=== PATIENT | female | born 1950 | race Caucasian/White ===

== ENCOUNTER 2017-04-09 08:29 | Day surgery (SDC) | payer MEDICARE, MEDICAID, SELFPAY | END 2017-04-09 09:10 | disposition home or self-care (01) | PROVIDERS: Family Provider Family Medicine; Visit Provider Nurse Anesthetist, Certified Registered | DX: M50.30 Other cervical disc degeneration, unspecified cervical region (principal); M54.02 Panniculitis affecting regions of neck and back, cervical region; M47.892 Other spondylosis, cervical region; Z79.899 Other long term (current) drug therapy | CPT/HCPCS: 64490; 64491; 64492; 82962; J1030 ==

== ENCOUNTER → 2017-05-31 08:34 | Outpatient (POV) | payer MEDICARE, MEDICAID, SELFPAY ==
[2017-05-31 08:46] VITALS: BP 138/74; PULSE 74; RESP 16; O2SAT 97; BMI 22.6
--- NOTE | 2017-05-31 08:59 | HMH.PAINSOAP ---
[facility] Pain Management SOAP Note Subjective:: She is a pleasant 66-year-old white female who presents today to discuss her last round of medial branch blocks of the cervical spine. Patient did very well for a week she states that she had 80-90% relief during that time. Patient also using a Flector patch. Patient states with the patch today that she has 0 pain. Patient is doing well on her Lyrica 75 mg once daily. She states that this significantly increases her functionality and helps with her fibromyalgia and neuropathy. Patient is currently doing well on all medications and denies side effects including sleepiness and constipation. Like to discuss RFA of the cervical facets. Patient has tried and failed physical therapy, conservative therapies including injections. Patient's cervical is axial in nature. Patient states range of motion increases her pain and rest relieves it. ROS General: no recent weight change, no fever, no sleep disturbances Respiratory: no cough, no shortness of air, no recurring pulmonary infections Cardiovascular/Peripheral Vascular: No chest pain, No palpitations, no edema, no shortness of breath. Gastrointestinal: no incontinence, normal bowel movements reported Genitourinary: no incontinence Musculoskeletal: Neck pain, back pain Psychiatric: normal mood/ affect, anxiety Neurological: [denies weakness in extremities], [denies balance issues] Objective:: Physical Exam General: Alert and oriented x3, no acute distress, pleasant and cooperative, [on room air] Lungs: Resps E/U, Symmetrical chest expansion Musculoskeletal: Flexion and extension of cervical spine somewhat guarded secondary to pain, deep tendon reflexes normal, strength in upper and lower extremities [5/5], normal gait noted Neurological: speech clear, manager embalmer funeral director equal, no gross sensory deficits Assessment:: Degenerative disc disease cervical spine, cervical facet arthropathy, cervical spondylosis, degenerative disc disease of the lumbar spine, fibromyalgia Plan:: Plan to refill her medications today Lyrica 75 mg 1 p.o. daily and [place] 5 mg 1 p.o. daily patient's [place] #[id number] reviewed and appropriate. Since last urine drug screen was appropriate she is going for another one today. We will follow-up with this. Patient also receiving a benzodiazepine from her primary care provider. I discussed the risks of taking both medications together and she understands. She is aware that she needs to call the office if she is having any side effects. He is to proceed with an RFA of the cervical spine. We will plan to ask insurance approval for cervical RFA of the C5-C6 C6-C7 C7-T1. We will start with the left side. I discussed in length with the patient both risks and benefits and she wishes to proceed. This note was dictated using voice recognition software may contain errors or omissions
--- NOTE | 2017-05-31 09:02 | P.CONS_ITS ---
[facility] Pain Management SOAP Note Subjective:: She is a pleasant 66-year-old white female who presents today to discuss her last round of medial branch blocks of the cervical spine. Patient did very well for a week she states that she had 80-90% relief during that time. Patient also using a Flector patch. Patient states with the patch today that she has 0 pain. Patient is doing well on her Lyrica 75 mg once daily. She states that this significantly increases her functionality and helps with her fibromyalgia and neuropathy. Patient is currently doing well on all medications and denies side effects including sleepiness and constipation. Like to discuss RFA of the cervical facets. Patient has tried and failed physical therapy, conservative therapies including injections. Patient's cervical is axial in nature. Patient states range of motion increases her pain and rest relieves it. ROS General: no recent weight change, no fever, no sleep disturbances Respiratory: no cough, no shortness of air, no recurring pulmonary infections Cardiovascular/Peripheral Vascular: No chest pain, No palpitations, no edema, no shortness of breath. Gastrointestinal: no incontinence, normal bowel movements reported Genitourinary: no incontinence Musculoskeletal: Neck pain, back pain Psychiatric: normal mood/ affect, anxiety Neurological: [denies weakness in extremities], [denies balance issues] Objective:: Physical Exam General: Alert and oriented x3, no acute distress, pleasant and cooperative, [ on room air] Lungs: Resps E/U, Symmetrical chest expansion Musculoskeletal: Flexion and extension of cervical spine somewhat guarded secondary to pain, deep tendon reflexes normal, strength in upper and lower extremities [5/5], normal gait noted Neurological: speech clear, telephone plant power operator equal, no gross sensory deficits Assessment:: Degenerative disc disease cervical spine, cervical facet arthropathy, cervical spondylosis, degenerative disc disease of the lumbar spine, fibromyalgia Plan:: Plan to refill her medications today Lyrica 75 mg 1 p.o. daily and [place] 5 mg 1 p.o. daily patient's [place] #[id number] reviewed and appropriate. Since last urine drug screen was appropriate she is going for another one today. We will follow-up with this. Patient also receiving a benzodiazepine from her primary care provider. I discussed the risks of taking both medications together and she understands. She is aware that she needs to call the office if she is having any side effects. He is to proceed with an RFA of the cervical spine. We will plan to ask insurance approval for cervical RFA of the C5-C6 C6-C7 C7- T1. We will start with the left side. I discussed in length with the patient both risks and benefits and she wishes to proceed. This note was dictated using voice recognition software may contain errors or omissions
[2017-05-31 10:54] LABS: Amphetamine/Metha Screen,Urine Negative ng/mL (<1000); Barbiturates Screen,Urine Negative ng/mL (<200); Benzodiazepines Screen,Urine Positive ng/mL (200); Cannabinoid Screen,Urine Negative ng/mL (<50); Cocaine Screen,Urine Negative ng/g (<300); Methadone Screen,Urine Negative ng/mL (<300); Opiate Screen,Urine Positive ng/mL (<300); Phencyclidine Screen,Urine Negative ng/mL (<25)
--- NOTE | 2017-05-31 15:19 | PC.PHONENOTE ---
called in rx for Lyrica 75mg BID with 2 refills to pt pharmacy per provider order
[2017-06-06 16:13] LABS: Codeine Negative (Cutoff=100); Hydrocodone Positive (.); Hydromorphone Negative (Cutoff=100); Morphine Negative (Cutoff=100)
[2017-06-06 17:15] LABS: Opiates Positive (.)
== END ==
PROVIDERS: Family Provider Family Medicine; PCP Family Medicine; Visit Provider Clinical Nurse Specialist Family Health
DX: M51.36 Other intervertebral disc degeneration, lumbar region (principal); M47.812 Spondylosis without myelopathy or radiculopathy, cervical region; Z79.899 Other long term (current) drug therapy
CPT/HCPCS: 99212; 80305; 80361; 80365; G0480

== ENCOUNTER 2017-07-02 12:12 | Day surgery (SDC) | payer MEDICARE, MEDICAID, SELFPAY ==
[2017-07-02 12:48] VITALS: BP 141/72; PULSE 66; RESP 16; O2SAT 97; BMI 23.6
--- NOTE | 2017-07-02 12:57 | PC.NURSE ---
patient alert/oriented during assessment. non-labored breathing noted, patient does not appear distressed during assessment.
[2017-07-02 13:27] VITALS: BP 148/93; PULSE 68; RESP 18
[2017-07-02 13:28] VITALS: BP 161/105; PULSE 69; RESP 20
--- NOTE | 2017-07-02 13:45 | P.PCN_ITS ---
- Procedure Date: 07/02/17 Time: 13:21 Anesthesiologist:: Beni Navarro MD Complications:: None Pre-procedure Diagnosis:: Degenerative disc disease of cervical spine with cervical facet arthropathy and cervical spondylosis Post-procedure Diagnosis:: Same Indications for Procedure:: This patient is a pleasant 66-year-old white female who we are treating for neck pain with cervical spondylosis. She had previous RFA of C5-6, C6-7 and C7- T1 facet joints of the left side. She is doing very well from this. She presents for right sided radiofrequency ablation at the same levels. Procedure Details:: Cervical RFA Informed consent was obtained and the risk and benefits of the procedure was explained to the patient. Patient was placed prone on the procedure table. The patient was prepped and draped in sterile fashion. C-arm fluoroscopy was used to view the lumbar spine. The skin and subcutaneous tissues were anesthetized using lidocaine. I placed 20-gauge RF needles into the facet joints of [C5-6, C6-7 and C7-T1] levels on the right side. We underwent sensory stimulation. There is good sensory stimulation at 0.8 V. We underwent motor stimulation. There is no motor stimulation at 2.5 V. We then anesthetized these levels with lidocaine and Depo-Medrol. I used a total of 40 mg Depo-Medrol for all 3 levels. I then burned all 3 levels of C5-6, C6-7 and C7-T1 facet joint/medial branches on the left side for 60 seconds at 80?C. We underwent 4 peng again each 1 for 60 seconds at 80?C. Patient tolerated the procedure well with no complication. Plan and Disposition:: We will follow-up with her in 1 month. We will reevaluate her symptoms at that time.
[2017-07-02 13:50] VITALS: BP 145/75; PULSE 63; O2SAT 97
[2017-07-06 10:03] LABS: POC Glucose,Bedside 123 mg/dL (70-110)
== END 2017-07-02 14:00 | disposition home or self-care (01) ==
LOC: SC.PAINP 12:14
PROVIDERS: Family Provider Family Medicine; PCP Family Medicine; Visit Provider Anesthesiology
DX: M50.30 Other cervical disc degeneration, unspecified cervical region (principal); M46.82 Other specified inflammatory spondylopathies, cervical region; M47.892 Other spondylosis, cervical region
CPT/HCPCS: 64633; 64634; 82962; J1030

== ENCOUNTER → 2017-07-19 08:44 | Outpatient (POV) | payer MEDICARE, MEDICAID, SELFPAY ==
[2017-07-19 09:11] VITALS: BP 114/68; PULSE 76; RESP 18; TEMP 36.6; O2SAT 96; BMI 23.6
--- NOTE | 2017-07-19 09:14 | HMH.PAINSOAP ---
[facility] Pain Management SOAP Note Subjective:: Patient is a 66-year-old white female who presents today for follow-up after cervical RFA. Patient states it has helped some but it has not been as beneficial as she thought. Patient rates her pain an 8 out of 10 today. Patient does take [place] 5 mg 1 p.o. daily. Patient is also on clonazepam from her primary care physician. She understands that we cannot increase her pain medication due to her benzodiazepine. Patient is here also for refills of medication. Patient states most of her pain is in her neck radiating to her shoulders at times. And her right knee. Resting makes it better while movement makes worse. Patient denies any side effects to her medication.ROS General: no recent weight change, no fever, no sleep disturbances Respiratory: no cough, no shortness of air, no recurring pulmonary infections Cardiovascular/Peripheral Vascular: No chest pain, No palpitations, no edema, no shortness of breath. Gastrointestinal: no incontinence, normal bowel movements reported Genitourinary: no incontinence Musculoskeletal: Neck pain, knee pain, low back pain Psychiatric: normal mood/ affect Neurological: [denies weakness in extremities], [denies balance issues] Objective:: Physical Exam General: Alert and oriented x3, no acute distress, pleasant and cooperative, [on room air] Lungs: Resps E/U, Symmetrical chest expansion, Eyes: PERRL Musculoskeletal: Flexion and extension of lumbar spine somewhat guarded secondary to pain, deep tendon reflexes normal, strength in upper and lower extremities [5/5], normal gait noted Neurological: speech clear, oil developer equal, no gross sensory deficits Assessment:: Facet arthropathy of the cervical spine, arthritis of right knee Plan:: Refill the patient's [place] 5 mg 1 p.o. daily. Patient's WILLIAM #[id number] reviewed and appropriate. Patient's UDS appropriate in the past. We will give HER-2 months worth of prescriptions and see her back in [address] Navarro has reviewed this chart and agrees with this plan of care Patient has been prescribed a controlled substance after being counseled on the medication, medication safety, and possible side effects. WILLIAM report has been obtained and reviewed prior to prescription and found to be appropriate. Opioid contract was reviewed and signed by the patient, and that they have agreed to all of the terms set forth by our compliance program. This note was dictated using voice recognition software and may contain errors or omissions
--- NOTE | 2017-07-19 09:19 | P.CONS_ITS ---
[facility] Pain Management SOAP Note Subjective:: Patient is a 66-year-old white female who presents today for follow-up after cervical RFA. Patient states it has helped some but it has not been as beneficial as she thought. Patient rates her pain an 8 out of 10 today. Patient does take [place] 5 mg 1 p.o. daily. Patient is also on clonazepam from her primary care physician. She understands that we cannot increase her pain medication due to her benzodiazepine. Patient is here also for refills of medication. Patient states most of her pain is in her neck radiating to her shoulders at times. And her right knee. Resting makes it better while movement makes worse. Patient denies any side effects to her medication.ROS General: no recent weight change, no fever, no sleep disturbances Respiratory: no cough, no shortness of air, no recurring pulmonary infections Cardiovascular/Peripheral Vascular: No chest pain, No palpitations, no edema, no shortness of breath. Gastrointestinal: no incontinence, normal bowel movements reported Genitourinary: no incontinence Musculoskeletal: Neck pain, knee pain, low back pain Psychiatric: normal mood/ affect Neurological: [denies weakness in extremities], [denies balance issues] Objective:: Physical Exam General: Alert and oriented x3, no acute distress, pleasant and cooperative, [ on room air] Lungs: Resps E/U, Symmetrical chest expansion, Eyes: PERRL Musculoskeletal: Flexion and extension of lumbar spine somewhat guarded secondary to pain, deep tendon reflexes normal, strength in upper and lower extremities [5/5], normal gait noted Neurological: speech clear, commercial construction estimator equal, no gross sensory deficits Assessment:: Facet arthropathy of the cervical spine, arthritis of right knee Plan:: Refill the patient's [place] 5 mg 1 p.o. daily. Patient's [place]IAM #[id number] reviewed and appropriate. Patient's UDS appropriate in the past. We will give HER-2 months worth of prescriptions and see her back in [address] Navarro has reviewed this chart and agrees with this plan of care Patient has been prescribed a controlled substance after being counseled on the medication, medication safety, and possible side effects. WILLIAM report has been obtained and reviewed prior to prescription and found to be appropriate. Opioid contract was reviewed and signed by the patient, and that they have agreed to all of the terms set forth by our compliance program. This note was dictated using voice recognition software and may contain errors or omissions
== END ==
PROVIDERS: Family Provider Family Medicine; PCP Family Medicine; Visit Provider Clinical Nurse Specialist Family Health
DX: M12.88 Other specific arthropathies, not elsewhere classified, other specified site (principal); M17.11 Unilateral primary osteoarthritis, right knee
CPT/HCPCS: 99212

== ENCOUNTER → 2017-08-09 08:20 | Outpatient (POV) | payer MEDICARE, MEDICAID, SELFPAY ==
--- NOTE | 2017-08-09 09:22 | HMH.PAINSOAP ---
[facility] Pain Management SOAP Note Subjective:: This patient is a pleasant 66-year-old white female who we are seeing for neck pain and low back pain. She had cervical RFA several weeks ago. She presents today with increasing neck and low back pain. Injections only give her temporary relief. She does say that her [place] 5 mg once daily does help. I reassured her that she can take 1 pill per day however we cannot increase this because she continues on clonazepam. She has no side effects with her medications. Her [place] and urine drug screen are all appropriate. [place] #[id number]. I have also given information on intrathecal therapy. She is not interested in pursuing a pump at this time however she will review the information. Objective:: Alert and oriented ?3 in no acute distress. Patient does have a normal gait. Tenderness over the midline of the cervical spine and lumbar spine. Motor strength of the upper and lower extremities is 5/5. There is no gross sensory deficit. Assessment:: Degenerative disc disease of the cervical and lumbar spine with cervical and lumbar spondylosis with radiculopathy symptoms Plan:: She can continue taking her [place] 5 mg 1 tablet per day. Will not increase her because she remains on clonazepam daily. I have given her information on intrathecal therapy. We will follow-up with her at her next regularly scheduled appointment. Has any problems or questions she is to call us in the pain clinic.
[2017-08-09 09:23] VITALS: BP 101/58; PULSE 86; RESP 18; TEMP 36.6; O2SAT 98; BMI 21.9
--- NOTE | 2017-08-09 09:26 | P.CONS_ITS ---
[facility] Pain Management SOAP Note Subjective:: This patient is a pleasant 66-year-old white female who we are seeing for neck pain and low back pain. She had cervical RFA several weeks ago. She presents today with increasing neck and low back pain. Injections only give her temporary relief. She does say that her [place] 5 mg once daily does help. I reassured her that she can take 1 pill per day however we cannot increase this because she continues on clonazepam. She has no side effects with her medications. Her [place] and urine drug screen are all appropriate. [place] # [id number]. I have also given information on intrathecal therapy. She is not interested in pursuing a pump at this time however she will review the information. Objective:: Alert and oriented ?3 in no acute distress. Patient does have a normal gait. Tenderness over the midline of the cervical spine and lumbar spine. Motor strength of the upper and lower extremities is 5/5. There is no gross sensory deficit. Assessment:: Degenerative disc disease of the cervical and lumbar spine with cervical and lumbar spondylosis with radiculopathy symptoms Plan:: She can continue taking her [place] 5 mg 1 tablet per day. Will not increase her because she remains on clonazepam daily. I have given her information on intrathecal therapy. We will follow-up with her at her next regularly scheduled appointment. Has any problems or questions she is to call us in the pain clinic.
== END ==
PROVIDERS: Family Provider Family Medicine; PCP Family Medicine; Visit Provider Anesthesiology
DX: M47.22 Other spondylosis with radiculopathy, cervical region (principal); M47.26 Other spondylosis with radiculopathy, lumbar region
CPT/HCPCS: 99212

== ENCOUNTER → 2017-10-04 08:47 | Outpatient (POV) | payer MEDICARE, MEDICAID, SELFPAY ==
[2017-10-04 09:14] VITALS: BP 110/81; PULSE 94; RESP 18; TEMP 36.6; O2SAT 97; BMI 22.6
--- NOTE | 2017-10-04 09:27 | P.CONS_ITS ---
[facility] Pain Management SOAP Note Subjective:: This patient is a pleasant 66-year-old white female who presents today for medication refills. Patient is currently being managed with [place] 5 mg 1 p.o. daily. Patient states that this helps her pain 60-70%. She denies any side effects. Patient's [place] #[id number] reviewed and appropriate. Patient's UDS has been appropriate in the past. Patient can take 1 pill per day however we cannot increase this because she continues with her clonazepam. Patient understands this. We have given her information on neuro stimulation and intrathecal therapy however due to the efficacy of her medication she would like to continue in this direction at this time. Patient has had injection of past with good relief. Patient rates her pain a 5 out of 10 today. Mostly in her legs. ROS General: no recent weight change, no fever, no sleep disturbances Respiratory: no cough, no shortness of air, no recurring pulmonary infections Cardiovascular/Peripheral Vascular: No chest pain, No palpitations, no edema, no shortness of breath. Gastrointestinal: no incontinence, normal bowel movements reported Genitourinary: no incontinence Musculoskeletal: Back pain, leg pain Psychiatric: normal mood/ affect Neurological: [denies weakness in extremities], [denies balance issues] Objective:: Physical Exam General: Alert and oriented x3, no acute distress, pleasant and cooperative, [ on room air] Lungs: Resps E/U, Symmetrical chest expansion, Eyes: PERRL Musculoskeletal: Flexion and extension of cervical and lumbar spine somewhat guarded secondary to pain, deep tendon reflexes normal, strength in upper and lower extremities [5/5], antalgic gait noted Neurological: speech clear, labor economist equal, no gross sensory deficits Assessment:: Degenerative disc disease of the cervical and lumbar spine with cervical and lumbar spondylosis with radiculopathy symptoms Plan:: We will refill her [place] 5 mg 1 tablet daily. We will give HER-2 months worth of prescriptions. 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 We will follow-up with her in [address] Navarro has reviewed this chart and agrees with this plan of care. The patient has any problems prior to her next appointment she is to call our office. Patient scattered drug screen both reviewed. Patient has been prescribed a controlled substance after being counseled on the medication, medication safety, and possible side effects. WILLIAM report has been obtained and reviewed prior to prescription and found to be appropriate. Opioid contract was reviewed and signed by the patient, and that they have agreed to all of the terms set forth by our compliance program. This note was dictated using voice recognition software and may contain errors or omissions
[2017-10-04 18:28] LABS: Amphetamine/Metha Screen,Urine Negative ng/mL (<1000); Barbiturates Screen,Urine Negative ng/mL (<200); Benzodiazepines Screen,Urine Positive ng/mL (200); Cannabinoid Screen,Urine Negative ng/mL (<50); Cocaine Screen,Urine Negative ng/g (<300); Methadone Screen,Urine Negative ng/mL (<300); Opiate Screen,Urine Positive ng/mL (<300); Phencyclidine Screen,Urine Negative ng/mL (<25)
[2017-10-10 22:07] LABS: Codeine Negative (Cutoff=100); Hydrocodone Positive (.); Hydromorphone Positive (.); Morphine Negative (Cutoff=100)
[2017-10-12 09:01] LABS: Opiates Positive (.)
== END ==
PROVIDERS: Family Provider Family Medicine; PCP Family Medicine; Visit Provider Clinical Nurse Specialist Family Health
DX: M54.16 Radiculopathy, lumbar region (principal); M54.12 Radiculopathy, cervical region; Z79.899 Other long term (current) drug therapy
CPT/HCPCS: 99212; 80305; 80361; 80365; G0480

== ENCOUNTER → 2017-12-14 08:56 | Outpatient (POV) | payer MEDICARE, MEDICAID, SELFPAY ==
[2017-12-14 09:22] VITALS: BP 121/64; PULSE 76; RESP 18; O2SAT 98; BMI 22.3
--- NOTE | 2017-12-14 10:16 | HMH.PAINSOAP ---
[facility] Pain Management SOAP Note Subjective:: Patient is a pleasant 66-year-old white female who presents today for medication refills. Patient is currently being medically managed with [place] 5 mg 1 p.o. daily. Patient states that this helps her pain up to 80%. Patient denies any side effects. Patient's WILLIAM #[id number] reviewed and appropriate. Patient's urine drug screen has been appropriate in the past. Patient can take 1 pill per day and we do not increase it due to her use of clonazepam. Patient understands this. Patient is doing well at this time with this regimen. Patient has had good relief with injective therapy in the past. Patient states that this is helped significantly throughout the summer. She rates her pain a 4 out of 10 today. ROS General: no recent weight change, no fever, no sleep disturbances Respiratory: no cough, no shortness of air, no recurring pulmonary infections Cardiovascular/Peripheral Vascular: No chest pain, No palpitations, no edema, no shortness of breath. Gastrointestinal: no incontinence, normal bowel movements reported Genitourinary: no incontinence Musculoskeletal: Back pain, leg pain, neck pain Psychiatric: normal mood/ affect Neurological: [denies weakness in extremities], [denies balance issues] Objective:: Physical Exam General: Alert and oriented x3, no acute distress, pleasant and cooperative, [on room air] Lungs: Resps E/U, Symmetrical chest expansion, Eyes: PERRL Musculoskeletal: Flexion and extension of cervical and lumbar spine somewhat guarded secondary to pain, deep tendon reflexes normal, strength in upper and lower extremities [5/5], slightly antalgic gait noted Neurological: speech clear, forest worker equal, no gross sensory deficits Assessment:: Degenerative disc disease of cervical and lumbar spine with cervical and lumbar spondylosis with radiculopathy Plan:: We will refill the patient's [place] 5 mg 1 tab p.o. daily. We will give HER-2 months worth of prescriptions and she can pick the third month up in the interim. We will follow her up with her in [address] Navarro has reviewed this chart and agrees with this plan of care. Patient's been instructed to call the office if she has any issues prior to next appointment. Patient wants to discuss injective therapy at her next appointment because she states that the cold weather makes her pain worse. Patient has been prescribed a controlled substance after being counseled on the medication, medication safety, and possible side effects. WILLIAM report has been obtained and reviewed prior to prescription and found to be appropriate. Opioid contract was reviewed and signed by the patient, and that they have agreed to all of the terms set forth by our compliance program. This note was dictated using voice recognition software and may contain errors or omissions
== END ==
PROVIDERS: Family Provider Family Medicine; PCP Family Medicine; Visit Provider Clinical Nurse Specialist Family Health
DX: M50.30 Other cervical disc degeneration, unspecified cervical region (principal); M51.16 Intervertebral disc disorders with radiculopathy, lumbar region; M47.896 Other spondylosis, lumbar region
CPT/HCPCS: 99213

== ENCOUNTER → 2018-01-04 08:22 | Outpatient (POV) | payer MEDICARE, MEDICAID, SELFPAY ==
--- NOTE | 2018-01-04 09:16 | P.CONS_ITS ---
[facility] Pain Management SOAP Note Subjective:: Patient is a pleasant 67-year-old white female who presents today for follow-up. Patient is currently she is on [place] 5 mg 1 p.o. daily. Patient stated that she did have a headache however she went to Dr. Lara and it has subsided. She rates her pain today a 6 out of 10 however she states this is her baseline. Patient and I discussed potentially doing injections in the future. Patient may want another cervical epidural steroid injection in the future. Patient states she did well with this. ROS General: no recent weight change, no fever, no sleep disturbances Respiratory: no cough, no shortness of air, no recurring pulmonary infections Cardiovascular/Peripheral Vascular: No chest pain, No palpitations, no edema, no shortness of breath. Gastrointestinal: no incontinence, normal bowel movements reported Genitourinary: no incontinence Musculoskeletal: Neck pain, back pain Psychiatric: normal mood/ affect Neurological: [denies weakness in extremities], [denies balance issues] Objective:: Physical Exam General: Alert and oriented x3, no acute distress, pleasant and cooperative, [on room air] Lungs: Resps E/U, Symmetrical chest expansion, Eyes: PERRL Musculoskeletal: Flexion and extension of cervical and lumbar spine somewhat guarded secondary to pain, deep tendon reflexes normal, strength in upper and lower extremities [5/5], antalgic gait noted Neurological: speech clear, journalism teacher equal, no gross sensory deficits Assessment:: Degenerative disc disease of the cervical spine with cervical radiculopathy and degenerative disc disease lumbar spine with lumbar spondylosis Plan:: We will see the patient back in February. Patient had a call if she needs a cervical epidural steroid injection prior to this. Patient states she is doing well. This note was dictated using voice recognition software and may contain errors or omissions
[2018-01-04 09:39] VITALS: BP 127/83; PULSE 75; RESP 18; O2SAT 98; BMI 21.5
[2018-01-04 11:06] LABS: Amphetamine/Metha Screen,Urine Negative ng/mL (<1000); Barbiturates Screen,Urine Negative ng/mL (<200); Benzodiazepines Screen,Urine Negative ng/mL (<200); Cannabinoid Screen,Urine Negative ng/mL (<50); Cocaine Screen,Urine Negative ng/mL (<300); Methadone Screen,Urine Negative ng/mL (<300); Opiate Screen,Urine Positive ng/mL (<300); Phencyclidine Screen,Urine Negative ng/mL (<25)
[2018-01-10 15:15] LABS: Codeine Negative (Cutoff=100); Hydrocodone Positive (.); Hydromorphone Negative (Cutoff=100); Morphine Negative (Cutoff=100)
[2018-01-11 06:10] LABS: Opiates Positive (.)
== END ==
PROVIDERS: Family Provider Family Medicine; PCP Family Medicine; Visit Provider Clinical Nurse Specialist Family Health
DX: M50.10 Cervical disc disorder with radiculopathy, unspecified cervical region (principal); M51.36 Other intervertebral disc degeneration, lumbar region; M47.896 Other spondylosis, lumbar region; Z79.899 Other long term (current) drug therapy
CPT/HCPCS: 80305; 80361; 80365; 99213; G0480

== ENCOUNTER → 2018-03-07 08:12 | Outpatient (POV) | payer MEDICARE, MEDICAID, SELFPAY ==
[2018-03-07 08:57] VITALS: BP 145/80; PULSE 67; RESP 18; O2SAT 98; BMI 22.6
--- NOTE | 2018-03-07 08:59 | HMH.PAINSOAP ---
[facility] Pain Management SOAP Note Subjective:: Is a pleasant 67-year-old white female who presents today for medication refills and to discuss getting another injection. Patient has had cervical epidural steroid injections in the past and has done well with it. She rates her pain today a out of 10. Patient states the weather makes it much worse. Patient is currently on [place] 5 mg 1 p.o. daily. Patient states that when she gets her injection she gets 80% relief up to 3-month. Patient is not on any anticoagulation therapy. Patient is continuing a home stretching exercise program. ROS General: no recent weight change, no fever, no sleep disturbances Respiratory: no cough, no shortness of air, no recurring pulmonary infections Cardiovascular/Peripheral Vascular: No chest pain, No palpitations, no edema, no shortness of breath. Gastrointestinal: no incontinence, normal bowel movements reported Genitourinary: no incontinence Musculoskeletal: Neck pain, arm pain Psychiatric: normal mood/ affect Neurological: [denies weakness in extremities], [denies balance issues] Objective:: Physical Exam General: Alert and oriented x3, no acute distress, pleasant and cooperative, [on room air] Lungs: Resps E/U, Symmetrical chest expansion Eyes: PERRL Musculoskeletal: Flexion and extension of cervical spine somewhat guarded secondary to pain, deep tendon reflexes normal, strength in upper and lower extremities [5/5], slightly antalgic gait noted Neurological: speech clear, painter spray equal, no gross sensory deficits Assessment:: Degenerative disc disease cervical spine with cervical radiculopathy and degenerative disc disease lumbar spine with lumbar spondylosis Plan:: We will refill the patient [place] 5 mg 1 p.o. daily give her 2 months worth of prescriptions. We will also set her up for a cervical epidural steroid injection at C5-C6. Patient will return for this. Dr. Navarro has reviewed this chart and agrees with this plan of care. Patient's WILLIAM #[id number] reviewed and appropriate. Patient has been prescribed a controlled substance after being counseled on the medication, medication safety, and possible side effects. WILLIAM report has been obtained and reviewed prior to prescription and found to be appropriate. Opioid contract was reviewed and signed by the patient, and that they have agreed to all of the terms set forth by our compliance program. This note was dictated using voice recognition software and may contain errors or omissions
--- NOTE | 2018-03-07 09:02 | P.CONS_ITS ---
[facility] Pain Management SOAP Note Subjective:: Is a pleasant 67-year-old white female who presents today for medication refills and to discuss getting another injection. Patient has had cervical epidural steroid injections in the past and has done well with it. She rates her pain today a out of 10. Patient states the weather makes it much worse. Patient is currently on [place] 5 mg 1 p.o. daily. Patient states that when she gets her injection she gets 80% relief up to 3-month. Patient is not on any anticoagulation therapy. Patient is continuing a home stretching exercise program. ROS General: no recent weight change, no fever, no sleep disturbances Respiratory: no cough, no shortness of air, no recurring pulmonary infections Cardiovascular/Peripheral Vascular: No chest pain, No palpitations, no edema, no shortness of breath. Gastrointestinal: no incontinence, normal bowel movements reported Genitourinary: no incontinence Musculoskeletal: Neck pain, arm pain Psychiatric: normal mood/ affect Neurological: [denies weakness in extremities], [denies balance issues] Objective:: Physical Exam General: Alert and oriented x3, no acute distress, pleasant and cooperative, [on room air] Lungs: Resps E/U, Symmetrical chest expansion Eyes: PERRL Musculoskeletal: Flexion and extension of cervical spine somewhat guarded secondary to pain, deep tendon reflexes normal, strength in upper and lower extremities [5/5], slightly antalgic gait noted Neurological: speech clear, manager fast food equal, no gross sensory deficits Assessment:: Degenerative disc disease cervical spine with cervical radiculopathy and degenerative disc disease lumbar spine with lumbar spondylosis Plan:: We will refill the patient [place] 5 mg 1 p.o. daily give her 2 months worth of prescriptions. We will also set her up for a cervical epidural steroid injection at C5-C6. Patient will return for this. Dr. Navarro has reviewed this chart and agrees with this plan of care. Patient's WILLIAM #[id number] reviewed and appropriate. Patient has been prescribed a controlled substance after being counseled on the medication, medication safety, and possible side effects. WILLIAM report has been obtained and reviewed prior to prescription and found to be appropriate. Opioid contract was reviewed and signed by the patient, and that they have agreed to all of the terms set forth by our compliance program. This note was dictated using voice recognition software and may contain errors or omissions
== END ==
PROVIDERS: PCP Family Medicine; Visit Provider Clinical Nurse Specialist Family Health
DX: M50.10 Cervical disc disorder with radiculopathy, unspecified cervical region (principal); M51.36 Other intervertebral disc degeneration, lumbar region; M47.896 Other spondylosis, lumbar region
CPT/HCPCS: 99213

== ENCOUNTER → 2018-04-18 08:28 | Outpatient (POV) | payer MEDICARE, MEDICAID, SELFPAY ==
[2018-04-18 08:54] VITALS: BP 121/63; PULSE 77; RESP 18; O2SAT 98; BMI 23.4
--- NOTE | 2018-04-18 09:47 | HMH.PAINSOAP ---
[facility] Pain Management SOAP Note Subjective:: Patient is a pleasant 67-year-old white female who presents today for follow-up after cervical epidural steroid injection. Patient is doing well. Patient currently is medically managed as well with [place] 5 mg 1 p.o. daily. She rates her pain a 5 out of 10 today stating she is doing well she states she does have neuropathy however she is going to be doing some circulatory test in order to help determine the cause of the worsening pain in her legs. ROS General: no recent weight change, no fever, no sleep disturbances Respiratory: no cough, no shortness of air, no recurring pulmonary infections Cardiovascular/Peripheral Vascular: No chest pain, No palpitations, no edema, no shortness of breath. Gastrointestinal: no incontinence, normal bowel movements reported Genitourinary: no incontinence Musculoskeletal: Neck pain Psychiatric: normal mood/ affect Neurological: [denies weakness in extremities], [denies balance issues] Objective:: Physical Exam General: Alert and oriented x3, no acute distress, pleasant and cooperative, [on room air] Lungs: Resps E/U, Symmetrical chest expansion, Eyes: PERRL Musculoskeletal: Flexion and extension of cervical spine somewhat guarded secondary to pain, deep tendon reflexes normal, strength in upper and lower extremities [5/5], slightly antalgic gait noted Neurological: speech clear, cert pharmacy tech equal, no gross sensory deficits Assessment:: Degenerative disc disease cervical spinal cervical radiculopathy and lumbar spondylosis Plan:: We will refill her [place] 5 mg 1 p.o. daily and give her 2 months worth of medication. We will see her back in's and reassess her symptoms at that time. Patient's been instructed to call the office if she has any issues prior to her next appointment. Dr. Navarro has reviewed this chart and agrees with this plan of care. Patient has been prescribed a controlled substance after being counseled on the medication, medication safety, and possible side effects. WILLIAM report has been obtained and reviewed prior to prescription and found to be appropriate. Opioid contract was reviewed and signed by the patient, and that they have agreed to all of the terms set forth by our compliance program. This note was dictated using voice recognition software and may contain errors or omissions
--- NOTE | 2018-04-18 09:50 | P.CONS_ITS ---
[facility] Pain Management SOAP Note Subjective:: Patient is a pleasant 67-year-old white female who presents today for follow-up after cervical epidural steroid injection. Patient is doing well. Patient currently is medically managed as well with [place] 5 mg 1 p.o. daily. She rates her pain a 5 out of 10 today stating she is doing well she states she does have neuropathy however she is going to be doing some circulatory test in order to help determine the cause of the worsening pain in her legs. ROS General: no recent weight change, no fever, no sleep disturbances Respiratory: no cough, no shortness of air, no recurring pulmonary infections Cardiovascular/Peripheral Vascular: No chest pain, No palpitations, no edema, no shortness of breath. Gastrointestinal: no incontinence, normal bowel movements reported Genitourinary: no incontinence Musculoskeletal: Neck pain Psychiatric: normal mood/ affect Neurological: [denies weakness in extremities], [denies balance issues] Objective:: Physical Exam General: Alert and oriented x3, no acute distress, pleasant and cooperative, [on room air] Lungs: Resps E/U, Symmetrical chest expansion, Eyes: PERRL Musculoskeletal: Flexion and extension of cervical spine somewhat guarded secondary to pain, deep tendon reflexes normal, strength in upper and lower extremities [5/5], slightly antalgic gait noted Neurological: speech clear, plastic eye technician equal, no gross sensory deficits Assessment:: Degenerative disc disease cervical spinal cervical radiculopathy and lumbar spondylosis Plan:: We will refill her [place] 5 mg 1 p.o. daily and give her 2 months worth of medication. We will see her back in's and reassess her symptoms at that time. Patient's been instructed to call the office if she has any issues prior to her next appointment. Dr. Navarro has reviewed this chart and agrees with this plan of care. Patient has been prescribed a controlled substance after being counseled on the medication, medication safety, and possible side effects. WILLIAM report has been obtained and reviewed prior to prescription and found to be appropriate. Opioid contract was reviewed and signed by the patient, and that they have agreed to all of the terms set forth by our compliance program. This note was dictated using voice recognition software and may contain errors or omissions
== END ==
PROVIDERS: PCP Family Medicine; Visit Provider Clinical Nurse Specialist Family Health
DX: M50.10 Cervical disc disorder with radiculopathy, unspecified cervical region (principal); M47.896 Other spondylosis, lumbar region
CPT/HCPCS: 99213

== ENCOUNTER → 2018-04-27 08:01 | Outpatient (CLI) | payer MEDICARE, MEDICAID, SELFPAY ==
--- NOTE | 2018-04-27 | US_ITS ---
US Arterial Ankle Brachial Ind History: Left-sided claudication, left-sided foot pain, diabetes, hyperlipidemia ORDERING PHYSICIAN: Robert Lara MD PATIENT AGE: 67 years TECHNIQUE: Segmental pressures obtained of both right and left leg. These are compared to brachial blood pressure to yield index at each level sampled including summary EMERSON. The data sheets from the procedure are available in PACS FINDINGS Rest study only performed today No prior studies available for comparison. Blood pressures reported are in millimeters mercury. RIGHT LEG EMERSON = 1.0. RIGHT LEG TBI=0.4 Brachial BP: 114 Thigh BP: 122 Calf BP: 121 Ankle PT: 114 Ankle DP : 113 Digit =41 LEFT LEG EMERSON = 1.1 LEFT LEG TBI= 0.5 Brachial BPD: 111 Thigh BP: 115 Calf BP: 123 Ankle PT:120 Ankle DP: 125 Digit = 58 Pulses and waveforms: Diminished pulses on the left with normal waveforms IMPRESSION: The ABIs as reported above are within normal limits. The TBI's are low bilaterally suggesting small vessel disease
--- NOTE | 2018-04-27 08:30 | MM_ITS ---
MM Dig screening mamm BI w/CAD CAD Screening COMPARISON: Digital mammograms 03/02/2016 INDICATION: There is no personal or family history of breast cancer TECHNIQUE: Standard CC and MLO images were obtained. R2 CAD reviewed. FINDINGS: The breasts are composed primarily of fat with minimal scattered fibroglandular densities in the central portions of both breasts. There is a possible asymmetric density upper outer quadrant right breast highlighted by CAD on the cc view only. Recommend the patient return for spot compression views of the areas marked on the film. Ultrasound may be necessary as well. There are no suspicious microcalcifications. IMPRESSION: Fatty type breast parenchyma with possible asymmetric density right breast BI-RADS Category: 0 Need Additional Imaging Evaluation RECOMMENDED FOLLOW-UP: IMM - IMMEDIATE FOLLOW-UP RECOMMENDED (A letter has been sent to the patient regarding results of the study.)
== END ==
PROVIDERS: PCP Family Medicine; Visit Provider Family Medicine
DX: Z12.31 Encounter for screening mammogram for malignant neoplasm of breast (principal); I73.9 Peripheral vascular disease, unspecified
CPT/HCPCS: 77067; 93922

== ENCOUNTER → 2018-05-10 12:57 | Outpatient (CLI) | payer MEDICARE, MEDICAID, SELFPAY ==
--- NOTE | 2018-05-10 12:59 | MM_ITS ---
MM Dig mamm DX unilat RT CAD COMPARISON: Digital mammograms with CAD 04/27/2018 INDICATION: Additional views for evaluation possible asymmetric density right breast TECHNIQUE: Spot compression MLO and CC views and rolled CC views and 90 lateral view. FINDINGS: The possible asymmetric density just deep to the nipple right breast is still present on the spot CC view but is not definitely seen on the rolled CC views or 90 degrees lateral view. Ultrasound performed the same date show no correlation for this possible asymmetric density. IMPRESSION: Probable summation shadow of glandular elements, recommend the patient continue with yearly screening mammography BI-RADS Category: 1 Negative RECOMMENDED FOLLOW-UP: 1YR - 1 YEAR FOLLOW-UP (A letter has been sent to the patient regarding results of the study.)
--- NOTE | 2018-05-10 13:30 | US_ITS ---
US breast RT complete COMPARISON: Diagnostic mammogram right breast same date HISTORY: Possible asymmetric density right breast on screening mammogram TECHNIQUE: Targeted ultrasound circumareolar region FINDINGS: Rather homogeneous echogenicity seen in the area scanned. There is no suspicious cystic or solid nodule identified. There are no findings to suggest architectural distortion. There is a normal-appearing node in the right axilla. IMPRESSION: Unremarkable ultrasound right breast with no correlation for possible asymmetric density on mammogram
== END ==
PROVIDERS: PCP Family Medicine; Visit Provider Family Medicine
DX: R92.8 Other abnormal and inconclusive findings on diagnostic imaging of breast (principal); R92.1 Mammographic calcification found on diagnostic imaging of breast
CPT/HCPCS: 76641; 77065

== ENCOUNTER → 2018-06-28 08:21 | Outpatient (POV) | payer MEDICARE, MEDICAID, SELFPAY ==
[2018-06-28 08:59] VITALS: BP 116/67; PULSE 72; RESP 18; O2SAT 98; BMI 22.3
--- NOTE | 2018-06-28 09:07 | P.CONS_ITS ---
[facility] Pain Management SOAP Note Subjective:: Patient is a pleasant 67-year-old white female who presents today for follow-up. Patient is doing well rating her pain a 6 out of 10. She states it is affected by the weather. Most of her pain is in her neck and arms. Patient is currently being medically managed on [place] 5 mg 1 p.o. daily she denies any side effects. Patient currently had a circulatory test which was in normal range. Patient otherwise doing well patient's WILLIAM reviewed and appropriate. Patient's urine drug screens have been appropriate in the past ROS General: no recent weight change, no fever, no sleep disturbances Respiratory: no cough, no shortness of air, no recurring pulmonary infections Cardiovascular/Peripheral Vascular: No chest pain, No palpitations, no edema, no shortness of breath. Gastrointestinal: no incontinence, normal bowel movements reported Genitourinary: no incontinence Musculoskeletal: Neck, arm pain Psychiatric: normal mood/ affect Neurological: [denies weakness in extremities], [denies balance issues] Objective:: Physical Exam General: Alert and oriented x3, no acute distress, pleasant and cooperative, [on room air] Lungs: Resps E/U, Symmetrical chest expansion, Eyes: PERRL Musculoskeletal: Flexion and extension of cervical spine somewhat guarded secondary to pain, deep tendon reflexes normal, strength in upper and lower extremities [5/5], normal gait noted Neurological: speech clear, pharmaceutical laboratory technician equal, no gross sensory deficits Assessment:: Degenerative disc disease cervical spine with cervical radiculopathy and degenerative disc disease lumbar spine with lumbar spondylosis Plan:: We will refill the patient's [place] 5 mg 1 p.o. daily and give her 2 months worth of medication we will see her back in 2 months and reassess her symptoms at that time. She is been instructed to call the office if she has any issues prior to her next appointment. Patient has been prescribed a controlled substance after being counseled on the medication, medication safety, and possible side effects. WILLIAM report has been obtained and reviewed prior to prescription and found to be appropriate. Opioid contract was reviewed and signed by the patient, and that they have agreed to all of the terms set forth by our compliance program. Dr. Navarro has reviewed this note and agrees with this plan of care. This note was dictated using voice recognition software and may contain errors or omissions
[2018-06-28 10:24] LABS: Amphetamine/Metha Screen,Urine Negative ng/mL (<1000); Barbiturates Screen,Urine Negative ng/mL (<200); Benzodiazepines Screen,Urine Positive ng/mL (<200); Cannabinoid Screen,Urine Negative ng/mL (<50); Cocaine Screen,Urine Negative ng/mL (<300); Methadone Screen,Urine Negative ng/mL (<300); Opiate Screen,Urine Positive ng/mL (<300); Phencyclidine Screen,Urine Negative ng/mL (<25)
[2018-07-02 12:13] LABS: Codeine Negative (Cutoff=100); Hydrocodone Positive (.); Hydromorphone Positive (.); Morphine Negative (Cutoff=100)
[2018-07-04 08:17] LABS: Opiates Positive (.)
== END ==
PROVIDERS: PCP Family Medicine; Visit Provider Clinical Nurse Specialist Family Health
DX: M51.36 Other intervertebral disc degeneration, lumbar region (principal); M47.896 Other spondylosis, lumbar region; Z79.899 Other long term (current) drug therapy
CPT/HCPCS: 80305; 80361; 80365; 99213; G0480

== ENCOUNTER → 2018-08-29 08:07 | Outpatient (POV) | payer MEDICARE, MEDICAID, SELFPAY ==
[2018-08-29 08:31] VITALS: BP 122/81; PULSE 68; RESP 18; O2SAT 99; BMI 23.0
--- NOTE | 2018-08-29 08:37 | HMH.PAINSOAP ---
[facility] Pain Management SOAP Note Subjective:: Patient is a pleasant 67-year-old white female who presents today for medication refills. She is currently on [place] 5 mg 1 p.o. daily. She is also on clonazepam from her primary care physician. Patient rates her pain a 9 out of 10. She states that it is time for another epidural steroid injection. Patient has had these in the past with good relief. She has radiation into her left arm specifically. Patient has been talked to about a neurostimulator and intrathecal therapy in the past. At this time she would like to stick with injections in her medication. Given the efficacy. [facility] #[id number] reviewed and appropriate. Patient's urine drug screens have been appropriate in the past. Patient denies side effects from medication. ROS General: no recent weight change, no fever, no sleep disturbances Respiratory: no cough, no shortness of air, no recurring pulmonary infections Cardiovascular/Peripheral Vascular: No chest pain, No palpitations, no edema, no shortness of breath. Gastrointestinal: no incontinence, normal bowel movements reported Genitourinary: no incontinence Musculoskeletal: Neck pain, arm pain Psychiatric: normal mood/ affect, Neurological: [denies weakness in extremities], [denies balance issues] Objective:: Physical Exam General: Alert and oriented x3, no acute distress, pleasant and cooperative, [on room air] Lungs: Resps E/U, Symmetrical chest expansion, Eyes: PERRL Musculoskeletal: Flexion and extension of cervical spine somewhat guarded secondary to pain, deep tendon reflexes normal, strength in upper and lower extremities [5/5], slightly antalgic gait noted Neurological: speech clear, ornamental rail installer equal, no gross sensory deficits Assessment:: Degenerative disc disease cervical spinal cervical radiculopathy and degenerative disc disease lumbar spine with lumbar spondylosis Plan:: We will refill the patient's [place] 5 mg 1 p.o. daily and give her 2 months worth of medication. We will see her back in 2 months reassess her symptoms at that time in the meantime we will schedule her for an epidural steroid injection at C5-C6. She is instructed to call the office if she has any issues prior to her next appointment. She is continuing a home stretching program. She is on anti-inflammatories. Patient has had these in the past with good relief. She is not on any anticoagulation therapy. Patient has been prescribed a controlled substance after being counseled on the medication, medication safety, and possible side effects. WILLIAM report has been obtained and reviewed prior to prescription and found to be appropriate. Opioid contract was reviewed and signed by the patient, and that they have agreed to all of the terms set forth by our compliance program. Dr. Navarro has reviewed this note and agrees with this plan of care. This note was dictated using voice recognition software and may contain errors or omissions
--- NOTE | 2018-08-29 08:41 | P.CONS_ITS ---
[facility] Pain Management SOAP Note Subjective:: Patient is a pleasant 67-year-old white female who presents today for medication refills. She is currently on [place] 5 mg 1 p.o. daily. She is also on clonazepam from her primary care physician. Patient rates her pain a 9 out of 10. She states that it is time for another epidural steroid injection. Patient has had these in the past with good relief. She has radiation into her left arm specifically. Patient has been talked to about a neurostimulator and intrathecal therapy in the past. At this time she would like to stick with injections in her medication. Given the efficacy. [facility] #[id number] reviewed and appropriate. Patient's urine drug screens have been appropriate in the past. Patient denies side effects from medication. ROS General: no recent weight change, no fever, no sleep disturbances Respiratory: no cough, no shortness of air, no recurring pulmonary infections Cardiovascular/Peripheral Vascular: No chest pain, No palpitations, no edema, no shortness of breath. Gastrointestinal: no incontinence, normal bowel movements reported Genitourinary: no incontinence Musculoskeletal: Neck pain, arm pain Psychiatric: normal mood/ affect, Neurological: [denies weakness in extremities], [denies balance issues] Objective:: Physical Exam General: Alert and oriented x3, no acute distress, pleasant and cooperative, [on room air] Lungs: Resps E/U, Symmetrical chest expansion, Eyes: PERRL Musculoskeletal: Flexion and extension of cervical spine somewhat guarded secondary to pain, deep tendon reflexes normal, strength in upper and lower extremities [5/5], slightly antalgic gait noted Neurological: speech clear, pressurizer equal, no gross sensory deficits Assessment:: Degenerative disc disease cervical spinal cervical radiculopathy and degenerative disc disease lumbar spine with lumbar spondylosis Plan:: We will refill the patient's [place] 5 mg 1 p.o. daily and give her 2 months worth of medication. We will see her back in 2 months reassess her symptoms at that time in the meantime we will schedule her for an epidural steroid injection at C5-C6. She is instructed to call the office if she has any issues prior to her next appointment. She is continuing a home stretching program. She is on anti- inflammatories. Patient has had these in the past with good relief. She is not on any anticoagulation therapy. Patient has been prescribed a controlled substance after being counseled on the medication, medication safety, and possible side effects. WILLIAM report has been obtained and reviewed prior to prescription and found to be appropriate. Opioid contract was reviewed and signed by the patient, and that they have agreed to all of the terms set forth by our compliance program. Dr. Navarro has reviewed this note and agrees with this plan of care. This note was dictated using voice recognition software and may contain errors or omissions
== END ==
PROVIDERS: PCP Family Medicine; Visit Provider Clinical Nurse Specialist Family Health
DX: M50.10 Cervical disc disorder with radiculopathy, unspecified cervical region (principal); M51.36 Other intervertebral disc degeneration, lumbar region; M47.896 Other spondylosis, lumbar region
CPT/HCPCS: 99212

== ENCOUNTER → 2018-09-09 10:58 | Outpatient (CLI) | payer MEDICARE, MEDICAID, SELFPAY ==
--- NOTE | 2018-09-09 11:04 | XR_ITS ---
XR chest 2V HISTORY: ITS.REASON: SOB ORDERING PHYSICIAN: Robert Lara MD PATIENT AGE: 67 years COMPARISON: 03/23/2017 FINDINGS: The cardiomediastinal silhouette and pulmonary vascularity are within normal limits. The lungs are clear without infiltrates, suspicious nodules, or pleural effusions. No acute bony abnormalities. IMPRESSION: No change with no acute finding
== END ==
PROVIDERS: PCP Family Medicine; Visit Provider Family Medicine
DX: R06.02 Shortness of breath (principal)
CPT/HCPCS: 71046

== ENCOUNTER → 2018-09-21 07:59 | Outpatient (CLI) | payer MEDICARE, MEDICAID, SELFPAY ==
--- NOTE | 2018-09-21 08:02 | NM_ITS ---
CARDIOLITE SPECT MYOCARDIAL PERFUSION LEXISCAN, REST AND STRESS: [facility] REVIEW QGS EF AND WALL MOTION EVALUATION: QPS - PERFUSION EVALUATION HISTORY: CH, SOB DOSE: 10.21 mCi technetium 99m mibi intravenously at rest followed by 31.3 mCi technetium 99m mibi following the intravenous ministration of 0.4 mg of Lexiscan. Resting blood pressure is 138/84. Stress blood pressure 113/56. FINDINGS: Ejection fraction is calculated to be 66%. Uniform myocardial activity at both stress and rest. IMPRESSION: No scintigraphic evidence of Lexiscan-induced myocardial ischemia with normal ejection fraction normal wall motion
--- NOTE | 2018-09-21 10:04 | HMH.ITSHM ---
Current Home Medications as stated by this patient Iram Canales or medical service representative. []loratadine hydro/apap clonazepam losartin metformin atorvastatin
== END ==
PROVIDERS: PCP Family Medicine; Visit Provider Family Medicine
DX: R07.9 Chest pain, unspecified (principal); R06.09 Other forms of dyspnea
CPT/HCPCS: 78452; 93017; A9502; J2785

== ENCOUNTER 2018-09-30 08:19 | Day surgery (SDC) | payer MEDICARE, MEDICAID, SELFPAY ==
[2018-09-30 08:51] VITALS: BP 113/70; PULSE 66; RESP 18; O2SAT 98; BMI 22.3
[2018-09-30 09:32] VITALS: BP 174/66; PULSE 65; RESP 18
[2018-09-30 09:33] VITALS: BP 170/65; PULSE 66; RESP 18; O2SAT 98
--- NOTE | 2018-09-30 09:39 | HMH.PMPROC ---
- Procedure Date: 09/30/18 Time: 09:40 Anesthesiologist:: Beni Navarro MD Complications:: None Pre-procedure Diagnosis:: Degenerative disc disease of the cervical spine with cervical radiculopathy symptoms Post-procedure Diagnosis:: Same Indications for Procedure:: This patient is a pleasant 67-year-old white female who we are treating for neck pain with cervical radiculopathy symptoms. She has done well with cervical epidural steroid injections in the past. Most of her pain is in her neck radiating to the left arm. We will plan on a cervical epidural steroid injection today to see if this will help with her pain symptoms. Procedure Details:: Cervical epidural steroid injection under fluoroscopy Informed consent was obtained and the risks and benefits of the procedure was explained to the patient. The patient was taken to the procedure room placed prone on the procedure table. The neck was prepped using ChloraPrep. The skin and subcutaneous tissues were anesthetized using lidocaine. I placed a 18-gauge epidural needle into the C5-C6 interspace and advanced using [id number] to air and fluoroscopic guidance. After confirmation of needle placement in the epidural space with dye, I injected 3 mL's lidocaine 1.5% and Depo-Medrol 80 mg. The patient tolerated the procedure well with no complications. Plan and Disposition:: We will follow-up with her in 2 weeks. Will reevaluate symptoms at that time. We have also talked her about intrathecal therapy and spinal cord stimulation she is still considering both options and may pursue one of these in the future.
[2018-09-30 09:49] VITALS: BP 129/63; PULSE 57; RESP 18; O2SAT 98
== END 2018-09-30 09:51 | disposition home or self-care (01) ==
LOC: SC.PAINP 08:19
PROVIDERS: PCP Family Medicine; Visit Provider Anesthesiology
DX: M50.10 Cervical disc disorder with radiculopathy, unspecified cervical region (principal)
CPT/HCPCS: 62321; J1040; Q9966

== ENCOUNTER → 2018-11-01 08:38 | Outpatient (POV) | payer MEDICARE, MEDICAID, SELFPAY ==
[2018-11-01 08:57] VITALS: BP 148/67; PULSE 75; RESP 18; O2SAT 98; BMI 23.0
--- NOTE | 2018-11-01 09:07 | HMH.PAINSOAP ---
[facility] Pain Management SOAP Note Subjective:: Patient is a 67-year-old white female who presents today for follow-up. We are treating her for neck pain with cervical radiculopathy symptoms. Patient had a cervical epidural at C5 and C6. Patient says that she got 2 days of relief, with about 80% effectiveness. Patient rates her pain an 8 out of 10 today. We currently prescribe her [place] 5 mg 1 p.o. daily. She says that the medication does help her. The patient would like to have a another epidural to see if it can help with her neck pain. She says that the pain starts in her neck radiates to her head and shoulders. She says that she has difficulty watching TV due to pain. Patient is continuing a home stretching program and anti-inflammatories. Review of Systems General: No recent weight changes, no fever, no sleep disturbances Respiratory: No cough, no shortness of air, no recurring pulmonary infections Cardiovascular/peripheral vascular: No chest pain, no palpitations, no edema, no shortness of breath Gastrointestinal: No new onset incontinence, normal bowel movements reported Genitourinary: No new onset incontinence Musculoskeletal: Neck pain Psychiatric: Normal mood/affect Neurological: [Denies weakness in extremities], [denies balance issues] Objective:: Physical exam General: Alert and oriented x3, no acute distress, pleasant and cooperative, [on room air] Lungs: Respirations even and unlabored, symmetrical chest expansion Eyes: PERRL Musculoskeletal: Flexion and extension of cervical spine somewhat guarded secondary to pain, deep tendon reflexes normal, strength in upper and lower extremities [5/5], normal gait Neurological: Speech clear, extractor loader and unloader equal, no gross sensory deficit Assessment:: Degenerative disc disease cervical spine with cervical radiculopathy and degenerative disc disease lumbar spine with lumbar spondylosis Plan:: We will refill the patient's [place] 5 mg 1 p.o. daily. We will also schedule the patient for a cervical epidural at C5 and C6. Patient is not on any anticoagulation therapy. We will see the patient back after her procedure and reassess her symptoms at that time. She has been instructed to call the office if she has any concerns prior to her next appointment. Dr. Navarro has reviewed this note and agrees with this plan of care. This note was dictated using voice recognition software and make contain errors or omissions.
== END ==
PROVIDERS: PCP Family Medicine; Visit Provider Clinical Nurse Specialist Family Health
DX: M50.10 Cervical disc disorder with radiculopathy, unspecified cervical region (principal); M51.36 Other intervertebral disc degeneration, lumbar region; M47.896 Other spondylosis, lumbar region
CPT/HCPCS: 99212

== ENCOUNTER → 2018-12-19 08:26 | Outpatient (POV) | payer MEDICARE, MEDICAID, SELFPAY ==
[2018-12-19 09:07] VITALS: BP 107/62; PULSE 80; RESP 18; O2SAT 98; BMI 23.0
--- NOTE | 2018-12-19 09:36 | P.CONS_ITS ---
[facility] Pain Management SOAP Note Subjective:: Patient is a pleasant 68-year-old white female who presents today for follow-up after cervical epidural steroid injection. She rates her pain a 6 out of 10 however she states it typically a 3 out of 10. She is also here for medication refill she is on [place] 5 mg 1 p.o. daily. Patient wanted to discuss an intrathecal pain pump today. Upon discussion it was determined that she potentially is not a candidate due to her clonazepam use. Patient states that she cannot wean off of her clonazepam. Patient and I briefly discussed stimulator she may be interested in this I will give her information in regards to it. Patient's insurance is changing so at this time we are unable to do anything. ROS General: no recent weight change, no fever, no sleep disturbances Respiratory: no cough, no shortness of air, no recurring pulmonary infections Cardiovascular/Peripheral Vascular: No chest pain, No palpitations, no edema, no shortness of breath. Gastrointestinal: no incontinence, normal bowel movements reported Genitourinary: no incontinence Musculoskeletal: Neck pain, arm pain, back pain, leg pain Psychiatric: normal mood/ affect, [denies depression], [denies anxiety] Neurological: [denies weakness in extremities], [denies balance issues] Objective:: Physical Exam General: Alert and oriented x3, no acute distress, pleasant and cooperative, [on room air] Lungs: Resps E/U, Symmetrical chest expansion, Eyes: PERRL Musculoskeletal: Flexion and extension of cervical and lumbar spine somewhat guarded secondary to pain, deep tendon reflexes normal, strength in upper and lower extremities [5/5], antalgic gait noted Neurological: speech clear, soundscriber mechanic equal, no gross sensory deficits Assessment:: Degenerative disc disease cervical and lumbar spine with radiculopathy Plan:: We will refill her [place] 5 mg 1 p.o. daily give her 2 months with medication. We will see her back in 2 months reassess her symptoms at that time I will give her information in regards to a neurostimulator at this time she is not an intrathecal pain pump candidate and we discussed this. Patient has been prescribed a controlled substance after being counseled on the medication, medication safety, and possible side effects. WILLIAM report has been obtained and reviewed prior to prescription and found to be appropriate. Opioid contract was reviewed and signed by the patient, and that they have agreed to all of the terms set forth by our compliance program. Dr. Navarro has reviewed this note and agrees with this plan of care. This note was dictated using voice recognition software and may contain errors or omissions Pain Management Hx Components *Have you ever received a pneumonia vaccine?: Yes *Have you received a flu vaccine this season?: Yes - *Social History *Occupational Status:: other *Travel in the last 8 weeks: None
== END ==
PROVIDERS: PCP Family Medicine; Visit Provider Clinical Nurse Specialist Family Health
DX: M50.10 Cervical disc disorder with radiculopathy, unspecified cervical region (principal)
CPT/HCPCS: 99212

== ENCOUNTER → 2019-02-13 08:12 | Outpatient (POV) | payer MEDICARE, MEDICAID, SELFPAY ==
[2019-02-13 09:00] VITALS: BP 126/61; PULSE 71; RESP 18; O2SAT 98; BMI 22.8
--- NOTE | 2019-02-13 09:12 | HMH.PAINSOAP ---
[facility] Pain Management SOAP Note Subjective:: Patient is a pleasant 68-year-old white female who presents today for follow-up. Patient overall doing well rating her pain a 7 out of 10. Its up due to weather. She is currently on [place] 5 mg 1 p.o. daily. Patient and I discussed in neurostimulator at the last visit and she is interested in may be pursuing this in the new year. Patient states she is having some swelling in her hands and legs however she feels that it is related to other things. She denies side effects or medication. William #[id number] reviewed and appropriate ROS General: no recent weight change, no fever, no sleep disturbances Respiratory: no cough, no shortness of air, no recurring pulmonary infections Cardiovascular/Peripheral Vascular: No chest pain, No palpitations, no edema, no shortness of breath. Gastrointestinal: no new onset incontinence, normal bowel movements reported Genitourinary: no new onset incontinence Musculoskeletal: Neck pain, arm pain, back pain, leg pain Psychiatric: normal mood/ affect Neurological: [denies new onset weakness in extremities], [denies new onset balance issues] Objective:: Physical Exam General: Alert and oriented x3, no acute distress, pleasant and cooperative, [on room air] Lungs: Resps E/U, Symmetrical chest expansion, Eyes: PERRL Musculoskeletal: Flexion and extension of cervical and lumbar spine somewhat guarded secondary to pain, deep tendon reflexes normal, strength in upper and lower extremities [5/5], [abnormal gait noted] Neurological: speech clear, squad boss equal, no gross sensory deficits Assessment:: Degenerative disc disease cervical spine with cervical radiculopathy and degenerative disc disease of lumbar spine with lumbar radiculopathy Plan:: We will refill the patient's [place] 5 mg 1 p.o. daily give her 2 months with medication and we will see her back in April. We will rediscuss a neurostimulator. I do not believe she would could be a good intrathecal pain pump candidate due to her dependence on clonazepam. Patient states she be unable to wean this off prior to a intrathecal pain pump. Patient has been prescribed a controlled substance after being counseled on the medication, medication safety, and possible side effects. WILLIAM report has been obtained and reviewed prior to prescription and found to be appropriate. Opioid contract was reviewed and signed by the patient, and that they have agreed to all of the terms set forth by our compliance program. Dr. Navarro has reviewed this note and agrees with this plan of care. This note was dictated using voice recognition software and may contain errors or omissions [facility] History I have reviewed the patient's past medical history: Yes Medical History: Reports:: Diabetes Mellitus Type 2, Hyperlipidemia, Hypertension Denies:: Cancer, Diabetes Mellitus Type 1, Internal Pacemaker, MRSA, Seizures *Have you ever received a pneumonia vaccine?: Yes *Have you received a flu vaccine this season?: Yes Other Medical History: Reports: Cataracts. Denies: Blood Transfusion Reaction Other Surgeries: Yes: Cholecystectomy. No: Pacemaker Amputation: No Fractures: No - *Social History Smoking Status: Never smoker Alcohol Intake: never *Occupational Status:: other Housing: house Household Members: none *Travel in the last 8 weeks: None Family Hx:: Hyperlipidemia, Hypertension
--- NOTE | 2019-02-13 09:15 | P.CONS_ITS ---
[facility] Pain Management SOAP Note Subjective:: Patient is a pleasant 68-year-old white female who presents today for follow-up. Patient overall doing well rating her pain a 7 out of 10. Its up due to weather. She is currently on [place] 5 mg 1 p.o. daily. Patient and I discussed in neurostimulator at the last visit and she is interested in may be pursuing this in the new year. Patient states she is having some swelling in her hands and legs however she feels that it is related to other things. She denies side effects or medication. William #[id number] reviewed and appropriate ROS General: no recent weight change, no fever, no sleep disturbances Respiratory: no cough, no shortness of air, no recurring pulmonary infections Cardiovascular/Peripheral Vascular: No chest pain, No palpitations, no edema, no shortness of breath. Gastrointestinal: no new onset incontinence, normal bowel movements reported Genitourinary: no new onset incontinence Musculoskeletal: Neck pain, arm pain, back pain, leg pain Psychiatric: normal mood/ affect Neurological: [denies new onset weakness in extremities], [denies new onset balance issues] Objective:: Physical Exam General: Alert and oriented x3, no acute distress, pleasant and cooperative, [on room air] Lungs: Resps E/U, Symmetrical chest expansion, Eyes: PERRL Musculoskeletal: Flexion and extension of cervical and lumbar spine somewhat guarded secondary to pain, deep tendon reflexes normal, strength in upper and lower extremities [5/5], [abnormal gait noted] Neurological: speech clear, male infertility specialist equal, no gross sensory deficits Assessment:: Degenerative disc disease cervical spine with cervical radiculopathy and degenerative disc disease of lumbar spine with lumbar radiculopathy Plan:: We will refill the patient's [place] 5 mg 1 p.o. daily give her 2 months with medication and we will see her back in April. We will rediscuss a neurostimulator. I do not believe she would could be a good intrathecal pain pump candidate due to her dependence on clonazepam. Patient states she be unable to wean this off prior to a intrathecal pain pump. Patient has been prescribed a controlled substance after being counseled on the medication, medication safety, and possible side effects. WILLIAM report has been obtained and reviewed prior to prescription and found to be appropriate. Opioid contract was reviewed and signed by the patient, and that they have agreed to all of the terms set forth by our compliance program. Dr. Navarro has reviewed this note and agrees with this plan of care. This note was dictated using voice recognition software and may contain errors or omissions [facility] History I have reviewed the patient's past medical history: Yes Medical History: Reports:: Diabetes Mellitus Type 2, Hyperlipidemia, Hypertension Denies:: Cancer, Diabetes Mellitus Type 1, Internal Pacemaker, MRSA, Seizures *Have you ever received a pneumonia vaccine?: Yes *Have you received a flu vaccine this season?: Yes Other Medical History: Reports: Cataracts. Denies: Blood Transfusion Reaction Other Surgeries: Yes: Cholecystectomy. No: Pacemaker Amputation: No Fractures: No - *Social History Smoking Status: Never smoker Alcohol Intake: never *Occupational Status:: other Housing: house Household Members: none *Travel in the last 8 weeks: None Family Hx:: Hyperlipidemia, Hypertension
[2019-02-13 16:58] LABS: Amphetamine/Metha Screen,Urine Negative ng/mL (<1000); Barbiturates Screen,Urine Negative ng/mL (<200); Benzodiazepines Screen,Urine Negative ng/mL (<200); Cannabinoid Screen,Urine Negative ng/mL (<50); Cocaine Screen,Urine Negative ng/mL (<300); Methadone Screen,Urine Negative ng/mL (<300); Opiate Screen,Urine Positive ng/mL (<300); Phencyclidine Screen,Urine Negative ng/mL (<25)
[2019-02-19 20:11] LABS: Codeine Negative (Cutoff=100); Hydrocodone Positive (.); Hydromorphone Negative (Cutoff=100); Morphine Negative (Cutoff=100)
[2019-02-20 06:16] LABS: Opiates Positive (.)
== END ==
PROVIDERS: PCP Family Medicine; Visit Provider Clinical Nurse Specialist Family Health
DX: M50.10 Cervical disc disorder with radiculopathy, unspecified cervical region (principal); M51.16 Intervertebral disc disorders with radiculopathy, lumbar region; Z79.899 Other long term (current) drug therapy
CPT/HCPCS: 80305; 80361; 80365; 99212; G0480

== ENCOUNTER → 2019-04-17 08:12 | Outpatient (POV) | payer MEDICARE, OTHER, SELFPAY ==
[2019-04-17 09:03] VITALS: BP 118/53; PULSE 85; RESP 18; O2SAT 98; BMI 22.4
--- NOTE | 2019-04-17 09:04 | HMH.PAINSOAP ---
[facility] Pain Management SOAP Note Subjective:: Patient is a pleasant 68-year-old white female who presents today for follow-up. Overall she is doing all right. Patient rates her pain an 8 out of 10. Patient is currently on [place] 5 mg 1 p.o. daily. We discussed neurostimulator at her last visit she like to move forward with this I discussed in great detail the trialing process along with the permanent implant and the need for an evaluation psychologically. I also briefly discussed an intrathecal pain pump however she states I do not trust the pain pump . I do not think that she would be a great pain pump candidate due to her use of clonazepam. Patient is currently on [place] 5 mg 1 p.o. daily she states it does help and it is beneficial. William #[id number] reviewed and appropriate. She states she got cyclobenzaprine from her family doctor and had an adverse reaction to it causing a fall which is increased her pain. Most of her pain is in her neck. ROS General: no recent weight change, no fever, no sleep disturbances Respiratory: no cough, no shortness of air, no recurring pulmonary infections Cardiovascular/Peripheral Vascular: No chest pain, No palpitations, no edema, no shortness of breath. Gastrointestinal: no new onset incontinence, normal bowel movements reported Genitourinary: no new onset incontinence Musculoskeletal: Neck pain, back pain Psychiatric: normal mood/ affect Neurological: [denies new onset weakness in extremities], [denies new onset balance issues] Objective:: Physical Exam General: Alert and oriented x3, no acute distress, pleasant and cooperative, [on room air] Lungs: Resps E/U, Symmetrical chest expansion, Eyes: PERRL Musculoskeletal: Flexion and extension of cervical and lumbar spine somewhat guarded secondary to pain, deep tendon reflexes normal, strength in upper and lower extremities [5/5], slightly antalgic gait noted Neurological: speech clear, hospitality associate equal, no gross sensory deficits Assessment:: Degenerative disc disease cervical spine with cervical radiculopathy, degenerative disc disease lumbar spine with lumbar radiculopathy CRPS type II, diabetic neuropathy Plan:: We will send the patient for us a psychological evaluation to see if she is a appropriate stim candidate. If we do neurostimulator with her we will plan on a nonrechargeable battery. Patient does have autonomic changes in her left arm including color changes, swelling at times. We will refill her [place] 5 mg 1 p.o. daily give her 2 months worth of medication see her back in 2 months reassess her symptoms at that time she is been instructed to call the office if she has any issues prior to next appointment. Patient has been prescribed a controlled substance after being counseled on the medication, medication safety, and possible side effects. WILLIAM report has been obtained and reviewed prior to prescription and found to be appropriate. Opioid contract was reviewed and signed by the patient, and that they have agreed to all of the terms set forth by our compliance program. Dr. Navarro has reviewed this note and agrees with this plan of care. This note was dictated using voice recognition software and may contain errors or omissions [facility] History I have reviewed the patient's past medical history: Yes Medical History: Reports:: Diabetes Mellitus Type 2, Hyperlipidemia, Hypertension Denies:: Cancer, Diabetes Mellitus Type 1, Internal Pacemaker, MRSA, Seizures *Have you ever received a pneumonia vaccine?: Yes *Have you received a flu vaccine this season?: Yes Other Medical History: Reports: Cataracts. Denies: Blood Transfusion Reaction Other Surgeries: Yes: Cholecystectomy. No: Pacemaker Amputation: No Fractures: No - *Social History Smoking Status: Never smoker Alcohol Intake: never *Occupational Status:: other Housing: house Household Members: none *Travel in the last 8 weeks: None Family Hx:: Hyperlipidemia, Hypertension
== END ==
PROVIDERS: PCP Family Medicine; Visit Provider Clinical Nurse Specialist Family Health
DX: M50.10 Cervical disc disorder with radiculopathy, unspecified cervical region (principal); M51.16 Intervertebral disc disorders with radiculopathy, lumbar region; E11.40 Type 2 diabetes mellitus with diabetic neuropathy, unspecified
CPT/HCPCS: 99212

== ENCOUNTER → 2019-05-23 11:56 | Outpatient (POV) | payer MEDICARE, OTHER, SELFPAY ==
[2019-05-23 12:07] VITALS: BP 127/70; PULSE 63; RESP 18; O2SAT 99; BMI 22.3
--- NOTE | 2019-05-23 12:39 | HMH.PMPROC ---
- Procedure Date: 05/23/19 Time: 12:39 Anesthesiologist:: Fabiana Garzon APRN Complications:: None Pre-procedure Diagnosis:: Degenerative disc disease cervical spine with cervical radiculopathy symptoms and CRPS type II Post-procedure Diagnosis:: Same Indications for Procedure:: Patient is a pleasant 68-year-old white female who is been treated for neck pain for several years. Her worst pain is in her neck radiating to her left arm she is not a surgical candidate and has failed all conservative therapy including injections oral medications physical therapy. She is finishing out a neurostimulator trial. And has done extremely well she rates her pain a 0 out of 10 and she is had over 90% relief of her symptoms. Physical Exam General: Alert and oriented x3, no acute distress, pleasant and cooperative, [on room air] Lungs: Resps E/U, Symmetrical chest expansion, Eyes: PERRL Musculoskeletal: Flexion and extension of cervical spine somewhat guarded secondary to pain, deep tendon reflexes normal, strength in upper and lower extremities [5/5], normal gait noted Neurological: speech clear, hospitality services manager equal, no gross sensory deficits Procedure Details:: After informed consent was obtained the risk and benefits of the procedure were explained to the patient. Patient's vital signs were monitored with noninvasive blood pressure cuff and pulse oximeter. Patient's tape was removed on her back. The area in which her epidural leads entered was examined to ensure no redness or draining. Patient leads were then removed in sterile fashion. Patient then had Band-Aids placed over the puncture sites. Patient tolerated the procedure well. Plan and Disposition:: We will plan on a permanent implant for the patient given the efficacy of the trial. Patient's been instructed to call the office if she has any issues prior to her next appointment. She not on any anticoagulation therapy. I will follow-up with her after her implant reassess her symptoms at that time. Dr. Navarro has reviewed this note and agrees with this plan of care. This note was dictated using voice recognition software and may contain errors or omissions
--- NOTE | 2019-09-28 11:07 | PC.NURSE ---
TIZANIDINE 4MG TID WITH NO REFILLS CALLED INTO [facility] PER PROVIDER ORDER
== END ==
PROVIDERS: PCP Family Medicine; Visit Provider Clinical Nurse Specialist Family Health
DX: M50.10 Cervical disc disorder with radiculopathy, unspecified cervical region (principal); G56.42 Causalgia of left upper limb
CPT/HCPCS: 99212

== ENCOUNTER → 2019-08-08 14:26 | Outpatient (CLI) | payer MEDICARE, OTHER, SELFPAY | PROVIDERS: PCP Family Medicine; Visit Provider Nurse Practitioner Family | DX: R00.2 Palpitations (principal) | CPT/HCPCS: 93225; 93226 ==

== ENCOUNTER → 2019-08-28 12:15 | Outpatient (POV) | payer MEDICARE, OTHER, SELFPAY ==
--- NOTE | 2019-08-28 12:47 | P.CONS_ITS ---
[facility] Pain Management SOAP Note Subjective:: Patient is a 68-year-old white female who we are treating for pain secondary to degenerative disc disease cervical spine cervical radiculopathy CRPS type II and low back pain. Patient is awaiting a neuro stim implant. At this time she is currently on [place] 5 once a day. William #[id number] reviewed and appropriate. ROS General: no recent weight change, no fever, no sleep disturbances Respiratory: no cough, no shortness of air, no recurring pulmonary infections Cardiovascular/Peripheral Vascular: No chest pain, No palpitations, no edema, no shortness of breath. Gastrointestinal: no new onset incontinence, normal bowel movements reported Genitourinary: no new onset incontinence Musculoskeletal: Back pain, leg pain, neck pain, arm pain Psychiatric: normal mood/ affect, [denies depression], [denies anxiety] Neurological: [denies new onset weakness in extremities], [denies new onset bal ance issues] Objective:: Physical Exam General: Alert and oriented x3, no acute distress, pleasant and cooperative, [on room air] Lungs: Resps E/U, Symmetrical chest expansion, Eyes: PERRL Musculoskeletal: Flexion and extension of cervical and lumbar spine somewhat guarded secondary to pain, deep tendon reflexes normal, strength in upper and lower extremities [5/5], slightly antalgic gait noted Neurological: speech clear, isolation washer equal, no gross sensory deficits Assessment:: Degenerative disc disease cervical spine cervical radiculopathy, CRPS type II degenerative disc disease lumbar spine lumbar radiculopathy Plan:: We will continue her [place] 5 mg once daily while we are awaiting her neurostimulator implant. Dr. Navarro has reviewed this note and agrees with this plan of care. This note was dictated using voice recognition software and may contain errors or omissions Patient has been prescribed a controlled substance after being counseled on the medication, medication safety, and possible side effects. WILLIAM report has been obtained and reviewed prior to prescription and found to be appropriate. Opioid contract was reviewed and signed by the patient, and that they have agreed to all of the terms set forth by our compliance program. [facility] History I have reviewed the patient's past medical history: Yes Medical History: Reports:: Diabetes Mellitus Type 2, Hyperlipidemia, Hypertension Denies:: Cancer, Diabetes Mellitus Type 1, Internal Pacemaker, MRSA, Seizures *Have you ever received a pneumonia vaccine?: No *Have you received a flu vaccine this season?: Yes Other Medical History: Reports: Cataracts. Denies: Blood Transfusion Reaction Other Surgeries: Yes: Cholecystectomy. No: Pacemaker Amputation: No Fractures: No - *Social History Smoking Status: Former smoker #Yrs smoked (if former smoker): 10 Alcohol Intake: never Substance Use Type: denies use *Occupational Status:: other Housing: house Household Members: none *Travel in the last 8 weeks: None Family Hx:: Hyperlipidemia, Hypertension, Stroke
[2019-08-28 12:56] VITALS: BP 132/85; PULSE 82; RESP 18; TEMP 36.6; O2SAT 99; BMI 20.5
--- NOTE | 2019-08-28 13:55 | CA_ITS ---
APPROVED REPORT EXAM: Comprehensive 2D, Doppler, and color-flow Echocardiogram Class C Driver: Cari Keyes RVT Ht: 5 ft 1 in Wt: 118lbs BSA: 1.51 BP: 137/52 mmHg Indications: PALPS,BIGEMINY,ABN HOLTER,HX RHEUMATIC FEVER,HX MVP,DM,HLD,HTN,HX OF SMOKING 2D Dimensions LVOT 1.70 cm (M/F) 1.5-2.5 M-Mode Dimensions RVDd 2.58 cm (0.9-2.6) LVDd 4.25 cm (3.5-5.7) LVDs 2.94 cm (3.5-5.7) IVSd 0.80 cm (0.6-1.1) PWd 0.57 cm (0.6-1.1) EF (Teich) 58.80% FS 30.80% EDV (Teich) 80.80 mL ESV (Teich) 33.30 mL LV Diastology E/A Ratio 0.75 Mitral Valve MV A Velocity 89.00 (40-130 cm/s) Left Ventricle Left atrium is mildly enlarged, left ventricle is normal size, there is no concentric left ventricular hypertrophy, visually estimated ejection fraction 55% with no regional wall motion abnormality. Grade 1 diastolic dysfunction seen without tissue Doppler evidence of raise left atrial pressure. Right Ventricle Right atrium and right ventricular normal size and contractility. Aortic Valve Aortic valve is minimally thickened and fibrosed, there is no aortic stenosis or aortic insufficiency. Mitral Valve Mitral valve leaflets are minimally thickened, there is mild mitral regurgitation. Tricuspid Valve Tricuspid valve is grossly normal, there is mild tricuspid regurgitation. Tricuspid regurgitation jet velocity is inadequate for calculation of the right ventricular systolic pressure. Pulmonic Valve Pulmonic valve is poorly visualized. Great Vessels Aortic root is normal size. Pericardium No significant pericardial effusion noted. Conclusion 1. Mildly low left atrium, normal left ventricular size, visually estimated ejection fraction 55% with no regional wall motion abnormality, grade 1 diastolic dysfunction seen without tissue Doppler evidence of raise left atrial pressure. 2. Mild mitral and tricuspid regurgitation. 3. No significant pericardial effusion noted. Electronically signed by : Pramod Turner, 08/28/2019 21:39:29
== END ==
LOC: SC.PAIN 12:15 → RT 13:51
PROVIDERS: PCP Family Medicine; Visit Provider Clinical Nurse Specialist Family Health
DX: E78.5 Hyperlipidemia, unspecified (principal); I10 Essential (primary) hypertension; R00.2 Palpitations; Z01.810 Encounter for preprocedural cardiovascular examination; Z86.79 Personal history of other diseases of the circulatory system; Z87.891 Personal history of nicotine dependence
CPT/HCPCS: 93306; 99212

== ENCOUNTER → 2019-09-26 11:20 | Outpatient (CLI) | payer MEDICARE, OTHER, SELFPAY ==
[2019-09-26 12:09] LABS: Basophils % 0.7 % (0.1-2.0); Eosinophils # 0.3 K/mm3 (0.0-0.4); Eosinophils % 4.1 % (0.1-12.0); Hematocrit 38.8 % (37.0-47.0); Hemoglobin 12.6 g/dL (12.2-16.2); Lymphocytes # 2.1 K/mm3 (0.7-4.5); Mean Corpuscular HGB Conc 32.4 g/dL (31.8-35.4); Mean Corpuscular Hemoglobin 27.3 pg (27.0-31.2); Mean Corpuscular Volume 84.4 fl (81-99); Mean Platelet Volume 9.3 fl (7.4-10.4); Monocytes # 0.2 K/mm3 (0.1-1.0); Monocytes % 3.7 % (1.7-9.3); Neutrophils # 3.7 K/mm3 (1.8-7.8); Neutrophils % 58.4 % (37.0-80.0); Platelet Count 235 K/mm3 (142-424); Red Cell Distribution Width 13.7 % (11.5-17.5); White Blood Count 6.3 K/mm3 (4.8-10.8)
[2019-09-26 12:44] LABS: Chloride 99 mmol/L (98-107); Sodium 139 mmol/L (136-145)
[2019-09-26 12:45] LABS: Potassium 3.6 mmoL/L (3.5-5.1)
[2019-09-26 12:47] LABS: Blood Urea Nitrogen 14 mg/dl (7-17); Estimated Glomerular Filt Rate 62 ml/min (>60); GFR (African American) 75 ML/MIN (>60)
[2019-09-26 12:48] LABS: Anion Gap 11.6 mEq/L (5-15); Calcium 9.1 mg/dl (8.4-10.2); Carbon Dioxide 32 mmol/L (22.0-30.0); Glucose 195 mg/dl (74-100)
[2019-09-26 13:45] LABS: Coronavirus 19 IgG Antibody Negative (Negative); Coronavirus 19 IgM Antibody Negative (Negative)
== END ==
PROVIDERS: Visit Provider Anesthesiology
DX: Z01.818 Encounter for other preprocedural examination (principal); M50.10 Cervical disc disorder with radiculopathy, unspecified cervical region
CPT/HCPCS: 36415; 80048; 85025; 86328

== ENCOUNTER 2019-09-27 12:14 | Day surgery (SDC) | payer MEDICARE, OTHER, SELFPAY ==
[2019-09-25 15:06] VITALS: BMI 24.4
[2019-09-27 12:40] VITALS: BP 130/64; PULSE 51; RESP 18; TEMP 36.5; O2SAT 96
[2019-09-27 12:56] LABS: POC Glucose,Bedside 129 (70-110)
--- NOTE | 2019-09-27 13:00 | HMH.ANESCL ---
[facility] Anesthesia Checklist - Patient Identification Patient Identification: Arm Band - Structural Data Admitted From: Home Planned Operative Procedure/s: neurostimulator leads and generator placement Consent for Planned Operative Procedure(s) Verified: Yes Verified Documents: Surgical Consent, History and Physical - NPO Status Verified Time NPO: 00:00 - Additional verifications Anesthesia Reactions: No Hx Blood Transfusions: Yes Blood Transfusion Reaction: No - Airway Assessment C-Spine Mobility Assessed: Yes (mp2) TMJ Mobility Assessed: Yes Dentition: Edentulous - Neurological Assessment Level of Consciousness: Awake, Alert - Anesthesia Plan Anesthesia Risk discussed: Yes Anesthesia Plan: Verified ASA Class: III Anesthesia Type: MAC [facility] History I have reviewed the patient's past medical history: Yes Medical History: Reports:: Anxiety, Diabetes Mellitus Type 2, Gastroesophageal Reflux Disease(GERD), Hyperlipidemia, Hypertension Denies:: Cancer, Diabetes Mellitus Type 1, Internal Pacemaker, MRSA, Seizures *Have you ever received a pneumonia vaccine?: No *Have you received a flu vaccine this season?: Yes Other Medical History: Reports: Cataracts. Denies: Blood Transfusion Reaction Anesthesia experience/problems:: nac Laterality Cases: Bilateral: Cataract Other Surgeries: Yes: Cholecystectomy. No: Pacemaker Amputation: No Fractures: Yes (L knee) - *Social History Educational Level: Attended High School Smoking Status: Former smoker #Yrs smoked (if former smoker): 10 Alcohol Intake: never Substance Use Type: denies use *Occupational Status:: disabled Housing: house Household Members: none *Travel in the last 8 weeks: None Family Hx:: No significant family history
--- NOTE | 2019-09-27 13:16 | HMH.PMCON ---
Assessment and Plan - Assessment and plan all Dx Assessment and Plan for all problems:: Impression-degenerative disc disease of the lumbar spine with radiculopathy Plan-placement of pain stimulator generator and leads today HPI - Data of Consult Patient: new to practice Consult date: 09/27/19 Requesting Physician: Beni Navarro MD Primary Care Provider: Robert Lara MD - Consult Narrative Reason for consult: Back pain History of present illness: Ms. Canales is a 68 year old female with degenerative disc disease of the lumbar spine with radiculopathy. She has had unsuccessful treatment with pain medications therapy etc. She had a pain stimulator trial with great success and she comes in for placement of a stimulator system CC: Beni Navarro MD [facility] History Medical History: Reports:: Anxiety, Diabetes Mellitus Type 2, Gastroesophageal Reflux Disease(GERD), Hyperlipidemia, Hypertension Denies:: Cancer, Diabetes Mellitus Type 1, Internal Pacemaker, MRSA, Seizures *Have you ever received a pneumonia vaccine?: No *Have you received a flu vaccine this season?: Yes Other Medical History: Reports: Cataracts. Denies: Blood Transfusion Reaction Comment:: Illnesses-hypertension, hyperlipidemia, back pain, mitral valve prolapse, GERD, anxiety and depression, diabetes mellitus Anesthesia experience/problems:: nac Laterality Cases: Bilateral: Cataract Other Surgeries: Yes: Cholecystectomy. No: Pacemaker Amputation: No Fractures: Yes (L knee) Comment: Operations-cataract surgery, cholecystectomy, bladder surgery - *Social History Educational Level: Attended High School Smoking Status: Former smoker #Yrs smoked (if former smoker): 10 Alcohol Intake: never Substance Use Type: denies use *Occupational Status:: disabled Housing: house Household Members: none *Travel in the last 8 weeks: None - Psychiatric History Pschychiatric History:: Reports:: Anxiety Family Hx:: No significant family history Review of Systems - Review of Systems Review of systems:: pertinent systems reviewed and negative unless documented below Meds Home Medications Medication Instructions Recorded Confirmed Type Loratadine [Claritin 10mg 10 mg PO DAILY 07/02/17 09/27/19 History Tablet] Esomeprazole Magnesium [Nexium] 5 mg PO DAILY 11/18/18 09/27/19 History Metformin HCl [Metformin HCl ER] 500 mg PO BID 11/18/18 09/27/19 History clonazePAM [Clonazepam] 1 mg PO TID 11/18/18 09/27/19 History Ibuprofen/Famotidine [Duexis 1 tab PO TID 05/19/19 09/27/19 History 800-26.6 mg Tablet] atorvastatin 20 mg tablet 40 mg PO HS tab 08/28/19 09/27/19 History cholecalciferol (vitamin D3) 25 25 mcg PO DAILY 08/28/19 09/27/19 History mcg (1,000 unit) capsule hydrochlorothiazide 25 mg tablet 25 mg PO DAILY tab 08/28/19 09/27/19 History paroxetine HCl 37.5 mg 37.5 mg PO DAILY tab 08/28/19 09/27/19 History tablet,extended release 24 hr Hydrocod/Acet 5/325 mg [Robbins 1 tab PO DAILY 09/25/19 09/27/19 History 5/325mg tablet] Losartan Potassium [Cozaar 50mg 50 mg PO DAILY 09/25/19 09/27/19 History Tablets] bisoproloL fumarate [Bisoprolol 5 mg PO DAILY 09/25/19 09/27/19 History Fumarate] Allergies Allergy/AdvReac Type Severity Reaction Status Date / Time pregabalin [From Lyrica] Allergy Severe swelling Verified 09/27/19 12:36 in face gabapentin Allergy Intermediate NA-HALLUCIN Verified 09/27/19 12:36 ATIONS Objective Vital signs: Temp Pulse Resp BP Pulse Ox 97.7 F 51 L 18 130/64 96 09/27/19 12:40 09/27/19 12:40 09/27/19 12:40 09/27/19 12:40 09/27/19 12:40 no acute distress - *Routine Respiratory Exam Present: CTA bilaterally - *Routine Cardiovascular Exam Present: RRR - *Routine Abdominal Exam Present: soft, normoactive bowel sounds. Absent: tenderness - *Routine Extremities Exam Absent: cyanosis, clubbing, edema
--- NOTE | 2019-09-27 13:35 | HMH.OPNOTE ---
Date of procedure: 09/27/19 Pre-op Diagnosis:: Degenerative disc disease of cervical spine with cervical radiculopathy symptoms Post-op Diagnosis:: Same Procedure performed:: Permanent placement spinal cord stimulator with epidural lead placement x2 in the cervical region Surgeon:: Beni Navarro MD LASER ENGRAVER:: Robert Cortés Anesthesia: MAC Estimated blood loss (mL): 5 Clinical Note:: This patient is a pleasant 68-year-old white female who we have been treating for neck pain with cervical radiculopathy symptoms as well as low back pain with lumbar radiculopathy symptoms. She did very well with her spinal cord stimulator trial with 80 to 90% relief in her pain symptoms. Her leads were at C3 C4-C5-C6 bilaterally. She has had a successful psychological evaluation. She presents for permanent placement spinal cord stimulator today. Operative findings:: None Operative note:: Informed consent was obtained the risk and benefits of the procedure were explained to the patient. The patient was taken to the operating room placed prone on the procedure table. She was prepped and draped in sterile fashion. C-arm fluoroscopy was used to view the lumbar spine. The skin and subcutaneous tissues were anesthetized using lidocaine. A 17-gauge epidural needle was inserted and advanced into the L2-L3 interspace. After confirmation of needle placement in the epidural space stimulating lead was inserted and advanced very easily to the C3 C4-C5-C6 vertebral bodies. Lead placement was checked in AP and lateral views. After this a second needle was then inserted and advanced again into the L2-L3 interspace. Again after confirmation of needle placement in the epidural space a second stimulating lead was inserted and advanced adjacent to the first stimulator lead to the C4-C5-C6 vertebral bodies. The top of one lead was at the inferior aspect of the C3 vertebral body. Top of the second lead was at the superior aspect of the C4 vertebral body. Again lead placement was checked in AP and lateral views. The stylette and needles were removed. The leads were secured to the fascia with anchoring devices and 2-0 Prolene. The leads were then tunneled to the generator pocket created by Dr. Keith. I attached the leads to the generator. Placed the generator in the pocket. Impedances were checked and found to be okay. Both incisions were then closed with 2-0 Vicryl followed by 4-0 nylon. The incisions were previously irrigated with bacitracin solution. A wound VAC was placed over both incisions. The patient was placed in an abdominal binder and taken recovery in stable condition. Patient tolerated the procedure well with no complications. Patient was given a back brace to help with stability of the lumbar spine and decreasing pain symptoms. Patient was discharged home neurologically intact with good relief of pain symptoms. Plan and disposition: We will follow-up with this patient in 1 week for reprogramming and wound check. We will follow-up in 2 weeks for suture removal. If she has any problems or questions with the stimulator she is to call us in the pain clinic. Condition: stable Disposition: PACU Complications:: None
--- NOTE | 2019-09-27 14:44 | P.OP_ITS ---
Date of procedure: 09/27/19 Pre-op Diagnosis:: Degenerative disc disease of the cervical spine with radiculopathy Post-op Diagnosis:: Same Procedure performed:: Placement of pain stimulator leads and generator Surgeon:: Osbaldo Keith MD FINISHING MACHINE OPERATOR:: Micah Engel, Robert Cortés, Too Miller, Antolin Gonsalez, Other Anesthesia: MAC Estimated blood loss (mL): 5 Operative findings:: Not applicable Operative note:: Patient was placed prone on the operating table and her back and flank regions were prepped and draped in sterile fashion. Once adequate IV sedation was obtained by anesthesia and local anesthesia utilizing 1% Xylocaine with epinephrine a paraspinal incision was made by Dr. Nassar which 2 epidural leads were placed in the epidural space in the cervical region where he desired to place them. Then fixed the paraspinal fascia with fixation devices and 2-0 Prolene sutures. A incision was made just lateral to the paraspinal incision under which is made a pocket for placement of the generator. Both pockets irrigated with antibiotic solution. The leads were passed from the paraspinal incision to the pocket incision as a tunneling device. Leads connected generator which was placed in the pocket. System noted to be functioning properly. Subcutaneous tissues closed with running stitches of 2-0 Vicryl. Skin was then closed with interrupted stitches of 4-0 nylon. Wound VAC dressing and a binder applied to the wound. The patient tolerated the procedure well was taken to the recovery room in stable condition. Upon recovery the patient be discharged home with follow-up 1 week for removal of the wound VAC dressings in 2 weeks remove the sutures. Antibiotic x1 week per protocol. The patient ananda ated the procedure well Condition: stable Disposition: PACU Complications:: None
[2019-09-27 14:56] VITALS: BP 124/55; PULSE 57; RESP 18; TEMP 36.6; O2SAT 98
[2019-09-27 15:06] VITALS: BP 151/81; PULSE 66; RESP 18; TEMP 36.8; O2SAT 98
[2019-09-27 15:16] VITALS: BP 137/83; PULSE 59; RESP 16; TEMP 36.8; O2SAT 98
[2019-09-27 15:26] VITALS: BP 137/72; PULSE 79; RESP 16; TEMP 36.8; O2SAT 98
[2019-09-27 15:45] VITALS: BP 127/77; PULSE 78; RESP 16; TEMP 36.8; O2SAT 100
== END 2019-09-27 15:46 | disposition home or self-care (01) ==
LOC: OR 12:16
PROVIDERS: PCP Family Medicine; Visit Provider Anesthesiology
PROC: (CPT 63650; principal; 2019-09-27 14:00)
DX: M50.10 Cervical disc disorder with radiculopathy, unspecified cervical region (principal); I10 Essential (primary) hypertension; F32.9 Major depressive disorder, single episode, unspecified; K21.9 Gastro-esophageal reflux disease without esophagitis; Z88.6 Allergy status to analgesic agent; E11.9 Type 2 diabetes mellitus without complications; E78.5 Hyperlipidemia, unspecified; Z79.899 Other long term (current) drug therapy
CPT/HCPCS: 63650 ×2; 63685; 82962; 96374; C1778; C1820; J3370

== ENCOUNTER → 2019-10-05 12:19 | Outpatient (POV) | payer MEDICARE, OTHER, SELFPAY ==
[2019-10-05 12:30] VITALS: BP 135/85; PULSE 88; RESP 18; O2SAT 99; BMI 23.4
--- NOTE | 2019-10-05 13:11 | HMH.PAINSOAP ---
[facility] Pain Management SOAP Note Subjective:: Patient is a 68-year-old white female who presents today for follow-up after placement of spinal cord stimulator. Patient is somewhat confused concerning her stimulator today. Patient says that she was not aware she had anything implanted. She is complaining today of severe itching. She does have petechiae noted to her right and left lower quadrant areas of her abdomen as well as under her bilateral breasts. She says that she has been itching since having to wear the brace. Patient says she is not going to wear the brace any longer. She does rate her pain a 0 out of 10 today. She is meeting with a spinal cord stimulator footwear sales representative with [employer] today. Overall, she is doing well. She is being treated for degenerative disc disease cervical spine with cervical radiculopathy symptoms Objective:: Physical exam General: Alert and oriented x3, no acute distress, pleasant and cooperative, [on room air] Lungs: Respirations even and unlabored, symmetrical chest expansion Eyes: PERRL Musculoskeletal: Flexion and extension of cervical spine somewhat guarded secondary to pain, deep tendon reflexes normal, strength in upper and lower extremities [5/5], normal gait noted Neurological: Speech clear, clinical support nurse equal, no gross sensory deficit Assessment:: Degenerative disc disease cervical spine with cervical radiculopathy symptoms Plan:: Overall the patient is doing well with her pain with the stimulator. She is somewhat confused as stated earlier concerning the stimulator. The [employer] footwear sales representative did discuss reprogramming with the patient today. He has advised the patient to bring a family member to her next visit so that he can discuss reprogramming and charging of the stimulator at the next visit. The patient did not seem to be able to retain the education given to her by the footwear sales representative today. We will plan to see her back in 2 weeks for suture removal. Her incision is well approximated, no redness, no drainage, no edema noted to the site. Her sutures are intact. I did advise the patient she could use some Benadryl cream to the areas that she is having pruritus patient has been advised to contact clinic if she has any concerns for next appointment. The patient and I specifically discussed risk factors for COVID19. These risks include, but are not limited to age greater than 60, heart or lung disease, diabetes, immunosuppression, and travel. We also discussed NSAIDs may worsen COVID19 infection or symptoms. Patient should not use NSAIDs to treat COVID19 signs or symptoms. Patient was also informed that any type of corticosteroid of any form (oral or injection) will decrease the patient's immune system response and may increase the likelihood of COVID19 [address] symptoms[address] Navarro has reviewed this note and agrees with this plan of care. This note was dictated using voice recognition software and make contain errors or omissions. [facility] History I have reviewed the patient's past medical history: Yes Medical History: Reports:: Anxiety, Diabetes Mellitus Type 2, Gastroesophageal Reflux Disease(GERD), Hyperlipidemia, Hypertension Denies:: Cancer, Diabetes Mellitus Type 1, Internal Pacemaker, MRSA, Seizures *Have you ever received a pneumonia vaccine?: Yes *Have you received a flu vaccine this season?: Yes Other Medical History: Reports: Cataracts. Denies: Blood Transfusion Reaction Other Surgeries: Yes: Cholecystectomy. No: Pacemaker Amputation: No Fractures: Yes (L knee) - *Social History Smoking Status: Former smoker #Yrs smoked (if former smoker): 10 Alcohol Intake: never Substance Use Type: denies use *Occupational Status:: other Housing: house Household Members: none *Travel in the last 8 weeks: None - Psychiatric History Pschychiatric History:: Reports:: Anxiety Family Hx:: No significant family history
== END ==
PROVIDERS: PCP Family Medicine; Visit Provider Clinical Nurse Specialist Family Health
DX: M05.10 Rheumatoid lung disease with rheumatoid arthritis of unspecified site (principal)
CPT/HCPCS: 99212

== ENCOUNTER → 2019-10-19 12:15 | Outpatient (POV) | payer MEDICARE, OTHER, SELFPAY ==
[2019-10-19 13:05] VITALS: BP 135/88; PULSE 88; RESP 18; O2SAT 98; BMI 22.3
--- NOTE | 2019-10-19 13:09 | HMH.PAINSOAP ---
[facility] Pain Management SOAP Note Subjective:: Patient is a pleasant 69-year-old white female who presents today for follow-up after placement of spinal cord stimulator. She is being treated for low back pain with lumbar radiculopathy symptoms. Patient says she is doing well overall with her spinal cord stimulator. She will have her sutures removed today. She would like to speak with the [employer] stimulator goodwill representative for possible reprogramming today. She does rate her pain is 8 out of 10. Patient says she also takes Currie 5 mg 1 tablet p.o. daily. She denies any side effects to the medication. She does need a refill on her medicine today. Her Jordan #[id number] has been reviewed and is appropriate. Her morphine equivalent is 5. Her urine drug screens have been appropriate. Overall the patient is doing well. Review of Systems General: No recent weight changes, no fever, no sleep disturbances Respiratory: No cough, no shortness of air, no recurring pulmonary infections Cardiovascular/peripheral vascular: No chest pain, no palpitations, no edema, no shortness of breath Gastrointestinal: No new onset incontinence, normal bowel movements reported Genitourinary: No new onset incontinence Musculoskeletal: Back pain Psychiatric: Normal mood/affect Neurological: [Denies weakness in extremities], [denies balance issues] Objective:: Physical exam General: Alert and oriented x3, no acute distress, pleasant and cooperative, [on room air] Lungs: Respirations even and unlabored, symmetrical chest expansion Eyes: PERRL Musculoskeletal: Flexion and extension of lumbar spine somewhat guarded secondary to pain, deep tendon reflexes normal, strength in upper and lower extremities [5/5], [abnormal gait noted] Neurological: Speech clear, ship painter helper equal, no gross sensory deficit Assessment:: Degenerative disc disease lumbar spine with lumbar radiculopathy symptoms Plan:: The patient's incision is well approximated, no redness, no drainage, no edema is noted to the site. Her sutures were removed today. She did undergo reprogramming today. We will refill her Currie 5 mg 1 tablet p.o. daily. We will give HER-2 months worth of medication and she can waste picker the third month in the interim. Patient has been instructed to contact clinic if she has any concerns before next appointment. The patient and I specifically discussed risk factors for COVID19. These risks include, but are not limited to age greater than 60, heart or lung disease, diabetes, immunosuppression, and travel. We also discussed NSAIDs may worsen COVID19 infection or symptoms. Patient should not use NSAIDs to treat COVID19 signs or symptoms. Patient was also informed that any type of corticosteroid of any form (oral or injection) will decrease the patient's immune system response and may increase the likelihood of COVID19 [address] Navarro has reviewed this note and agrees with this plan of care. This note was dictated using voice recognition software and make contain errors or omissions. [facility] History I have reviewed the patient's past medical history: Yes Medical History: Reports:: Anxiety, Diabetes Mellitus Type 2, Gastroesophageal Reflux Disease(GERD), Hyperlipidemia, Hypertension Denies:: Cancer, Diabetes Mellitus Type 1, Internal Pacemaker, MRSA, Seizures *Have you ever received a pneumonia vaccine?: Yes *Have you received a flu vaccine this season?: Yes Other Medical History: Reports: Cataracts. Denies: Blood Transfusion Reaction Other Surgeries: Yes: Cholecystectomy. No: Pacemaker Amputation: No Fractures: Yes (L knee) - *Social History Smoking Status: Former smoker #Yrs smoked (if former smoker): 10 Alcohol Intake: never Substance Use Type: denies use *Occupational Status:: other Housing: house Household Members: none *Travel in the last 8 weeks: None - Psychiatric History Pschychiatric History:: Reports:: Anxiety Family Hx:: No significant
== END ==
PROVIDERS: PCP Family Medicine; Visit Provider Clinical Nurse Specialist Family Health
DX: M51.16 Intervertebral disc disorders with radiculopathy, lumbar region (principal)
CPT/HCPCS: 99212

== ENCOUNTER → 2019-10-26 12:54 | Outpatient (POV) | payer MEDICARE, OTHER, SELFPAY ==
[2019-10-26 13:26] VITALS: BP 132/88; PULSE 62; RESP 18; O2SAT 98; BMI 23.0
--- NOTE | 2019-10-26 13:32 | HMH.PAINSOAP ---
[facility] Pain Management SOAP Note Subjective:: Patient is a 69-year-old white female who presents today for follow-up after placement of spinal cord stimulator. She has been treated for low back pain with lumbar radiculopathy symptoms. Patient is doing well with her pain overall. She rates her pain a 0 out of 10. She is complaining, however, of pruritis. She complains of continued itching that is worse around her incision site as well as in her vaginal area. Says she has had continued itching. She does not complain of itching at any other areas. She does have some redness noted around her incision site, however, she says it is secondary to frequent scratching of the area. Review of Systems General: No recent weight changes, no fever, no sleep disturbances Respiratory: No cough, no shortness of air, no recurring pulmonary infections Cardiovascular/peripheral vascular: No chest pain, no palpitations, no edema, no shortness of breath Gastrointestinal: No new onset incontinence, normal bowel movements reported Genitourinary: No new onset incontinence Musculoskeletal: Intermittent low back pain Psychiatric: Normal mood/affect Neurological: [Denies weakness in extremities], [denies balance issues] Objective:: Physical exam General: Alert and oriented x3, no acute distress, pleasant and cooperative, [on room air] Lungs: Respirations even and unlabored, symmetrical chest expansion Eyes: PERRL Musculoskeletal: Flexion and extension of lumbar spine somewhat guarded secondary to pain, deep tendon reflexes normal, strength in upper and lower extremities [5/5], [abnormal gait noted] Neurological: Speech clear, salesforce developer equal, no gross sensory deficit Assessment:: Degenerative disc disease lumbar spine with lumbar radiculopathy symptoms Plan:: We will order the patient Diflucan 150 mg 1 tablet x 2. Patient's been encouraged to Benadryl by mouth or topical until itching subsides. She has been educated regarding infection at the incision site if she continues to scratch the area. She verbalizes understanding. We will follow-up with her in 1 week when she meets with the [employer] stimulator sales representative uniforms for reprogramming. She has been instructed to contact clinic if she has any concerns for next appointment. The patient and I specifically discussed risk factors for COVID19. These risks include, but are not limited to age greater than 60, heart or lung disease, diabetes, immunosuppression, and travel. We also discussed NSAIDs may worsen COVID19 infection or symptoms. Patient should not use NSAIDs to treat COVID19 signs or symptoms. Patient was also informed that any type of corticosteroid of any form (oral or injection) will decrease the patient's immune system response and may increase the likelihood of COVID19 infection [address] symptoms[address]. Navarro has reviewed this note and agrees with this plan of care. This note was dictated using voice recognition software and make contain errors or omissions. [facility] History I have reviewed the patient's past medical history: Yes Medical History: Reports:: Anxiety, Diabetes Mellitus Type 2, Gastroesophageal Reflux Disease(GERD), Hyperlipidemia, Hypertension Denies:: Cancer, Diabetes Mellitus Type 1, Internal Pacemaker, MRSA, Seizures *Have you ever received a pneumonia vaccine?: Yes *Have you received a flu vaccine this season?: Yes Other Medical History: Reports: Cataracts. Denies: Blood Transfusion Reaction Other Surgeries: Yes: Cholecystectomy. No: Pacemaker Amputation: No Fractures: Yes (L knee) - *Social History Smoking Status: Former smoker #Yrs smoked (if former smoker): 10 Alcohol Intake: never Substance Use Type: denies use *Occupational Status:: other Housing: house Household Members: none *Travel in the last 8 weeks: None - Psychiatric History Pschychiatric History:: Reports:: Anxiety Family Hx:: No significant family history
== END ==
PROVIDERS: PCP Family Medicine; Visit Provider Clinical Nurse Specialist Family Health
DX: M51.16 Intervertebral disc disorders with radiculopathy, lumbar region (principal)
CPT/HCPCS: 99212

== ENCOUNTER 2019-10-28 19:34 | Emergency (ER) | payer MEDICARE, OTHER, SELFPAY ==
[2019-10-28 19:49] VITALS: BP 151/76; PULSE 72; RESP 17; TEMP 36.7; O2SAT 98; BMI 21.9
[2019-10-28 20:34] VITALS: BP 100/52; PULSE 68; RESP 20; O2SAT 98
[2019-10-28 21:00] VITALS: BP 142/79; PULSE 64; RESP 20; O2SAT 97
[2019-10-28 21:36] VITALS: BP 144/48; PULSE 60; RESP 18; TEMP 36.7; O2SAT 98
--- NOTE | 2019-10-28 22:04 | HMH.EDALLER ---
ED Disposition Clinical Impression: Contact dermatitis Qualifiers: Contact dermatitis type: unspecified Contact dermatitis trigger: unspecified trigger Qualified Code(s): L25.9 - Unspecified contact dermatitis, unspecified cause Disposition: Home, Self-Care Condition on Discharge: Good Instructions: DI for Rash Additional Instructions: call dr navarro on wednesday for jada alatorrelillie Referrals: Robert Lara MD [Primary Care Provider] - - Critical Care Critical Care Time: No Attestation: On 10/28/19, the high probability of a clinically significant, sudden or life threatening deterioration of the following system(s) required my full and direct attention, intervention and personal management. The time I documented below is in addition to time spent performing reported procedures but includes the following listed in this critical care notation. Medical Decision Making - Medical Records Medical records reviewed: Yes: I reviewed the patient's medical records. - Jordan Inquiry Pt receiving controlled substance: No Vital Signs: 10/28/19 19:49 10/28/19 20:34 10/28/19 21:00 Temperature 98.1 F Temperature Source Oral Pulse Rate [Right Brachial] 72 68 64 Respiratory Rate 17 20 20 Blood Pressure [Right Arm] 151/76 H 100/52 L 142/79 H Blood Pressure Mean [Right Arm] 101 68 100 Blood Pressure Source [Right Arm] Automatic Cuff Automatic Cuff Blood Pressure Position [Right Arm] Sitting Supine 02 Sat by Pulse Oximetry 98 98 97 Oxygen Delivery Method Room Air Room Air Room Air 10/28/19 21:36 Temperature 98.1 F Temperature Source Oral Pulse Rate [Right Brachial] 60 Respiratory Rate 18 Blood Pressure [Right Arm] 144/48 H Blood Pressure Mean [Right Arm] 80 Blood Pressure Source [Right Arm] Automatic Cuff Blood Pressure Position [Right Arm] Sitting 02 Sat by Pulse Oximetry 98 Oxygen Delivery Method Room Air Orders (Tests/Meds): ED MEDICATIONS Generic Name Dose Route Start Last Admin Trade Name Freq PRN Reason Stop Dose Admin Sodium Chloride 8 ml 10/28/19 20:12 Sodium Chloride 0.9% 10ml Vial IV 11/27/19 20:11 NEEDED PRN dilute pepcid Discontinued Medications Generic Name Dose Route Start Last Admin Trade Name Freq PRN Reason Stop Dose Admin Diphenhydramine HCl 25 mg 10/28/19 20:12 10/28/19 20:40 Benadryl 50mg/1ml Vial IV 10/28/19 20:13 25 mg ONCE ONE Administration Famotidine 20 mg 10/28/19 20:12 10/28/19 20:40 Pepcid 20mg/2ml Vial IV 10/28/19 20:13 20 mg ONCE ONE Administration Methylprednisolone Sodium Succinate 125 mg 10/28/19 20:12 10/28/19 20:40 Solu-Medrol 125mg/2ml Vial IV 10/28/19 20:13 125 mg ONCE ONE Administration Allergic React/Insect Bite HPI - General Chief complaint: Allergic Reaction Stated complaint: Itching, surgery by Dr. Navarro 10/26/19 Time Seen by Provider: 10/28/19 21:30 Mode of Arrival - ED Triage: Ambulatory Source of Information: Patient, Medical Record Limitations: No Limitations - History of Present Illness HPI narrative: itchy rash to site of incision which pt states was worse with dressing - saw dr navarro for same on wednesday - no diffuse itching no other allergic reaction - pt with no fever or surg site drainage MD complaint: other (rash at surg site ) Onset (ago): day(s) Symptoms: rash, itching Treatment prior to arrival: benadryl Allergies/Adverse Reactions: Allergies Allergy/AdvReac Type Severity Reaction Status Date / Time pregabalin [From Lyrica] Allergy Severe swelling Verified 10/28/19 19:59 in face gabapentin Allergy Intermediate NA-HALLUCIN Verified 10/28/19 19:59 ATIONS Severity: moderate - Related Data Home Medications Medication Instructions Recorded Confirmed Loratadine [Claritin 10mg 10 mg PO DAILY 07/02/17 09/27/19 Tablet] Esomeprazole Magnesium [Nexium] 5 mg PO DAILY 11/18/18 09/27/19 Metformin HCl [Metformin HCl ER] 500 mg PO BID 11/18/18 09/27/19 clonazePAM [C
[2019-10-28 22:34] VITALS: BP 146/80; PULSE 62; RESP 16; TEMP 36.7; O2SAT 98
== END 2019-10-28 22:41 | disposition home or self-care (01) ==
PROVIDERS: Emergency Provider Emergency Medicine; PCP Family Medicine
DX: L25.9 Unspecified contact dermatitis, unspecified cause (principal); E78.5 Hyperlipidemia, unspecified; I10 Essential (primary) hypertension; K21.9 Gastro-esophageal reflux disease without esophagitis; F41.9 Anxiety disorder, unspecified; Z79.899 Other long term (current) drug therapy
CPT/HCPCS: 96374; 96375; 99283

== ENCOUNTER → 2019-11-02 12:48 | Outpatient (POV) | payer MEDICARE, OTHER, SELFPAY ==
[2019-11-02 13:44] VITALS: BP 120/78; PULSE 79; RESP 18; TEMP 37.1; O2SAT 98; BMI 23.4
--- NOTE | 2019-11-02 16:08 | HMH.PAINSOAP ---
[facility] Pain Management SOAP Note Subjective:: Patient is a 69-year-old white female who presents today for follow-up. She has been treated for low back pain with lumbar radiculopathy symptoms. She will meet with the spinal cord stimulator international sales representative today for reprogramming. She rates her pain a 5 out of 10 today. At her last visit, she was complaining of some itching that was worse around her incision site. She also complained of itching at her vaginal area. She was encouraged to take Benadryl. Patient says that she did go to the emergency room following that visit for continued pruritus. Patient says she was given a steroid injection along with Benadryl. She says she is feeling much better. Incision is well approximated, no redness, no drainage, no edema is noted to her site. Review of Systems General: No recent weight changes, no fever, no sleep disturbances Respiratory: No cough, no shortness of air, no recurring pulmonary infections Cardiovascular/peripheral vascular: No chest pain, no palpitations, no edema, no shortness of breath Gastrointestinal: No new onset incontinence, normal bowel movements reported Genitourinary: No new onset incontinence Musculoskeletal: Low back pain Psychiatric: Normal mood/affect Neurological: [Denies weakness in extremities], [denies balance issues] Objective:: Physical exam General: Alert and oriented x3, no acute distress, pleasant and cooperative, [on room air] Lungs: Respirations even and unlabored, symmetrical chest expansion Eyes: PERRL Musculoskeletal: Flexion and extension of lumbar spine somewhat guarded secondary to pain, deep tendon reflexes normal, strength in upper and lower extremities [5/5], [abnormal gait noted] Neurological: Speech clear, general activities therapist equal, no gross sensory deficit Assessment:: Degenerative disc disease lumbar spine with lumbar radiculopathy symptoms Plan:: Patient says she is doing well since reprogramming. She is also managed with [place] 5 mg 1 tablet p.o. daily. She says she does not need a refill on her medications at this time. We will plan to see the patient back in the clinic at her next medication refill visit. She has been instructed to contact the clinic if she has any concerns before her next appointment. The patient and I specifically discussed risk factors for COVID19. These risks include, but are not limited to age greater than 60, heart or lung disease, diabetes, immunosuppression, and travel. We also discussed NSAIDs may worsen COVID19 infection or symptoms. Patient should not use NSAIDs to treat COVID19 signs or symptoms. Patient was also informed that any type of corticosteroid of any form (oral or injection) will decrease the patient's immune system response and may increase the likelihood of COVID19 [address] symptoms[address] Navarro has reviewed this note and agrees with this plan of care. This note was dictated using voice recognition software and make contain errors or omissions. [facility] History I have reviewed the patient's past medical history: Yes Medical History: Reports:: Anxiety, Diabetes Mellitus Type 2, Gastroesophageal Reflux Disease(GERD), Hyperlipidemia, Hypertension Denies:: Cancer, Diabetes Mellitus Type 1, Internal Pacemaker, MRSA, Seizures *Have you ever received a pneumonia vaccine?: Yes *Have you received a flu vaccine this season?: Yes Other Medical History: Reports: Cataracts. Denies: Blood Transfusion Reaction Other Surgeries: Yes: Cholecystectomy. No: Pacemaker Amputation: No Fractures: Yes (L knee) - *Social History Smoking Status: Former smoker #Yrs smoked (if former smoker): 10 Alcohol Intake: never Substance Use Type: denies use *Occupational Status:: other Housing: house Household Members: none *Travel in the last 8 weeks: None - Psychiatric History Pschychiatric History:: Reports:: Anxiety Family Hx:: No significant family history
== END ==
PROVIDERS: PCP Family Medicine; Visit Provider Clinical Nurse Specialist Family Health
DX: M51.16 Intervertebral disc disorders with radiculopathy, lumbar region (principal)
CPT/HCPCS: 99212

== ENCOUNTER → 2019-12-14 12:59 | Outpatient (POV) | payer MEDICARE, OTHER, SELFPAY ==
--- NOTE | 2019-12-14 13:30 | HMH.PAINSOAP ---
[facility] Pain Management SOAP Note Subjective:: Patient is a pleasant 69-year-old white female who presents today for follow-up. She has been treated for low back pain with lumbar radiculopathy symptoms. She does have a spinal cord stimulator, [employer] in place. She is meeting with the customer relations representative today for education on recharging. Patient says that she is getting relief with the spinal cord stimulator, however, she is unable to keep the stimulator charged. She rates her pain a 3 out of 10 today. She says that she has tried different ways of charging the device, but is still having trouble. She will meet with the customer relations representative today to discuss options for him. Review of Systems General: No recent weight changes, no fever, no sleep disturbances Respiratory: No cough, no shortness of air, no recurring pulmonary infections Cardiovascular/peripheral vascular: No chest pain, no palpitations, no edema, no shortness of breath Gastrointestinal: No new onset incontinence, normal bowel movements reported Genitourinary: No new onset incontinence Musculoskeletal: Remittent low back pain Psychiatric: Normal mood/affect Neurological: [Denies weakness in extremities], [denies balance issues] Objective:: Physical exam General: Alert and oriented x3, no acute distress, pleasant and cooperative, [on room air] Lungs: Respirations even and unlabored, symmetrical chest expansion Eyes: PERRL Musculoskeletal: Flexion and extension of lumbar spine somewhat guarded secondary to pain, deep tendon reflexes normal, strength in upper and lower extremities [5/5], [abnormal gait noted] Neurological: Speech clear, corsetier equal, no gross sensory deficit Assessment:: Degenerative disc disease lumbar spine with lumbar radiculopathy symptoms Plan:: Patient did discuss recharging with customer relations representative today. We will plan to follow-up with the patient as needed. She has been instructed to contact the clinic if she has any concerns before her next appointment. The patient and I specifically discussed risk factors for COVID19. These risks include, but are not limited to age greater than 60, heart or lung disease, diabetes, immunosuppression, and travel. We also discussed NSAIDs may worsen COVID19 infection or symptoms. Patient should not use NSAIDs to treat COVID19 signs or symptoms. Patient was also informed that any type of corticosteroid of any form (oral or injection) will decrease the patient's immune system response and may increase the likelihood of COVID19 [address] aNvarro has reviewed this note and agrees with this plan of care. This note was dictated using voice recognition software and make contain errors or omissions. [facility] History I have reviewed the patient's past medical history: Yes Medical History: Reports:: Anxiety, Diabetes Mellitus Type 2, Gastroesophageal Reflux Disease(GERD), Hyperlipidemia, Hypertension Denies:: Cancer, Diabetes Mellitus Type 1, Internal Pacemaker, MRSA, Seizures *Have you ever received a pneumonia vaccine?: Yes *Have you received a flu vaccine this season?: Yes Other Medical History: Reports: Cataracts. Denies: Blood Transfusion Reaction Other Surgeries: Yes: Cholecystectomy. No: Pacemaker Amputation: No Fractures: Yes (L knee) - *Social History Smoking Status: Former smoker #Yrs smoked (if former smoker): 10 Alcohol Intake: never Substance Use Type: denies use *Occupational Status:: other Housing: house Household Members: none *Travel in the last 8 weeks: None - Psychiatric History Pschychiatric History:: Reports:: Anxiety Family Hx:: No significant family history
[2019-12-14 13:55] VITALS: BP 125/62; PULSE 54; RESP 18; TEMP 36.6; O2SAT 98; BMI 23.4
== END ==
PROVIDERS: PCP Family Medicine; Visit Provider Clinical Nurse Specialist Family Health
DX: M51.16 Intervertebral disc disorders with radiculopathy, lumbar region (principal)
CPT/HCPCS: 99212

== ENCOUNTER → 2020-04-09 15:16 | Outpatient (CLI) | payer MEDICARE, OTHER, SELFPAY ==
--- NOTE | 2020-04-09 15:19 | US_ITS ---
PROCEDURE: US SOFT TISSUE HEAD AND NECK Referring Doctor: Robert Lara Patient Age:69Y CLINICAL INDICATION: MASS OF LT SIDE OF NECK COMPARISON: No exams were available for comparison FINDINGS: There is a palpable area at the left side of the neck which is the focus of today's study; the patient states this area has regressed significantly. Today's exam reveals no cyst or fluid collection or mass. Fairly normal appearing lymph nodes bilaterally. For example normal appearing image lymph node at the upper right neck measuring up to 7.2 cm is unremarkable Right submandibular gland is imaged a nonspecific appearance. It measures 2.5 cm. X3 0.6 cm x 1 cm. Right parotid 3.5 cm x 3 cm x 1 cm AP The left submandibular gland measures 2.2 cm x 3.1 cm x 1.1 cm. The left parotid gland measuring 3.3 x 1.3 cm. A benign appearing node imaged at the upper left neck image measures 18.5 cm and is unremarkable IMPRESSION: The palpable area at the left neck was specifically imaged. No cyst nor fluid collection or mass seen in this area by the instructional design technologist.-a patient states this has regressed significantly more recently. Normal nodes bilaterally at neck If high probable abnormalities persist at the neck recommend CT with contrast in follow-up Dictated by: Juanjose Borges MD 04/09/2020 17:20 Juanjose Borges MD in [place] 04/09/2020 17:20
== END ==
PROVIDERS: PCP Family Medicine; Visit Provider Family Medicine
DX: R22.1 Localized swelling, mass and lump, neck (principal)
CPT/HCPCS: 76536

== ENCOUNTER → 2020-05-02 13:52 | Outpatient (POV) | payer MEDICARE, OTHER, SELFPAY ==
[2020-05-02 13:54] VITALS: BP 136/62; PULSE 74; RESP 18; O2SAT 98; BMI 29.6
--- NOTE | 2020-05-02 14:31 | HMH.PAINSOAP ---
[facility] Pain Management SOAP Note Subjective:: Patient is a pleasant 69-year-old white female who presents today for follow-up. She has been treated for low back pain with lumbar radiculopathy symptoms. She does have a spinal cord stimulator. She is doing well she rates her pain a 5 out of 10. Patient says that she is getting quite a bit of relief from this. She is currently on [place] 5 mg 1 p.o. daily she denies any side effects to this medication. William #[id number] reviewed and appropriate she is on a morphine equivalent of 5. She denies side effects to her medication. ROS General: no recent weight change, no fever, no sleep disturbances Respiratory: no cough, no shortness of air, no recurring pulmonary infections Cardiovascular/Peripheral Vascular: No chest pain, No palpitations, no edema, no shortness of breath. Gastrointestinal: no new onset incontinence, normal bowel movements reported Genitourinary: no new onset incontinence Musculoskeletal: Back pain, neck pain Psychiatric: normal mood/ affect Neurological: [denies new onset weakness in extremities], [denies new onset balance issues] Objective:: Physical Exam General: Alert and oriented x3, no acute distress, pleasant and cooperative, [on room air] Lungs: Resps E/U, Symmetrical chest expansion, Eyes: PERRL Musculoskeletal: Flexion and extension of cervical and lumbar spine somewhat guarded secondary to pain, deep tendon reflexes normal, strength in upper and lower extremities [5/5], slightly antalgic gait noted Neurological: speech clear, clinical data management manager equal, no gross sensory deficits Assessment:: Degenerative disc disease cervical spine cervical radiculopathy, degenerative disc disease lumbar spine with lumbar radiculopathy Plan:: We will see the patient back in 3 months continue her [place] 5 mg 1 p.o. daily. She has been instructed to call the office if she has any issues prior to her next appointment. Dr. Navarro has reviewed this note and agrees with this plan of care. This note was dictated using voice recognition software and may contain errors or omissions Patient has been prescribed a controlled substance after being counseled on the medication, medication safety, and possible side effects. WILLIAM report has been obtained and reviewed prior to prescription and found to be appropriate. Opioid contract was reviewed and signed by the patient, and that they have agreed to all of the terms set forth by our compliance program. [facility] History I have reviewed the patient's past medical history: Yes Medical History: Reports:: Anxiety, Diabetes Mellitus Type 2, Gastroesophageal Reflux Disease(GERD), Hyperlipidemia, Hypertension, Palpitations Denies:: Cancer, Diabetes Mellitus Type 1, Internal Pacemaker, MRSA, Seizures *Have you ever received a pneumonia vaccine?: Yes *Have you received a flu vaccine this season?: Yes Other Medical History: Reports: Cataracts. Denies: Blood Transfusion Reaction Other Surgeries: Yes: Cholecystectomy. No: Pacemaker Amputation: No Fractures: Yes (L knee) - *Social History Smoking Status: Former smoker #Yrs smoked (if former smoker): 10 Alcohol Intake: never Substance Use Type: denies use *Occupational Status:: other Housing: house Household Members: none *Travel in the last 8 weeks: None - Psychiatric History Pschychiatric History:: Reports:: Anxiety Family Hx:: No significant family history
== END ==
PROVIDERS: PCP Family Medicine; Visit Provider Clinical Nurse Specialist Family Health
DX: M50.10 Cervical disc disorder with radiculopathy, unspecified cervical region (principal); M51.16 Intervertebral disc disorders with radiculopathy, lumbar region
CPT/HCPCS: 99212; G0463

== ENCOUNTER → 2020-08-01 13:50 | Outpatient (POV) | payer MEDICARE, OTHER, SELFPAY ==
--- NOTE | 2020-08-01 14:23 | HMH.PAINSOAP ---
[facility] Pain Management SOAP Note Subjective:: 69-year-old white female who presents today for medication refills. She is being treated for low back pain with lumbar radiculopathy symptoms she rates her pain a 7 out of 10. She states she fell recently due to high blood sugar. She has been seen by her primary care physician for this. Patient's Jordan #[id number] reviewed and appropriate. Patient is presently on [place] 5 mg 1 p.o. daily. She denies side effects to this. ROS General: no recent weight change, no fever, no sleep disturbances Respiratory: no cough, no shortness of air, no recurring pulmonary infections Cardiovascular/Peripheral Vascular: No chest pain, No palpitations, no edema, no shortness of breath. Gastrointestinal: no new onset incontinence, normal bowel movements reported Genitourinary: no new onset incontinence Musculoskeletal: Back pain, leg pain Psychiatric: normal mood/ affect, Neurological: [denies new onset weakness in extremities], [denies new onset balance issues] Objective:: Physical Exam General: Alert and oriented x3, no acute distress, pleasant and cooperative, [on room air] Lungs: Resps E/U, Symmetrical chest expansion, Eyes: PERRL Musculoskeletal: Flexion and extension of lumbar spine somewhat guarded secondary to pain, deep tendon reflexes normal, strength in upper and lower extremities [5/5], [abnormal gait noted] Neurological: speech clear, computer meteorologist equal, no gross sensory deficits Assessment:: Generative disc disease lumbar spine lumbar radiculopathy, degenerative disc disease cervical spine cervical radiculopathy Plan:: We will continue her [place] 5 mg 1 p.o. daily. She has been instructed to call the office if she has any issues prior to her next appointment we will see her back in 3 months reassess her symptoms at that time. Patient has been prescribed a controlled substance after being counseled on the medication, medication safety, and possible side effects. [facility] report has been obtained and reviewed prior to prescription and found to be appropriate. Opioid contract was reviewed and signed by the patient, and that they have agreed to all of the terms set forth by our compliance program. Dr. Navarro has reviewed this note and agrees with this plan of care. This note was dictated using voice recognition software and may contain errors or omissions [facility] History I have reviewed the patient's past medical history: Yes Medical History: Reports:: Anxiety, Diabetes Mellitus Type 2, Gastroesophageal Reflux Disease(GERD), Hyperlipidemia, Hypertension, Palpitations Denies:: Cancer, Diabetes Mellitus Type 1, Internal Pacemaker, MRSA, Seizures *Have you ever received a pneumonia vaccine?: Yes *Have you received a flu vaccine this season?: Yes Other Medical History: Reports: Cataracts. Denies: Blood Transfusion Reaction Other Surgeries: Yes: Cholecystectomy. No: Pacemaker Amputation: No Fractures: Yes (L knee) - *Social History Smoking Status: Former smoker #Yrs smoked (if former smoker): 10 Alcohol Intake: never Substance Use Type: denies use *Occupational Status:: other Housing: house Household Members: none *Travel in the last 8 weeks: None - Psychiatric History Pschychiatric History:: Reports:: Anxiety Family Hx:: No significant family history
[2020-08-01 14:36] VITALS: BP 110/65; PULSE 61; RESP 18; TEMP 36.8; O2SAT 98; BMI 23.2
== END ==
PROVIDERS: PCP Family Medicine; Visit Provider Clinical Nurse Specialist Family Health
DX: M51.16 Intervertebral disc disorders with radiculopathy, lumbar region (principal); M50.10 Cervical disc disorder with radiculopathy, unspecified cervical region
CPT/HCPCS: 99212; G0463

== ENCOUNTER → 2020-08-26 13:48 | Outpatient (CLI) | payer MEDICARE, OTHER, SELFPAY ==
--- NOTE | 2020-08-26 | XR_ITS ---
PROCEDURE: XR KNEE RT 3V CLINICAL INDICATION: PAIN IN RT KNEE COMPARISON: CR [id number] KNEE-4 OR 5 VIEWS-RT from 08/08/2014 CR KNEE3L KNEE-3 VIEWS-LT from 09/20/2014 CR KNEE3R KNEE-3 VIEWS-RT from 02/08/2015 FINDINGS: No fracture or dislocation. No lytic or blastic change. There is normal mineralization. The joint spaces are well-preserved. No significant degenerative/arthritic changes. No erosive changes evident. Other findings:None. IMPRESSION: No acute findings. Dictated by: Brian Dominguez MD 08/26/2020 15:22 Brian Dominguez MD in [place] 08/26/2020 15:22
--- NOTE | 2020-08-26 | XR_ITS ---
PROCEDURE: XR KNEE LT 3V CLINICAL INDICATION: PAIN IN LT KNEE COMPARISON: CR [id number] KNEE-4 OR 5 VIEWS-RT from 08/08/2014 CR KNEE3L KNEE-3 VIEWS-LT from 09/20/2014 CR KNEE3R KNEE-3 VIEWS-RT from 02/08/2015 FINDINGS: No fracture or dislocation. No lytic or blastic change. There is normal mineralization. There is minimal osteoarthritic change of the medial compartment of the left knee. Other findings:None. IMPRESSION: Minimal osteoarthritis medial compartment left knee not significantly changed. Dictated by: Brian Dominguez MD 08/26/2020 15:23 Brian Dominguez MD in [place] 08/26/2020 15:23
== END ==
PROVIDERS: PCP Family Medicine; Visit Provider Family Medicine
DX: M25.562 Pain in left knee (principal); M25.561 Pain in right knee
CPT/HCPCS: 73562

== ENCOUNTER → 2020-10-24 14:55 | Outpatient (POV) | payer MEDICARE, OTHER, SELFPAY ==
[2020-10-24 15:09] VITALS: BP 153/81; PULSE 66; RESP 18; O2SAT 97; BMI 23.0
[2020-10-24 16:42] LABS: Barbiturates Screen,Urine Negative ng/ml (<200)
[2020-10-24 16:43] LABS: Benzodiazepines Screen,Urine Negative ng/ml (<200)
[2020-10-24 16:44] LABS: Amphetamine/Metha Screen,Urine Negative ng/ml (<1000); Cannabinoid Screen,Urine Negative ng/ml (<50)
[2020-10-24 16:45] LABS: Cocaine Screen,Urine Negative ng/ml (<300)
[2020-10-24 16:46] LABS: Methadone Screen,Urine Negative ng/ml (<300); Opiate Screen,Urine Negative ng/ml (<300)
[2020-10-24 16:47] LABS: Phencyclidine Screen,Urine Negative ng/ml (<25)
--- NOTE | 2020-10-24 16:58 | P.CONS_ITS ---
[facility] Pain Management SOAP Note Subjective:: Patient is a 70-year-old white female who presents today for follow-up and medication refills. The patient is being treated for degenerative disc disease lumbar spine with lumbar radiculopathy symptoms. Her pain is a 5 out of 10 today. She is managed with Meridian 5 mg 1 tablet p.o. daily in our clinic. She denies any side effects. Her William #[id number] has been reviewed and is appropriate. Her morphine equivalent is 5. She will undergo drug screen today. Patient says the medication is giving her approximately 60% relief of her pain. Review of Systems General: No recent weight changes, no fever, no sleep disturbances Respiratory: No cough, no shortness of air, no recurring pulmonary infections Cardiovascular/peripheral vascular: No chest pain, no palpitations, no edema, no shortness of breath Gastrointestinal: No new onset incontinence, normal bowel movements reported Genitourinary: No new onset incontinence Musculoskeletal: Chronic low back pain Psychiatric: Normal mood/affect Neurological: [Denies weakness in extremities], [denies balance issues] Objective:: Physical exam General: Alert and oriented x3, no acute distress, pleasant and cooperative, [on room air] Lungs: Respirations even and unlabored, symmetrical chest expansion Eyes: PERRL Musculoskeletal: Flexion and extension of [] lumbar spine somewhat guarded secondary to pain, deep tendon reflexes normal, strength in upper and lower extremities [5/5], [abnormal gait noted] Neurological: Speech clear, religious education coordinator equal, no gross sensory deficit Assessment:: Degenerative disc disease lumbar spine with lumbar radiculopathy symptoms Plan:: We will refill the patient's Meridian 5 mg 1 tablet p.o. daily. We will give her a month medication see her back in the clinic in 1 month. Patient has been prescribed a controlled substance after being counseled on the medication, medication safety, and possible side effects. WILLIAM report has been obtained and reviewed prior to prescription and found to be appropriate. Opioid contract was reviewed and signed by the patient, and that they have agreed to all of the terms set forth by our compliance program. Risks and benefits of the medication have been explained in detail to the patient. The patient has been advised to consult with his/her primary care provider and pharmacist regarding drug-drug interaction of medications currently prescribed. Patient has been instructed to contact the clinic with any concerns before the next appointment. Dr. Navarro has reviewed this note and agrees with this plan of care. This note was dictated using voice recognition software and make contain errors or omissions. [facility] History I have reviewed the patient's past medical history: Yes Medical History: Reports:: Anxiety, Diabetes Mellitus Type 2, Gastroesophageal Reflux Disease(GERD), Hyperlipidemia, Hypertension, Palpitations Denies:: Cancer, Diabetes Mellitus Type 1, Internal Pacemaker, MRSA, Seizures *Have you ever received a pneumonia vaccine?: Yes *Have you received a flu vaccine this season?: Yes Other Medical History: Reports: Cataracts. Denies: Blood Transfusion Reaction Other Surgeries: Yes: Cholecystectomy. No: Pacemaker Amputation: No Fractures: Yes (L knee) - *Social History Smoking Status: Former smoker #Yrs smoked (if former smoker): 10 Alcohol Intake: never Substance Use Type: denies use *Occupational Status:: unemployed Housing: house Household Members: none *Travel in the last 8 weeks: None - Psychiatric History Pschychiatric History:: Reports:: Anxiety
[2020-11-03 17:08] LABS: Opiates Negative (Cutoff=100)
== END ==
PROVIDERS: PCP Family Medicine; Visit Provider Clinical Nurse Specialist Family Health
DX: M51.16 Intervertebral disc disorders with radiculopathy, lumbar region (principal); Z79.891 Long term (current) use of opiate analgesic
CPT/HCPCS: 80305; 80361; 80365; 99212; G0463; G0480

== ENCOUNTER → 2020-11-06 13:26 | Outpatient (CLI) | payer MEDICARE, OTHER, SELFPAY ==
--- NOTE | 2020-11-06 13:33 | XR_ITS ---
PROCEDURE: XR HIP LT 2-3V W/PELVIS CLINICAL INDICATION: left hip pain COMPARISON: No exams were available for comparison FINDINGS: No fracture or dislocation is evident. No significant degenerative change. No lytic or blastic change. Unremarkable soft tissues. IMPRESSION: No acute findings. Dictated by: Brian Dominguez MD 11/06/2020 15:53 Brian Dominguez MD in [place] 11/06/2020 15:53
--- NOTE | 2020-11-06 13:33 | XR_ITS ---
PROCEDURE: XR HIP RT 2-3V W/PELVIS CLINICAL INDICATION: right hip pain COMPARISON: No exams were available for comparison FINDINGS: There are mild osteoarthritic changes of the right hip with some spurring of the acetabulum inferiorly. There is slight decrease in the joint space superiorly. No fracture or dislocation. No lytic or blastic change. Neurostimulator device is noted overlying the lumbar region. IMPRESSION: Mild osteoarthritis of the right hip Dictated by: Brina Dominguez MD 11/06/2020 15:56 Brian Dominguez MD in [place] 11/06/2020 15:56
== END ==
PROVIDERS: PCP Family Medicine; Visit Provider Orthopaedic Surgery
DX: M25.551 Pain in right hip (principal); M25.552 Pain in left hip
CPT/HCPCS: 73502

== ENCOUNTER 2020-11-10 16:32 | Emergency (ER) | payer MEDICARE, OTHER, SELFPAY ==
[2020-11-10 16:52] VITALS: BP 161/82; PULSE 66; RESP 16; TEMP 36.7; O2SAT 97; BMI 23.0
--- NOTE | 2020-11-10 17:00 | HMH.EDGENADL ---
ED Disposition Clinical Impression: Uncontrolled hypertension Disposition: Home, Self-Care Condition on Discharge: Good Additional Instructions: use medication as directed. Follow up with PCP. Return to ED if new symptoms. Prescriptions: hydroCHLOROthiazide [Hydrochlorothiazide 12.5mg Tab] 12.5 mg PO DAILY 30 Days #30 tab Transmission Status: Received by [facility] Referrals: Robert Lara MD [Primary Care Provider] - - Critical Care Critical Care Time: No Attestation: On 11/10/20, the high probability of a clinically significant, sudden or life threatening deterioration of the following system(s) required my full and direct attention, intervention and personal management. The time I documented below is in addition to time spent performing reported procedures but includes the following listed in this critical care notation. Medical Decision Making - Jordan Inquiry Pt receiving controlled substance: No Jordan was queried for this patient: No Vital Signs: 11/10/20 16:52 11/10/20 19:10 Temperature 98.1 F 98.0 F Temperature Source Oral Oral Pulse Rate 79 Pulse Rate [Left Radial] 66 Respiratory Rate 16 16 Blood Pressure 129/76 Blood Pressure [Right Arm] 161/82 H Blood Pressure Mean [Right Arm] 108 Blood Pressure Source [Right Arm] Automatic Cuff Blood Pressure Position [Right Arm] Sitting 02 Sat by Pulse Oximetry 97 Oxygen Delivery Method Room Air Room Air - Lab Data Lab Results 11/10/20 17:03: WBC 15.4 H, RBC 5.47 H, Hgb 13.8, Hct 42.2, MCV 77.2 L, MCH 25.2 L, MCHC 32.6, RDW 14.7, Plt Count 293, MPV 8.5, Neut % (Auto) 71.0, Lymph % (Auto) 23.2, [place] % (Auto) 4.8, Eos % (Auto) 0.5, Baso % (Auto) 0.5, Neut # (Auto) 10.9 H, Lymph # (Auto) 3.6, [place] # (Auto) 0.8, Eos # (Auto) 0.1, Baso # (Auto) 0.1, Total Counted 100, Neutrophils % (Manual) 71, Lymphocytes % (Manual) 24, Monocytes % (Manual) 5, Platelet Estimate Normal, RBC Morphology Normal 11/10/20 17:03: Sodium 138, Potassium 3.2 L, Chloride 99, Carbon Dioxide 26, Anion Gap 16.2 H, BUN 29 H, Creatinine 1.00, Estimated Creat Clear 44, Estimated GFR 55 L, Est GFR ( Amer) 66, Glucose 110 H, Calcium 9.1, Total Bilirubin 1.0, AST 39 H, ALT 27, Alkaline Phosphatase 96, Troponin I < 0.01, Total Protein 8.0, Albumin 4.6, Globulin 3.4 H, Albumin/Globulin Ratio 1.4 Result diagrams: 11/10/20 17:03 11/10/20 17:03 Orders (Tests/Meds): ED MEDICATIONS Discontinued Medications Generic Name Dose Route Start Last Admin Trade Name Freq PRN Reason Stop Dose Admin Metoprolol Succinate 25 mg 11/11/20 17:04 Metoprolol Succinate Xl 25mg Tablet PO 11/11/20 17:05 ONCE ONE General Adult HPI - General Chief complaint: Recheck/Abnormal Lab/Rx Stated complaint: high blood Pressure Time Seen by Provider: 11/10/20 17:00 Mode of Arrival: Ambulatory Limitations: No Limitations Description of Symptoms (Recalled from ER Triage Doc. by RN): Pt c/o elevated BP but is asymptomatic - History of Present Illness HPI narrative: Ms. Canales is 70-year-old female who came to the emergency room because her blood pressure is elevated it was systolic 161. She decided to come to the emergency room. She denies any chest pain or shortness of breath. She denies any change in mental status or headache. She denied any change in sensation in upper or lower extremities. She denied any nausea or vomiting. She takes blood pressure medications on daily basis. - Related Data Home Medications Medication Instructions Recorded Confirmed Loratadine [Claritin 10mg 10 mg PO DAILY 07/02/17 11/06/20 Tablet] clonazePAM [Clonazepam] 1 mg PO TID 11/18/18 11/06/20 Ibuprofen/Famotidine [Duexis 1 tab PO TID 05/19/19 11/06/20 800-26.6 mg Tablet] cholecalciferol (vitamin D3) 25 25 mcg PO DAILY 08/28/19 11/06/20 mcg (1,000 unit) capsule esomeprazole magnesium 40 mg 40 mg PO DAILY cap 07/18/20 11/06/20 capsule,delayed release metformin 5
[2020-11-10 17:11] LABS: Basophils # 0.1 K/mm3 (0-0.2); Basophils % 0.5 % (0.1-2.0); Eosinophils # 0.1 K/mm3 (0.0-0.4); Eosinophils % 0.5 % (0.1-12.0); Hematocrit 42.2 % (37.0-47.0); Hemoglobin 13.8 g/dL (12.2-16.2); Lymphocytes # 3.6 K/mm3 (0.7-4.5); Lymphocytes % 23.2 % (10-50); Mean Corpuscular HGB Conc 32.6 g/dL (31.8-35.4); Mean Corpuscular Hemoglobin 25.2 pg (27.0-31.2); Mean Corpuscular Volume 77.2 fl (81-99); Mean Platelet Volume 8.5 fl (7.4-10.4); Monocytes # 0.8 K/mm3 (0.1-1.0); Monocytes % 4.8 % (1.7-9.3); Neutrophils # 10.9 K/mm3 (1.8-7.8); Platelet Count 293 K/mm3 (142-424); Red Blood Count 5.47 M/mm3 (4.20-5.40); Red Cell Distribution Width 14.7 % (11.5-17.5); White Blood Count 15.4 K/mm3 (4.8-10.8)
[2020-11-10 17:12] LABS: MANUAL DIFFERENTIAL MANUAL DIFFERENTIAL (MANUAL DIFF)
[2020-11-10 17:26] LABS: Chloride 99 mmol/L (98-107); Lymphocytes % 24 % (10-50); Monocytes % 5 % (2-9); Neutrophils % 71 % (42-76); Platelet Estimate Normal; RBC Morphology Normal; Sodium 138 mmol/L (136-145); Total Cells Counted 100
[2020-11-10 17:27] LABS: Potassium 3.2 mmoL/L (3.5-5.1)
[2020-11-10 17:29] LABS: Alanine Aminotransferase 27 U/L (12-78); Albumin Level 4.6 g/dl (3.5-5.0); Albumin/Globulin Ratio 1.4 (1.1-1.8); Alkaline Phosphatase 96 U/L (38-126); Anion Gap 16.2 mEq/L (5-15); Aspartate Amino Transferase 39 U/L (14-36); Blood Urea Nitrogen 29 mg/dl (7-17); Carbon Dioxide 26 mmol/L (22.0-30.0); Creatinine Clearance Estimated 44 mL/min (50-200); Estimated Glomerular Filt Rate 55 ml/min (>60); GFR (African American) 66 ML/MIN (>60); Globulin 3.4 g/dL (1.3-3.2)
[2020-11-10 17:30] LABS: Calcium 9.1 mg/dl (8.4-10.2); Glucose 110 mg/dl (74-100)
[2020-11-10 17:47] LABS: Troponin I < 0.01 ng/ml (0.00-0.034)
[2020-11-10 19:10] VITALS: BP 129/76; PULSE 79; RESP 16; TEMP 36.7; O2SAT 95
== END 2020-11-10 19:11 | disposition home or self-care (01) ==
LOC: UTC 16:37 → ER 16:43
PROVIDERS: Emergency Provider Internal Medicine; PCP Family Medicine
DX: I16.9 Hypertensive crisis, unspecified (principal); K21.9 Gastro-esophageal reflux disease without esophagitis; F41.8 Other specified anxiety disorders; E11.9 Type 2 diabetes mellitus without complications; Z87.891 Personal history of nicotine dependence; E78.5 Hyperlipidemia, unspecified; Z79.899 Other long term (current) drug therapy
CPT/HCPCS: 80053; 84484; 85007; 85025; 93005; 99282

== ENCOUNTER → 2020-11-21 14:36 | Outpatient (POV) | payer MEDICARE, OTHER, SELFPAY ==
[2020-11-21 14:50] VITALS: BP 132/81; PULSE 69; RESP 18; TEMP 36.3; O2SAT 99; BMI 23.4
--- NOTE | 2020-11-21 15:38 | HMH.PAINSOAP ---
[facility] Pain Management SOAP Note Subjective:: Patient is a 70 who presents today for follow-up. She is being treated in the clinic for degenerative disc disease lumbar spine with lumbar radicular symptoms as well as chronic bilateral knee pain. The patient is managed with Spur 5 mg 1 tablet p.o. twice daily. She denies any side effects to the medication. She says that she gets about 70 to 80% relief. She also takes Duexis 1 tablet p.o. 3 times daily. She says this also gives her excellent relief. Her pain is a 7 out of 10 today which is her baseline. She has tried injective therapy in our clinic in the past. She says that she had bilateral intra-articular knee injections and ended up in the emergency room due to increased blood glucose level and increased blood pressure. She says that she does get cortisone injections by Dr. Lara as well as Dr. Alejandre. At this time she does not feel she needs any type. She denies any side effects to the medication. The patient's past medical [id number] has been reviewed and is appropriate. Drug screens have been appropriate. Review of Systems General: No recent weight changes, no fever, no sleep disturbances Respiratory: No cough, no shortness of air, no recurring pulmonary infections Cardiovascular/peripheral vascular: No chest pain, no palpitations, no edema, no shortness of breath Gastrointestinal: No new onset incontinence, normal bowel movements reported Genitourinary: No new onset incontinence Musculoskeletal: Bilateral low back pain, bilateral knee pain intermittent Psychiatric: [Normal mood/affect] Neurological: [Denies weakness in extremities], [denies balance issues] Objective:: Physical exam General: Alert and oriented x3, no acute distress, pleasant and cooperative, [on room air] Lungs: Respirations even and unlabored, symmetrical chest expansion Eyes: PERRL Musculoskeletal: Flexion and extension of [] lumbar [spine] somewhat guarded secondary to pain, strength in upper and lower extremities [5/5], [antalgic gait noted] Neurological: Speech clear, [sinter press operator equal], no gross sensory deficit Assessment:: Degenerative disc disease lumbar spine with lumbar radicular symptoms, bilateral knee pain Plan:: We will refill the patient's Duexis 1 tablet p.o. 3 times daily. We will also refill the Spur 5 mg 1 tablet p.o. daily. Patient's Duexis will go to clinic pharmacy. Spur will go to [facility] pharmacy. We will see the patient for reevaluation of symptoms. Patient has been instructed to contact the clinic with any concerns before the next appointment. Risks and benefits of the medication have been explained in detail to the patient. The patient has been advised to consult with his/her primary care provider and pharmacist regarding drug-drug interaction of medications currently prescribed. Patient has been prescribed a controlled substance after being counseled on the medication, medication safety, and possible side effects. WILLIAM report has been obtained and reviewed prior to prescription and found to be appropriate. Opioid contract was reviewed and signed by the patient, and that they have agreed to all of the terms set forth by our compliance program.Dr. Navarro has reviewed this note and agrees with this plan of care. This note was dictated using voice recognition software and make contain errors or omissions. [facility] History I have reviewed the patient's past medical history: Yes Medical History: Reports:: Anxiety, Diabetes Mellitus Type 2, Gastroesophageal Reflux Disease(GERD), Hyperlipidemia, Hypertension, Palpitations Denies:: Cancer, Diabetes Mellitus Type 1, Internal Pacemaker, MRSA, Seizures *Have you ever received a pneumonia vaccine?: Yes *Have you received a flu vaccine this season?: No Other Medical History: Reports: Arthritis, Cataracts. Denies: Blood Transfusion Reaction Other Surgeries: Yes: Cholecystectomy. No: Pacemaker Amputation: No Fractures: Yes (L knee) - *Social History [facility]
== END ==
PROVIDERS: Visit Provider Clinical Nurse Specialist Family Health
DX: M51.16 Intervertebral disc disorders with radiculopathy, lumbar region (principal); M25.561 Pain in right knee; M25.562 Pain in left knee
CPT/HCPCS: 99212; G0463

== ENCOUNTER 2020-11-26 11:12 | Emergency (ER) | payer MEDICARE, OTHER, SELFPAY ==
--- NOTE | 2020-11-26 11:11 | ECG_ITS ---
APPROVED REPORT Exam: Resting ECG HR:54 bpm ECG Measurements Heart Rate 54 AXES OK 150 P 29 QRSd 72 QRS 31 QT 420 T 43 QTc 398 Conclusion Sinus bradycardia Otherwise normal ECG Electronically signed by : Robert Zayas MD 11/27/2020 11:45:29
[2020-11-26 11:17] VITALS: BP 144/65; PULSE 57; RESP 16; TEMP 36.8; O2SAT 97; BMI 23.4
--- NOTE | 2020-11-26 11:18 | HMH.EDGENADL ---
ED Disposition Clinical Impression: Dizziness Disposition: Home, Self-Care Condition on Discharge: Fair Instructions: DI for Vertigo, DI for Benign Paroxysmal Positional Vertigo Additional Instructions: Antivert as prescribed. Sit and rise very slowly and with assistance. Follow-up with Dr. Lara, call for appointment. Return to the emergency department if worsening dizziness. Prescriptions: Meclizine HCl [Antivert 25mg tablet] 25 mg PO TIDP PRN #15 tab PRN Reason: Vertigo Transmission Status: Pending to [facility] Referrals: Provider,Referral, [Primary Care Provider] - - Critical Care Critical Care Time: No Attestation: On , the high probability of a clinically significant, sudden or life threatening deterioration of the following system(s) required my full and direct attention, intervention and personal management. The time I documented below is in addition to time spent performing reported procedures but includes the following listed in this critical care notation. Medical Decision Making - Jordan Inquiry Pt receiving controlled substance: No Vital Signs: 11/26/20 11:17 Temperature 98.3 F Temperature Source Oral Pulse Rate [Right] 57 L Respiratory Rate 16 Blood Pressure [Right Arm] 144/65 H Blood Pressure Mean [Right Arm] 91 02 Sat by Pulse Oximetry 97 Oxygen Delivery Method Room Air - Lab Data Lab Results 11/26/20 11:30: WBC 7.6, RBC 5.20, Hgb 13.2, Hct 41.1, MCV 79.0 L, MCH 25.4 L, MCHC 32.1, RDW 15.3, Plt Count 225, MPV 8.5, Neut % (Auto) 61.4, Lymph % (Auto) 32.0, [place] % (Auto) 3.9, Eos % (Auto) 2.2, Baso % (Auto) 0.5, Neut # (Auto) 4.7, Lymph # (Auto) 2.4, [place] # (Auto) 0.3, Eos # (Auto) 0.2, Baso # (Auto) 0.0 11/26/20 11:30: Sodium 141, Potassium 3.8, Chloride 105, Carbon Dioxide 28, Anion Gap 11.8, BUN 8, Creatinine 0.80, Estimated Creat Clear 44, Estimated GFR 71, Est GFR ( Amer) 86, Glucose 125 H, Calcium 9.0, Total Bilirubin 0.8, AST 33, ALT 25, Alkaline Phosphatase 81, Troponin I < 0.01, Total Protein 6.6, Albumin 3.9, Globulin 2.7, Albumin/Globulin Ratio 1.4 11/26/20 12:00: Urine Color Yellow, Urine Appearance Clear, Urine pH 6.0, Ur Specific [place] 1.010, Urine Protein Negative, Urine Glucose (UA) Negative, Urine Ketones Negative, Urine Blood Negative, Urine Nitrate Negative, Urine Bilirubin Negative, Urine Urobilinogen 0.2, Ur Leukocyte Esterase Negative, Urine RBC None, Urine WBC None, Ur Squamous Epith Cells Occasional, Urine Bacteria Trace Result diagrams: 11/26/20 11:30 11/26/20 11:30 Orders (Tests/Meds): ED MEDICATIONS Discontinued Medications Generic Name Dose Route Start Last Admin Trade Name Vikas PRN Reason Stop Dose Admin Clonazepam 1 mg 11/26/20 12:09 11/26/20 12:16 Clonazepam 1mg Tablet PO 11/26/20 12:10 1 mg ONCE ONE Administration Meclizine HCl 25 mg 11/26/20 12:09 11/26/20 12:15 Meclizine 25mg Tablet PO 11/26/20 12:10 25 mg ONCE ONE Administration Sodium Chloride 1,000 ml 11/26/20 11:27 11/26/20 12:15 Sodium Chloride 0.9% 1000ml Bag IV 11/26/20 11:28 1,000 ml BOLUS ONE Administration - ECG Data Tracing #1 EKG interpreted by Chang Lee MD: Rhythm: sinus bradycardia Rate: 54 [place]: normal Ectopy: none Conduction: normal ST Segment Changes: none T Wave Changes: none Q Waves: none No evidence of acute ischemia or injury - Physician Consults Physician Consulted: Marco Time: 14:01 Reason -: Pt condition Comment/Response: Discussed all clinical findings. He requested patient be discharged home, continue Antivert. - Reevaluation(s) Time: 12:50 Reevaluation #1: States she is feeling better. Not dizzy with head movements. Will sit/stand/ambulate to see if able to discharge. Lives alone. Unable to sit, dizzy and panic stricken. Time: 14:15 Reevaluation #3: I had patient sit up vertically. She initially complained of severe dizziness and began to panic and wanted to
[2020-11-26 11:41] LABS: Basophils % 0.5 % (0.1-2.0); Eosinophils # 0.2 K/mm3 (0.0-0.4); Eosinophils % 2.2 % (0.1-12.0); Hematocrit 41.1 % (37.0-47.0); Hemoglobin 13.2 g/dL (12.2-16.2); Lymphocytes # 2.4 K/mm3 (0.7-4.5); Mean Corpuscular HGB Conc 32.1 g/dL (31.8-35.4); Mean Corpuscular Hemoglobin 25.4 pg (27.0-31.2); Mean Platelet Volume 8.5 fl (7.4-10.4); Monocytes # 0.3 K/mm3 (0.1-1.0); Monocytes % 3.9 % (1.7-9.3); Neutrophils # 4.7 K/mm3 (1.8-7.8); Neutrophils % 61.4 % (37.0-80.0); Platelet Count 225 K/mm3 (142-424); Red Cell Distribution Width 15.3 % (11.5-17.5); White Blood Count 7.6 K/mm3 (4.8-10.8)
[2020-11-26 11:49] LABS: Alanine Aminotransferase 25 U/L (12-78); Albumin Level 3.9 g/dl (3.5-5.0); Albumin/Globulin Ratio 1.4 (1.1-1.8); Alkaline Phosphatase 81 U/L (38-126); Anion Gap 11.8 mEq/L (5-15); Aspartate Amino Transferase 33 U/L (14-36); Bilirubin,Total 0.8 mg/dl (0.2-1.3); Blood Urea Nitrogen 8 mg/dl (7-17); Carbon Dioxide 28 mmol/L (22.0-30.0); Chloride 105 mmol/L (98-107); Creatinine Clearance Estimated 44 mL/min (50-200); Estimated Glomerular Filt Rate 71 ml/min (>60); GFR (African American) 86 ML/MIN (>60); Globulin 2.7 g/dL (1.3-3.2); Glucose 125 mg/dl (74-100); Potassium 3.8 mmoL/L (3.5-5.1); Sodium 141 mmol/L (136-145); Total Protein,Serum 6.6 g/dl (6.3-8.2)
[2020-11-26 12:01] LABS: Troponin I < 0.01 ng/ml (0.00-0.034)
--- NOTE | 2020-11-26 12:08 | PC.NURSE ---
UNABLE TO OBTAIN ORTHOSTATIC VITAL SIGNS AT THIS TIME DUE PATIENT UNABLE TO TOLERATE A SITTING OR STANDING POSITION
[2020-11-26 12:17] LABS: Microscopic, Urine URINE MICROSCOPIC (MICROSCOPIC)
[2020-11-26 12:28] LABS: Appearance,Urine CLEAR (Clear); Bilirubin,Urine Negative (Negative); Blood, Urine Negative (Negative); Color,Urine YELLOW (Yellow); Glucose,Urine (UA) Negative (Negative); Ketones,Urine Negative (Negative); Leukocyte Esterase,Urine Negative (Negative); Nitrate,Urine Negative (Negative); Protein,Urine Negative (Negative); Urobilinogen,Urine 0.2 EU/dl (0.2)
[2020-11-26 12:41] LABS: Bacteria,Urine Trace /lpf; Squamous Epithelial Cell,Urine Occasional #/hpf (0-5)
--- NOTE | 2020-11-26 13:55 | PC.NURSE ---
DR DELAROSA SPEAKING WITH DR ORDOÑEZ
--- NOTE | 2020-11-26 14:38 | PC.NURSE ---
patient tolerated ambulation and stated to Curt LEE he was ready for discharge
--- NOTE | 2020-11-26 14:40 | PC.NURSE ---
Spoke with patient's daughter, Yudi, per patient request. Yudi unable to come get patient but she stated, I will send my daughter inlaw to come get her. Will continue to monitor patient in ED room
--- NOTE | 2020-11-26 14:46 | PC.NURSE ---
patient's grand daughter Gabriella byers, agreed to come to ED for patient transportation
[2020-11-26 15:00] VITALS: BP 129/72; PULSE 77; RESP 16; TEMP 36.7; O2SAT 97
== END 2020-11-26 15:11 | disposition home or self-care (01) ==
PROVIDERS: Emergency Provider Emergency Medicine
DX: R42 Dizziness and giddiness (principal); R51.9 Headache, unspecified; K21.9 Gastro-esophageal reflux disease without esophagitis; E78.5 Hyperlipidemia, unspecified; I10 Essential (primary) hypertension; F41.9 Anxiety disorder, unspecified; Z87.891 Personal history of nicotine dependence; Z79.899 Other long term (current) drug therapy
CPT/HCPCS: 80053; 81001; 84484; 85025; 93005; 99283

== ENCOUNTER → 2020-12-26 14:54 | Outpatient (POV) | payer MEDICARE, OTHER, SELFPAY ==
--- NOTE | 2020-12-26 14:56 | HMH.VVPMSO ---
[facility] PM Virtual Visit SOAP Consent for virtual visit:: With the recent concerns about the COVID-19, we are trying to minimize exposure to you by shifting to telehealth appointments whenever possible. It restricts me from seeing you in person, but the trade off is protecting you during this pandemic. Can you see and hear me okay, and do you consent to this option? If not, I would be happy to see if we can reschedule your appointment in the future, when feasible. Has patient consented to this virtual visit?: Yes Subjective:: Patient is a 70-year-old white female who is following up today via telehealth visit by phone. She is being treated for degenerative disc disease lumbar spine with lumbar radiculopathy symptoms and chronic bilateral knee pain. Patient is managed with Daisetta 5 mg 1 tablet p.o. twice daily and Duexis 1 tablet p.o. 3 times daily as needed. Patient says she is getting great relief with her medications. Her pain is a 4 out of 10. William #[id number] has been reviewed and is appropriate. Drug screen is appropriate. Review of Systems General: No recent weight changes, no fever, no sleep disturbances Respiratory: No cough, no shortness of air, no recurring pulmonary infections Cardiovascular/peripheral vascular: No chest pain, no palpitations, no edema, no shortness of breath Gastrointestinal: No new onset incontinence, normal bowel movements reported Genitourinary: No new onset incontinence Musculoskeletal: Chronic low back pain Psychiatric: [Normal mood/affect] Neurological: [Denies weakness in extremities], [denies balance issues] Objective:: Physical exam General: Alert and oriented x3, Assessment:: Degenerative disc disease lumbar spine with lumbar radiculopathy symptoms Plan:: We will refill the patient's Daisetta 5 mg 1 tablet p.o. daily. We will also continue the patient on Duexis 1 tablet p.o. 3 times daily. We will give the patient a month medication see her back in the clinic at her next visit. William #[id number] has been reviewed and is appropriate. Morphine equivalent is 5. Drug screen appropriate. Risks and benefits of the medication have been explained in detail to the patient. The patient has been advised to consult with his/her primary care provider and pharmacist regarding drug-drug interaction of medications currently prescribed. Patient has been prescribed a controlled substance after being counseled on the medication, medication safety, and possible side effects. WILLIAM report has been obtained and reviewed prior to prescription and found to be appropriate. Opioid contract was reviewed and signed by the patient, and that they have agreed to all of the terms set forth by our compliance program. Patient has been instructed to contact the clinic with any concerns before the next appointment. Dr. Navarro has reviewed this note and agrees with this plan of care. This note was dictated using voice recognition software and make contain errors or omissions. Time In:: 14:40 Time Out:: 14:50 [facility] History I have reviewed the patient's past medical history: Yes Medical History: Reports:: Anxiety, Diabetes Mellitus Type 2, Gastroesophageal Reflux Disease(GERD), Hyperlipidemia, Hypertension, Palpitations Denies:: Cancer, Diabetes Mellitus Type 1, Internal Pacemaker, MRSA, Seizures *Have you ever received a pneumonia vaccine?: Yes *Have you received a flu vaccine this season?: Yes Other Medical History: Reports: Arthritis, Cataracts. Denies: Blood Transfusion Reaction Other Surgeries: Yes: Cholecystectomy. No: Pacemaker Amputation: No Fractures: Yes (L knee) - *Social History Smoking Status: Former smoker Tobacco Type: cigarettes #Yrs smoked (if former smoker): 10 Alcohol Intake: never Substance Use Type: denies use *Occupational Status:: retired Housing: house Household Members: none *Travel in the last 8 weeks: None - Psychiatric History Pschychiatric History:: Reports:: Anxiety Family Hx:: No significant
== END ==
PROVIDERS: Visit Provider Clinical Nurse Specialist Family Health
DX: M51.16 Intervertebral disc disorders with radiculopathy, lumbar region (principal)
CPT/HCPCS: 99212; G0463

== ENCOUNTER → 2021-01-30 15:04 | Outpatient (POV) | payer MEDICARE, OTHER, SELFPAY ==
[2021-01-30 15:14] VITALS: BP 119/60; PULSE 70; RESP 18; O2SAT 96; BMI 22.3
--- NOTE | 2021-01-30 15:36 | HMH.PAINSOAP ---
[facility] Pain Management SOAP Note Subjective:: Patient is a 70-year-old white female who presents today for medication refills. Patient is managed for chronic low back pain. The pain does radiate into her lower extremities. She is wearing a back brace today. She says this gives her support and gives her some relief. She rates her pain a 6 out of 10 today. She is managed with [place] 5 mg 1 tablet p.o. daily. She denies any side effects. Patient's William #[id number] has been reviewed and is appropriate. Drug screen is appropriate. Patient says that she has seen Dr. Alejandre and did get undergo bilateral knee injections, however reports she had to go to the emergency room due to hyperglycemia. She says that she will not undergo bilateral injections again. Shortly after that ER visit she says she has to go to the emergency room for vertigo and was started on meclizine. She is reporting to have some worsening low back pain today, but says the that the back brace is given her 30 to 40% relief along with her medication regimen. Review of Systems General: No recent weight changes, no fever, no sleep disturbances Respiratory: No cough, no shortness of air, no recurring pulmonary infections Cardiovascular/peripheral vascular: No chest pain, no palpitations, no edema, no shortness of breath Gastrointestinal: No new onset incontinence, normal bowel movements reported Genitourinary: No new onset incontinence Musculoskeletal: Low back pain with radiation into bilateral lower extremities Psychiatric: [Normal mood/affect] Neurological: [Denies weakness in extremities], [denies balance issues] Objective:: Physical exam General: Alert and oriented x3, no acute distress, pleasant and cooperative Lungs: Respirations even and unlabored, symmetrical chest expansion Eyes: PERRL Musculoskeletal: Flexion and extension of lumbar [spine] somewhat guarded secondary to pain, [antalgic gait noted] Neurological: Speech clear, no gross sensory deficit Assessment:: Degenerative disc disease lumbar spine with lumbar radiculopathy symptoms Plan:: We will refill the patient's [place] 5 mg 1 tablet p.o. daily. Patient does get ibuprofen and Pepcid routinely, but does not need refills on these medications today. We will follow-up with patient in 1 month via telehealth visit due to concerns of Covid exposure. We will see her back in following that visit in the clinic for drug screen. She will have a drug screen today. Risks and benefits of the medication have been explained in detail to the patient. The patient does understand the risk of dependence on the medication when given over a prolonged period. Patient has been advised of risks of oversedation with the prescribed medication. Narcan has been offered to the paitent in the event of oversedation. Patient has been advised that a family member should also be educated regarding administration of Narcan. The patient has been advised to consult with his/her primary care provider and pharmacist regarding drug-drug interaction of medications currently prescribed. Patient has been prescribed a controlled substance after being counseled on the medication, medication safety, and possible side effects. WILLIAM report has been obtained and reviewed prior to prescription and found to be appropriate. Opioid contract was reviewed and signed by the patient, and that they have agreed to all of the terms set forth by our compliance program. Patient has been instructed to contact the clinic with any concerns before the next appointment. Dr. Navarro has reviewed this note and agrees with this plan of care. This note was dictated using voice recognition software and make contain errors or omissions. [facility] History I have reviewed the patient's past medical history: Yes Medical History: Reports:: Anxiety, Diabetes Mellitus Type 2, Gastroesophageal Reflux Disease(GERD), Hyperlipidemia, Hypertension, Palpitations Susan
[2021-01-30 16:20] LABS: Benzodiazepines Screen,Urine Negative ng/ml (<200)
[2021-01-30 16:21] LABS: Amphetamine/Metha Screen,Urine Negative ng/ml (<1000)
[2021-01-30 16:22] LABS: Barbiturates Screen,Urine Negative ng/ml (<200); Cannabinoid Screen,Urine Negative ng/ml (<50)
[2021-01-30 16:23] LABS: Cocaine Screen,Urine Negative ng/ml (<300)
[2021-01-30 16:24] LABS: Methadone Screen,Urine Negative ng/ml (<300); Opiate Screen,Urine Positive ng/ml (<300)
[2021-01-30 16:25] LABS: Phencyclidine Screen,Urine Negative ng/ml (<25)
== END ==
PROVIDERS: Visit Provider Clinical Nurse Specialist Family Health
DX: M51.16 Intervertebral disc disorders with radiculopathy, lumbar region (principal); Z79.891 Long term (current) use of opiate analgesic
CPT/HCPCS: 80305; 99212; G0463

== ENCOUNTER → 2021-02-27 14:13 | Outpatient (POV) | payer MEDICARE, OTHER, SELFPAY ==
--- NOTE | 2021-02-27 19:03 | HMH.VVPMSO ---
[facility] PM Virtual Visit SOAP Consent for virtual visit:: With the recent concerns about the COVID-19, we are trying to minimize exposure to you by shifting to telehealth appointments whenever possible. It restricts me from seeing you in person, but the trade off is protecting you during this pandemic. Can you see and hear me okay, and do you consent to this option? If not, I would be happy to see if we can reschedule your appointment in the future, when feasible. Has patient consented to this virtual visit?: Yes Subjective:: Patient is a 70-year-old white female following up via telehealth visit. She is following up for medication refills. The patient does have chronic low back pain with radiation into bilateral lower extremities. She is managed with [place] 5 mg 1 tablet p.o. daily in our clinic. She gets significant relief with the medication. Patient says she has been on this medication for many years and tolerates the medicine without difficulty. She denies any side effects. [facility] #[id number] has been reviewed and is appropriate. Drug screen is appropriate. Morphine equivalent is 5. Review of Systems General: No recent weight changes, no fever, no sleep disturbances Respiratory: No cough, no shortness of air, no recurring pulmonary infections Cardiovascular/peripheral vascular: No chest pain, no palpitations, no edema, no shortness of breath Gastrointestinal: No new onset incontinence, normal bowel movements reported Genitourinary: No new onset incontinence Musculoskeletal: Low back pain with radiation into bilateral lower extremities Psychiatric: [Normal mood/affect] Neurological: [Denies weakness in extremities], [denies balance issues] Objective:: Physical exam General: Alert and oriented x3, no acute distress, pleasant and cooperative Assessment:: Degenerative disc disease lumbar spine with lumbar radiculopathy symptoms Plan:: We will refill the patient's [place] 5 mg 1 tablet p.o. daily. She will get a month medication will be seen in the clinic in 1 month for further evaluation. Risks and benefits of the medication have been explained in detail to the patient. The patient does understand the risk of dependence on the medication when given over a prolonged period. Patient has been advised of risks of oversedation with the prescribed medication. Narcan has been offered to the paitent in the event of oversedation. Patient has been advised that a family member should also be educated regarding administration of Narcan. The patient has been advised to consult with his/her primary care provider and pharmacist regarding drug-drug interaction of medications currently prescribed. Patient has been prescribed a controlled substance after being counseled on the medication, medication safety, and possible side effects. WILLIAM report has been obtained and reviewed prior to prescription and found to be appropriate. Opioid contract was reviewed and signed by the patient, and that they have agreed to all of the terms set forth by our compliance program. Patient has been instructed to contact the clinic with any concerns before the next appointment. Dr. Navarro has reviewed this note and agrees with this plan of care. This note was dictated using voice recognition software and make contain errors or omissions. Time In:: 14:00 Time Out:: 14:10 [facility] History I have reviewed the patient's past medical history: Yes Medical History: Reports:: Anxiety, Diabetes Mellitus Type 2, Gastroesophageal Reflux Disease(GERD), Hyperlipidemia, Hypertension, Palpitations Denies:: Cancer, Diabetes Mellitus Type 1, Internal Pacemaker, MRSA, Seizures *Have you ever received a pneumonia vaccine?: No *Have you received a flu vaccine this season?: No Other Medical History: Reports: Arthritis, Cataracts. Denies: Blood Transfusion Reaction Other Surgeries: Yes: Cholecystectomy. No: Pacemaker Amputation: No Fractures: Yes (L knee) - *Soci
== END ==
PROVIDERS: Visit Provider Clinical Nurse Specialist Family Health
DX: M51.16 Intervertebral disc disorders with radiculopathy, lumbar region (principal)
CPT/HCPCS: 99212; G0463

== ENCOUNTER → 2021-03-27 14:04 | Outpatient (POV) | payer MEDICARE, OTHER, SELFPAY ==
--- NOTE | 2021-03-27 14:07 | HMH.VVPMSO ---
[facility] PM Virtual Visit SOAP Consent for virtual visit:: With the recent concerns about the COVID-19, we are trying to minimize exposure to you by shifting to telehealth appointments whenever possible. It restricts me from seeing you in person, but the trade off is protecting you during this pandemic. Can you see and hear me okay, and do you consent to this option? If not, I would be happy to see if we can reschedule your appointment in the future, when feasible. Has patient consented to this virtual visit?: Yes Subjective:: Patient is a 70-year-old white female who is following up via telehealth visit by phone. She is having continued low back pain. She does say that the medication gives her significant relief. She says over the last few days, however, her pain has been somewhat worse in the low back area. She says that she does feel is related to weather. She rates her pain a 7 out of 10. She is managed with [place] 5 mg 1 tablet p.o. daily. She denies any side effects and does not need any changes at this time. [facility] #[id number] has been reviewed and is appropriate. Drug screen is appropriate. Morphine equivalent is 5. Review of Systems General: No recent weight changes, no fever, no sleep disturbances Respiratory: No cough, no shortness of air, no recurring pulmonary infections Cardiovascular/peripheral vascular: No chest pain, no palpitations, no edema, no shortness of breath Gastrointestinal: No new onset incontinence, normal bowel movements reported Genitourinary: No new onset incontinence Musculoskeletal: Low back pain Psychiatric: [Normal mood/affect] Neurological: [Denies weakness in extremities], [denies balance issues] Objective:: Physical exam General: Alert and oriented x3, no acute distress, pleasant and cooperative Assessment:: Degenerative disc disease lumbar spine with lumbar radiculopathy symptoms Plan:: We will continue the patient's English 5 mg 1 tablet p.o. daily. We will give her a month medication plan to see her back in the clinic in 1 month for further evaluation. She has been instructed to contact clinic she has any concerns for next morning. Risks and benefits of the medication have been explained in detail to the patient. The patient does understand the risk of dependence on the medication when given over a prolonged period. Patient has been advised of risks of oversedation with the prescribed medication. Narcan has been offered to the [facility] in the event of oversedation. Patient has been advised that a family member should also be educated regarding administration of Narcan. The patient has been advised to consult with his/her primary care provider and pharmacist regarding drug-drug interaction of medications currently prescribed. Patient has been prescribed a controlled substance after being counseled on the medication, medication safety, and possible side effects. WILLIAM report has been obtained and reviewed prior to prescription and found to be appropriate. Opioid contract was reviewed and signed by the patient, and that they have agreed to all of the terms set forth by our compliance program. Patient has been instructed to contact the clinic with any concerns before the next appointment. Dr. Navarro has reviewed this note and agrees with this plan of care. This note was dictated using voice recognition software and make contain errors or omissions. Time In:: 13:50 Time Out:: 14:05 [facility] History I have reviewed the patient's past medical history: Yes Medical History: Reports:: Anxiety, Diabetes Mellitus Type 2, Gastroesophageal Reflux Disease(GERD), Hyperlipidemia, Hypertension, Palpitations Denies:: Cancer, Diabetes Mellitus Type 1, Internal Pacemaker, MRSA, Seizures *Have you ever received a pneumonia vaccine?: No *Have you received a flu vaccine this season?: No Other Medical History: Reports: Arthritis, Cataracts. Denies: Blood Transfusion Reaction Other Surgeries: Y
== END ==
PROVIDERS: Visit Provider Clinical Nurse Specialist Family Health
DX: M51.16 Intervertebral disc disorders with radiculopathy, lumbar region (principal)
CPT/HCPCS: 99212; G0463

== ENCOUNTER → 2021-05-08 14:02 | Outpatient (POV) | payer MEDICARE, OTHER, SELFPAY ==
--- NOTE | 2021-05-08 14:35 | HMH.VVPMSO ---
[facility] PM Virtual Visit SOAP Consent for virtual visit:: With the recent concerns about the COVID-19, we are trying to minimize exposure to you by shifting to telehealth appointments whenever possible. It restricts me from seeing you in person, but the trade off is protecting you during this pandemic. Can you see and hear me okay, and do you consent to this option? If not, I would be happy to see if we can reschedule your appointment in the future, when feasible. Has patient consented to this virtual visit?: Yes Subjective:: Patient is following up via telehealth medicine today. She has transportation issues. She says that the family that does not bring her to the appointments currently has COVID. We do manage her for chronic low back pain. She is managed with [place] 5 mg 1 tablet p.o. daily. She gets significant relief with the medication. She denies any side effects. She rates her pain a 4 out of 10. [facility] #[id number] has been reviewed and is appropriate. Drug screen is appropriate. Morphine equivalent is 5. Review of Systems General: No recent weight changes, no fever, no sleep disturbances Respiratory: No cough, no shortness of air, no recurring pulmonary infections Cardiovascular/peripheral vascular: No chest pain, no palpitations, no edema, no shortness of breath Gastrointestinal: No new onset incontinence, normal bowel movements reported Genitourinary: No new onset incontinence Musculoskeletal: Low back pain with radiation into lower extremities intermittent Psychiatric: [Normal mood/affect] Neurological: [Denies weakness in extremities], [denies balance issues] Objective:: Physical exam General: Alert and oriented x3, no acute distress, pleasant and cooperative Assessment:: Degenerative disc disease lumbar spine with lumbar radiculopathy symptoms Plan:: We will continue the patient's [place] 5 mg 1 tablet p.o. daily. She will get a month medication will be seen back in the clinic in 1 month. Risks and benefits of the medication have been explained in detail to the patient. The patient does understand the risk of dependence on the medication when given over a prolonged period. Patient has been advised of risks of oversedation with the prescribed medication. Narcan has been offered to the paitent in the event of oversedation. Patient has been advised that a family member should also be educated regarding administration of Narcan. The patient has been advised to consult with his/her primary care provider and pharmacist regarding drug-drug interaction of medications currently prescribed. Patient has been prescribed a controlled substance after being counseled on the medication, medication safety, and possible side effects. WILLIAM report has been obtained and reviewed prior to prescription and found to be appropriate. Opioid contract was reviewed and signed by the patient, and that they have agreed to all of the terms set forth by our compliance program. Patient has been instructed to contact the clinic with any concerns before the next appointment. Dr. Navarro has reviewed this note and agrees with this plan of care. This note was dictated using voice recognition software and make contain errors or omissions. Time In:: 14:25 Time Out:: 14:35 [facility] History I have reviewed the patient's past medical history: Yes Medical History: Reports:: Anxiety, Diabetes Mellitus Type 2, Gastroesophageal Reflux Disease(GERD), Hyperlipidemia, Hypertension, Palpitations Denies:: Cancer, Diabetes Mellitus Type 1, Internal Pacemaker, MRSA, Seizures *Have you ever received a pneumonia vaccine?: No *Have you received a flu vaccine this season?: No Other Medical History: Reports: Arthritis, Cataracts. Denies: Blood Transfusion Reaction Other Surgeries: Yes: Cholecystectomy. No: Pacemaker Amputation: No Fractures: Yes (L knee) - *Social History Smoking Status: Former smoker Tobacco Type: cigarettes #Yrs smoked (if form
== END ==
PROVIDERS: Visit Provider Clinical Nurse Specialist Family Health
DX: M51.16 Intervertebral disc disorders with radiculopathy, lumbar region (principal)
CPT/HCPCS: 99212; G0463

== ENCOUNTER → 2021-06-05 14:03 | Outpatient (POV) | payer MEDICARE, OTHER, SELFPAY ==
[2021-06-05 14:24] VITALS: BP 153/95; PULSE 67; RESP 18; O2SAT 96; BMI 27.3
== END ==
PROVIDERS: Visit Provider Anesthesiology Pain Medicine
DX: M51.16 Intervertebral disc disorders with radiculopathy, lumbar region (principal); Z79.891 Long term (current) use of opiate analgesic
CPT/HCPCS: 80305; 80361; 80365; 99212; G0463; G0480

== ENCOUNTER → 2021-06-05 14:34 | Outpatient (CLI) | payer MEDICARE, OTHER, SELFPAY ==
--- NOTE | 2021-06-05 14:57 | HMH.PAINSOAP ---
[facility] Pain Management SOAP Note Subjective:: This patient is a very pleasant 70-year-old white female who presents today for follow-up and medication refills. She is currently being treated for degenerative disease of lumbar spine with lumbar radiculopathy. She is currently prescribed [place] 5 mg 1 tablet daily which she states is adequately managing her chronic pain symptoms for the most part. 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 She denies any adverse effects to this medication. She is requesting refills on her medications today. She rates her pain today as a 6 out of 10. Objective:: General: Alert and oriented x3, no acute distress, pleasant and cooperative Lungs: Resps E/U, symmetric chest expansion Eyes: PERRL Musculoskeletal: limited flexion and extension of the lumbar spine secondary to pain. Deep tendon reflexes were normal in bilateral lower extremities. Motor exam was grossly intact in the bilateral lower extremities, antalgic gait noted. 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 daily #30 for 1 month supply. We will follow-up with this patient in 1 month for reassessment of her chronic pain symptoms and medication refills. [facility] #[id number] and prior drug screens reviewed and appropriate. ORT was performed on the patient and the patient was deemed low risk. [facility] History Medical History: Reports:: Anxiety, Diabetes Mellitus Type 2, Gastroesophageal Reflux Disease(GERD), Hyperlipidemia, Hypertension, Palpitations Denies:: Cancer, Diabetes Mellitus Type 1, Internal Pacemaker, MRSA, Seizures *Have you ever received a pneumonia vaccine?: Yes *Have you received a flu vaccine this season?: Yes Other Medical History: Reports: Arthritis, Cataracts. Denies: Blood Transfusion Reaction Other Surgeries: Yes: Cholecystectomy. No: Pacemaker Amputation: No Fractures: Yes (L knee) - *Social History Smoking Status: Former smoker Tobacco Type: cigarettes #Yrs smoked (if former smoker): 10 Alcohol Intake: never Substance Use Type: denies use *Occupational Status:: unemployed Housing: house Household Members: none *Travel in the last 8 weeks: None - Psychiatric History Pschychiatric History:: Reports:: Anxiety Family Hx:: No significant family history
[2021-06-05 16:53] LABS: Amphetamine/Metha Screen,Urine Negative ng/ml (<1000)
[2021-06-05 16:54] LABS: Barbiturates Screen,Urine Negative ng/ml (<200)
[2021-06-05 16:56] LABS: Benzodiazepines Screen,Urine Negative ng/ml (<200)
[2021-06-05 16:57] LABS: Cannabinoid Screen,Urine Negative ng/ml (<50); Cocaine Screen,Urine Negative ng/ml (<300)
[2021-06-05 16:58] LABS: Methadone Screen,Urine Negative ng/ml (<300)
[2021-06-05 16:59] LABS: Opiate Screen,Urine Positive ng/ml (<300); Phencyclidine Screen,Urine Negative ng/ml (<25)
[2021-06-22 12:48] LABS: Codeine Negative (Cutoff=100); Hydrocodone Positive (.); Hydromorphone Positive (.); Morphine Negative (Cutoff=100); Opiates Positive (.)
== END ==
PROVIDERS: Visit Provider Anesthesiology Pain Medicine
DX: Z79.891 Long term (current) use of opiate analgesic (principal)
CPT/HCPCS: 80305; 80361; 80365; G0480

== ENCOUNTER → 2021-07-03 14:00 | Outpatient (POV) | payer MEDICARE, OTHER, SELFPAY ==
[2021-07-03 14:55] VITALS: BP 114/67; PULSE 63; RESP 20; TEMP 36.3; O2SAT 95; BMI 23.4
--- NOTE | 2021-07-03 15:45 | HMH.PAINSOAP ---
[facility] Pain Management SOAP Note Subjective:: Patient is a pleasant 70-year-old female who is here for medication refill and follow-up. Patient is currently being treated for degenerative disc disease of lumbar spine with lumbar radiculopathy symptoms. Patient is being managed with [place] 5 mg daily and Duexis daily. Patient denies any side effects from the medications. Patient denies any changes to the location and type of pain. Patient states that this is adequately helping manage their pain. Rates pain as 7 out of 10. [facility] number [id number] with an active morphine equivalent 5. Drug screens have been reviewed and appropriate. Review of Systems: General: No recent weight changes, no fever, no sleep disturbances Respiratory: No cough, no shortness of air, no recurring pulmonary infections Cardiovascular/peripheral vascular: No chest pain, no palpitations, no edema, no shortness of breath Gastrointestinal: No new onset incontinence, normal bowel movements reported Genitourinary: No new onset incontinence Musculoskeletal: Low back pain Psychiatric: [Normal mood/affect] Neurological: [Denies weakness in extremities], [denies balance issues] Objective:: Physical Exam: General: Alert and oriented x3, no acute distress, pleasant and cooperative, [on room air] Lungs: Respirations even and unlabored, symmetrical chest expansion Eyes: PERRL Musculoskeletal: Flexion and extension of lumbar [spine] somewhat guarded secondary to pain, [antalgic gait noted] Neurological: Speech clear, no gross sensory deficit Assessment:: Degenerative disc disease of lumbar spine with lumbar radiculopathy Plan:: We will continue the patient's [place] 5 mg daily and Duexis daily. We will provide the patient with 1 month of refills. We would like to see the patient back in 1 month for follow-up and reevaluation of chronic pain syndrome. Patient has been advised of risks of oversedation with the prescribed medication. Narcan has been offered to the patient in the event of oversedation. Patient has been advised that a family member should also be educated regarding administration of Narcan. Patient has been instructed to contact the clinic with any concerns before the next appointment. Dr. Navarro has reviewed this note and agrees with this plan of care. This note was dictated using voice recognition software and make contain errors or omissions. [facility] History Medical History: Reports:: Anxiety, Diabetes Mellitus Type 2, Gastroesophageal Reflux Disease(GERD), Hyperlipidemia, Hypertension, Palpitations Denies:: Cancer, Diabetes Mellitus Type 1, Internal Pacemaker, MRSA, Seizures *Have you ever received a pneumonia vaccine?: Yes *Have you received a flu vaccine this season?: Yes Other Medical History: Reports: Arthritis, Cataracts. Denies: Blood Transfusion Reaction Other Surgeries: Yes: Cholecystectomy. No: Pacemaker Amputation: No Fractures: Yes (L knee) - *Social History Smoking Status: Former smoker Tobacco Type: cigarettes #Yrs smoked (if former smoker): 10 Alcohol Intake: never Substance Use Type: denies use *Occupational Status:: disabled Housing: house Household Members: none *Travel in the last 8 weeks: None - Psychiatric History Pschychiatric History:: Reports:: Anxiety Family Hx:: No significant family history
== END ==
PROVIDERS: Visit Provider Student in an Organized Health Care Education/Training Program
DX: M51.16 Intervertebral disc disorders with radiculopathy, lumbar region (principal)
CPT/HCPCS: 99212; G0463

== ENCOUNTER → 2021-07-31 13:33 | Outpatient (POV) | payer MEDICARE, OTHER, SELFPAY ==
[2021-07-31 13:43] VITALS: BP 120/63; PULSE 72; RESP 18; TEMP 36.6; O2SAT 95; BMI 23.4
--- NOTE | 2021-07-31 16:00 | P.CONS_ITS ---
[facility] Pain Management SOAP Note Subjective:: Patient is a pleasant 70-year-old female who is here for medication refill and follow-up. Patient is currently being treated for degenerative disc disease of lumbar spine lumbar radiculopathy symptoms. Patient is being managed with [place] 5 mg daily and Duexis daily. Patient denies any side effects from the medications. Patient denies any changes to the location and type of pain. Patient states that this is adequately helping manage their pain. Rates pain as 8 out of 10. [facility] number [id number] with an active morphine equivalent 5. Drug screens have been reviewed and appropriate. Patient also has a Nuvectra spinal cord stimulator that is still giving her relief. Review of Systems: General: No recent weight changes, no fever, no sleep disturbances Respiratory: No cough, no shortness of air, no recurring pulmonary infections Cardiovascular/peripheral vascular: No chest pain, no palpitations, no edema, no shortness of breath Gastrointestinal: No new onset incontinence, normal bowel movements reported Genitourinary: No new onset incontinence Musculoskeletal: Low back pain Psychiatric: [Normal mood/affect] Neurological: [Denies weakness in extremities], [denies balance issues] Objective:: Physical Exam: General: Alert and oriented x3, no acute distress, pleasant and cooperative, [on room air] Lungs: Respirations even and unlabored, symmetrical chest expansion Eyes: PERRL Musculoskeletal: Flexion and extension of lumbar [spine] somewhat guarded se condary to pain, [antalgic gait noted] Neurological: Speech clear, no gross sensory deficit Assessment:: Degenerative disc disease of lumbar spine with lung radiculopathy symptoms Plan:: We will continue the patient's [place] 5 mg daily and Duexis. We will provide the patient with 1 month of refills. We would like to see the patient back in 1 month for follow-up and reevaluation of chronic pain syndrome. Patient has been advised of risks of oversedation with the prescribed medication. Narcan has been offered to the patient in the event of oversedation. Patient has been advised that a family member should also be educated regarding administration of Narcan. Patient has been instructed to contact the clinic with any concerns before the next appointment. Dr. Navarro has reviewed this note and agrees with this plan of care. This note was dictated using voice recognition software and make contain errors or omissions. [facility] History Medical History: Reports:: Anxiety, Diabetes Mellitus Type 2, Gastroesophageal Reflux Disease(GERD), Hyperlipidemia, Hypertension, Palpitations Denies:: Cancer, Diabetes Mellitus Type 1, Internal Pacemaker, MRSA, Seizures *Have you ever received a pneumonia vaccine?: Yes *Have you received a flu vaccine this season?: Yes Other Medical History: Reports: Arthritis, Cataracts. Denies: Blood Transfusion Reaction Other Surgeries: Yes: Cholecystectomy. No: Pacemaker Amputation: No Fractures: Yes (L knee) - *Social History Smoking Status: Former smoker Tobacco Type: cigarettes #Yrs smoked (if former smoker): 10 Alcohol Intake: never Substance Use Type: denies use *Occupational Status:: retired Housing: house Household Members: none *Travel in the last 8 weeks: None - Psychiatric History Pschychiatric History:: Reports:: Anxiety Family Hx:: No significant family history
== END ==
PROVIDERS: Visit Provider Student in an Organized Health Care Education/Training Program
DX: M51.16 Intervertebral disc disorders with radiculopathy, lumbar region (principal)
CPT/HCPCS: 99212; G0463

== ENCOUNTER → 2021-09-04 14:23 | Outpatient (POV) | payer MEDICARE, OTHER, SELFPAY ==
[2021-09-04 14:53] VITALS: BP 167/80; PULSE 69; RESP 18; TEMP 36.7; O2SAT 96; BMI 23.4
--- NOTE | 2021-09-04 15:38 | HMH.PAINSOAP ---
[facility] Pain Management SOAP Note Subjective:: Patient is a pleasant 70-year-old female who is here for medication refill and follow-up. Patient is currently being treated for degenerative disc disease of lumbar spine with lumbar radiculopathy symptoms, bilateral knee pain. Patient is being managed with [place] 5 mg daily and Duexis daily. Patient denies any side effects from the medications. Patient denies any changes to the location and type of pain. Patient states that this is adequately helping manage their pain. Rates pain as 2 out of 10. [facility] number [phone] with an active morphine equivalent of 5 . Drug screens have been reviewed and appropriate. Patient presents today with worsening bilateral knee pain. She has had intra-articular steroid injections that provided significant relief. She wants to know if she can schedule a right knee intra-articular injections. Patient also says that in the past, she was sent to the ER after bilateral intra-articular steroid injections speakers her sugar increased significantly. She wants to make sure that we will only do 1 joint injection. Review of Systems: General: No recent weight changes, no fever, no sleep disturbances Respiratory: No cough, no shortness of air, no recurring pulmonary infections Cardiovascular/peripheral vascular: No chest pain, no palpitations, no edema, no shortness of breath Gastrointestinal: No new onset incontinence, normal bowel movements reported Genitourinary: No new onset incontinence Musculoskeletal: Low back pain, bilateral knee pain Psychiatric: [Normal mood/affect] Neurological: [Denies weakness in extremities], [denies balance issues] Objective:: Physical Exam: General: Alert and oriented x3, no acute distress, pleasant and cooperative Lungs: Respirations even and unlabored, symmetrical chest expansion Eyes: PERRL Musculoskeletal: Flexion and extension of lumbar [spine] somewhat guarded secondary to pain, [antalgic gait noted]; limited range of motion of bilateral knees secondary to pain Neurological: Speech clear, no gross sensory deficit Assessment:: Degenerative disc disease of the lumbar spine with lumbar radiculopathy symptoms, osteoarthritis of bilateral knees Plan:: We will continue the patient's [place] 5 mg daily and Duexis daily. We will provide the patient with 1 month of refills. We would like to see the patient back in 1 month for follow-up and reevaluation of chronic pain syndrome. I will also schedule the patient for a right intra-articular steroid injection. We will closely monitor her sugar during this injection since she had to be sent to the ER after her bilateral intra-articular steroid injection. Patient has been advised of risks of oversedation with the prescribed medication. Narcan has been offered to the patient in the event of oversedation. Patient has been advised that a family member should also be educated regarding administration of Narcan. Patient has been instructed to contact the clinic with any concerns before the next appointment. Dr. Navarro has reviewed this note and agrees with this plan of care. This note was dictated using voice recognition software and make contain errors or omissions. [facility] History Medical History: Reports:: Anxiety, Diabetes Mellitus Type 2, Gastroesophageal Reflux Disease(GERD), Hyperlipidemia, Hypertension, Palpitations Denies:: Cancer, Diabetes Mellitus Type 1, Internal Pacemaker, MRSA, Seizures *Have you ever received a pneumonia vaccine?: Yes *Have you received a flu vaccine this season?: Yes Other Medical History: Reports: Arthritis, Cataracts. Denies: Blood Transfusion Reaction Other Surgeries: Yes: Cholecystectomy. No: Pacemaker Amputation: No Fractures: Yes (L knee) - *Social History Smoking Status: Former smoker Tobacco Type: cigarettes #Yrs smoked (if former smoker): 10 Alcohol Intake: never Substance Use Type: denies use *Occupational Status:: retired Housing: house Household [facility]
== END ==
PROVIDERS: Visit Provider Student in an Organized Health Care Education/Training Program
DX: M51.16 Intervertebral disc disorders with radiculopathy, lumbar region (principal); M17.0 Bilateral primary osteoarthritis of knee
CPT/HCPCS: 99212; G0463

== ENCOUNTER 2021-09-26 14:26 | Day surgery (SDC) | payer MEDICARE, OTHER, SELFPAY ==
[2021-09-26 14:44] VITALS: BP 145/67; PULSE 68; RESP 18; TEMP 36.4; O2SAT 98; BMI 23.4
[2021-09-26 14:50] VITALS: BP 132/58; PULSE 75; RESP 20
--- NOTE | 2021-09-26 14:53 | HMH.PMPROC ---
- Procedure Date: 09/26/21 Time: 14:53 Anesthesiologist:: Umer Gaytan CRNA Complications:: None Pre-procedure Diagnosis:: Degenerative osteoarthritis right knee Post-procedure Diagnosis:: Same Indications for Procedure:: Very pleasant 70-year-old female that comes today for right intra-articular knee injection. Patient has had knee injections in the past with significant provement. She rates her knee pain 8/10. Patient reports pain increases when walking for any distance. She describes the knee pain as constant dull and achy. Procedure Details:: Details of the procedure were explained to the patient. The patient taken the procedure room placed in the sitting position. The area of the right knee was cleansed using chlorhexidine as a cleansing solution. Using a 22-gauge inch and half needle the right knee was accessed using the lateral condylar notch. The knee joint was accessed with a ease. 3 cc 1% lidocaine +0.25% Marcaine 3 cc of and 40 mg Depo-Medrol was injected. Patient tolerated procedure without difficulty. There are no complications. Plan and Disposition:: Patient was discharged without incident.
[2021-09-26 14:58] VITALS: BP 125/67; PULSE 65; RESP 18; O2SAT 98
== END 2021-09-26 14:58 | disposition home or self-care (01) ==
LOC: SC.PAINP 14:27
PROVIDERS: Visit Provider Nurse Anesthetist, Certified Registered
DX: M17.11 Unilateral primary osteoarthritis, right knee (principal); E11.9 Type 2 diabetes mellitus without complications; K21.9 Gastro-esophageal reflux disease without esophagitis; I10 Essential (primary) hypertension; E78.5 Hyperlipidemia, unspecified; F41.9 Anxiety disorder, unspecified
CPT/HCPCS: 20610; J1040

== ENCOUNTER → 2021-10-23 13:53 | Outpatient (POV) | payer MEDICARE, OTHER, SELFPAY ==
[2021-10-23 14:08] VITALS: BP 115/78; PULSE 69; RESP 20; TEMP 36.3; O2SAT 98
[2021-10-23 15:04] LABS: Amphetamine/Metha Screen,Urine Negative ng/ml (<1000); Barbiturates Screen,Urine Negative ng/ml (<200)
[2021-10-23 15:05] LABS: Benzodiazepines Screen,Urine Negative ng/ml (<200)
[2021-10-23 15:06] LABS: Opiate Screen,Urine Negative ng/ml (<300)
[2021-10-23 15:07] LABS: Phencyclidine Screen,Urine Negative ng/ml (<25)
[2021-10-23 15:08] LABS: Cannabinoid Screen,Urine Negative ng/ml (<50); Cocaine Screen,Urine Negative ng/ml (<300)
[2021-10-23 15:09] LABS: Methadone Screen,Urine Negative ng/ml (<300)
--- NOTE | 2021-10-25 08:40 | HMH.PAINSOAP ---
[facility] Pain Management SOAP Note Subjective:: Patient is a pleasant 71-year-old female who presents today for follow-up after a right intra-articular knee injection. We have been managing this patient for osteoarthritis of bilateral knees, degenerative disc disease of lumbar spine with lumbar radiculopathy symptoms. After the injection, patient had significant relief of 80 to 90%. She states that she typically gets 3 to 4 months of relief with each injection. Today, patient states that she wants to schedule her right knee injection. She has stated before that she likes to get her injection 1 at a time because she is sensitive to the steroid. In the past, she had bilateral intraarticular knee injection that raised her blood sugar and she ended up in the ED. she rates her pain today as 4 out of 10. We are also managing this patient with [place] 5 mg daily and Duexis. Denies any side effects from these medications. She is stable in these medications. [place] [phone] with an active morphine equivalent of 0. Review of Systems: General: No recent weight changes, no fever, no sleep disturbances Respiratory: No cough, no shortness of air, no recurring pulmonary infections Cardiovascular/peripheral vascular: No chest pain, no palpitations, no edema, no shortness of breath Gastrointestinal: No new onset incontinence, normal bowel movements reported Genitourinary: No new onset incontinence Musculoskeletal: Left knee pain, improving right knee pain Psychiatric: [Normal mood/affect] Neurological: [Denies weakness in extremities], [denies balance issues] Objective:: Physical Exam: General: Alert and oriented x3, no acute distress, pleasant and cooperative Lungs: Respirations even and unlabored, symmetrical chest expansion Eyes: PERRL Musculoskeletal: Flexion and extension of lumbar [spine] somewhat guarded secondary to pain, [antalgic gait noted]; limited range of motion of bilateral knees secondary to pain Neurological: Speech clear, no gross sensory deficit Assessment:: Degenerative disc disease of lumbar spine with lumbar radiculopathy symptoms, osteoarthritis of bilateral knees Plan:: Patient had significant relief after her right intra-articular knee injection. She states that she is ready to schedule her left knee injection. She has been evaluated by orthopedics in the past and she is not interested in any surgical intervention at this time. We will schedule her for a left intra-articular knee injection. She reiterated at this visit that she wants the 40mg of steroid and not 80mg. Patient has been instructed to contact the clinic with any concerns before the next appointment. Dr. Navarro has reviewed this note and agrees with this plan of care. This note was dictated using voice recognition software and make contain errors or omissions. [facility] History Medical History: Reports:: Anxiety, Diabetes Mellitus Type 2, Gastroesophageal Reflux Disease(GERD), Hyperlipidemia, Hypertension, Palpitations Denies:: Cancer, Diabetes Mellitus Type 1, Internal Pacemaker, MRSA, Seizures *Have you ever received a pneumonia vaccine?: Yes *Have you received a flu vaccine this season?: Yes Other Medical History: Reports: Arthritis, Cataracts. Denies: Blood Transfusion Reaction Other Surgeries: Yes: Cholecystectomy. No: Pacemaker Amputation: No Fractures: Yes (L knee) - *Social History Smoking Status: Never smoker Tobacco Type: cigarettes #Yrs smoked (if former smoker): 10 Alcohol Intake: never Substance Use Type: denies use *Occupational Status:: other Housing: house Household Members: none *Travel in the last 8 weeks: None - Psychiatric History Pschychiatric History:: Reports:: Anxiety Family Hx:: No significant family history
[2021-10-29 10:12] LABS: Opiates Negative (Cutoff=100)
== END ==
PROVIDERS: Visit Provider Student in an Organized Health Care Education/Training Program
DX: M51.16 Intervertebral disc disorders with radiculopathy, lumbar region (principal); Z79.891 Long term (current) use of opiate analgesic; M17.0 Bilateral primary osteoarthritis of knee
CPT/HCPCS: 80305; 80361; 80365; 99212; G0463; G0480

== ENCOUNTER 2021-11-16 13:03 | Emergency (ER) | payer MEDICARE, OTHER, SELFPAY ==
[2021-11-16] VITALS (13 sets, daily range): BP systolic 90–135; BP diastolic 43–81; PULSE 56–76; RESP 14–21; TEMP 36.5–36.7; O2SAT 94–98; BMI 22.6
--- NOTE | 2021-11-16 13:10 | XR_ITS ---
PROCEDURE INFORMATION: Exam: XR Chest Exam date and time: 11/16/2021 1:28 PM Age: 71 years old Clinical indication: Chest wall pain; Additional info: Cp TECHNIQUE: Imaging protocol: Radiologic exam of the chest. Views: 1 view. COMPARISON: CR Chest 09/09/2018 11:24 AM FINDINGS: Tubes, catheters and devices: Intrathecal catheter is noted to the skull base. Lungs: Low lung volumes. No focal consolidation. Pleural spaces: Unremarkable. No pleural effusion. No pneumothorax. Heart/Mediastinum: Unremarkable. No cardiomegaly. Bones/joints: Unremarkable. Gastrointestinal tract: Gaseous distention of bowel with elevation of the left hemidiaphragm. IMPRESSION: 1. Gaseous distention of bowel with elevation of the left hemidiaphragm. 2. Low lung volumes. No focal consolidation.
--- NOTE | 2021-11-16 13:18 | PC.NURSE ---
rad in room
--- NOTE | 2021-11-16 13:22 | PC.NURSE ---
pt wanted me to call her grandson and let him know she was here, called the number listed her grandson answered and advsed him his grandmother was here and when she got dicharged she would need a ride home
--- NOTE | 2021-11-16 13:43 | HMH.EDGENADL ---
ED Disposition Clinical Impression: Atypical chest pain UTI (urinary tract infection) Qualifiers: Urinary tract infection type: site unspecified Hematuria presence: without hematuria Qualified Code(s): N39.0 - Urinary tract infection, site not specified Disposition: Home, Self-Care Condition on Discharge: Good Additional Instructions: Follow-up with your primary care physician for chest pain seen in the emergency department and please return to the emergency department with any new or worsening symptoms. You were found to have urinary tract infection today, please take cefdinir as prescribed. Please also follow-up with your primary care physician for repeat potassium check. Return to the emergency department with worsening chest pain, shortness of breath, fainting or any other new or concerning symptoms. Prescriptions: Cefdinir [Omnicef 300mg Capsule] 300 mg PO BID #14 cap Transmission Status: Pending to [facility] Referrals: Provider,Referral, [Primary Care Provider] - - Critical Care Critical Care Time: No Attestation: On 11/16/21, the high probability of a clinically significant, sudden or life threatening deterioration of the following system(s) required my full and direct attention, intervention and personal management. The time I documented below is in addition to time spent performing reported procedures but includes the following listed in this critical care notation. Medical Decision Making - [place] Inquiry Pt receiving controlled substance: No Vital Signs: 11/16/21 13:01 11/16/21 13:30 11/16/21 14:00 Temperature 97.7 F Temperature Source Oral Pulse Rate 58 L 62 Pulse Rate [Radial] 65 Respiratory Rate 16 15 14 Blood Pressure 121/73 108/72 L Blood Pressure [Right Radial Artery] 134/81 Blood Pressure Mean 91 85 Blood Pressure Mean [Right Radial Artery] 98 Blood Pressure Position [Right Radial Artery] Sitting 02 Sat by Pulse Oximetry 98 95 94 L Oxygen Delivery Method Room Air 11/16/21 15:00 11/16/21 15:30 11/16/21 16:28 Temperature Temperature Source Pulse Rate 56 L 58 L 69 Pulse Rate [Radial] Respiratory Rate 16 20 15 Blood Pressure 116/68 99/63 L 117/76 Blood Pressure [Right Radial Artery] Blood Pressure Mean 87 76 89 Blood Pressure Mean [Right Radial Artery] Blood Pressure Position [Right Radial Artery] 02 Sat by Pulse Oximetry 96 96 97 Oxygen Delivery Method 11/16/21 16:32 11/16/21 17:00 11/16/21 17:30 Temperature Temperature Source Pulse Rate 62 58 L 70 Pulse Rate [Radial] Respiratory Rate 17 18 15 Blood Pressure 135/77 108/73 L 121/75 Blood Pressure [Right Radial Artery] Blood Pressure Mean 96 90 87 Blood Pressure Mean [Right Radial Artery] Blood Pressure Position [Right Radial Artery] 02 Sat by Pulse Oximetry 96 96 97 Oxygen Delivery Method 11/16/21 18:01 11/16/21 18:31 11/16/21 19:12 Temperature Temperature Source Pulse Rate 76 69 Pulse Rate [Radial] Respiratory Rate 21 19 Blood Pressure 90/58 L 99/43 L 107/67 L Blood Pressure [Right Radial Artery] Blood Pressure Mean 74 74 Blood Pressure Mean [Right Radial Artery] Blood Pressure Position [Right Radial Artery] 02 Sat by Pulse Oximetry 97 97 Oxygen Delivery Method - Lab Data Lab Results 11/16/21 16:15: WBC 8.7, RBC 5.09, Hgb 12.6, Hct 40.0, MCV 78.6 L, MCH 24.8 L, MCHC 31.5 L, RDW 15.5, Plt Count 255, MPV 9.7, Neut % (Auto) 54.0, Lymph % (Auto) 35.9, [place] % (Auto) 5.0, Eos % (Auto) 4.2, Baso % (Auto) 1.0, Neut # (Auto) 4.7, Lymph # (Auto) 3.1, [place] # (Auto) 0.4, Eos # (Auto) 0.4, Baso # (Auto) 0.1 11/16/21 16:15: Sodium 137, Potassium 3.0 L, Chloride 100, Carbon Dioxide 29, Anion Gap 11.0, BUN 12, Creatinine 0.80, Estimated Creat Clear 44, Estimated GFR 71, Est GFR ( Amer) 85, Glucose 123 H, Calcium 8.9, Total Bilirubin 0.3, AST 73 H, ALT 48, Alkaline Phosphatase 110, Troponin I < 0.01, Total Protein 6.9, [place]
--- NOTE | 2021-11-16 15:53 | ECG_ITS ---
APPROVED REPORT Exam: Resting ECG HR:59 bpm ECG Measurements Heart Rate 59 AXES IL 141 P 12 QRSd 78 QRS 0 QT 417 T 2 QTc 417 Conclusion SINUS BRADYCARDIA Borderline LAD new anterior lead ST/TW changes ABNORMAL ECG UNCONFIRMED REPORT Electronically signed by : Robert Zayas MD 11/17/2021 14:01:37
[2021-11-16 16:43] LABS: Microscopic, Urine URINE MICROSCOPIC (MICROSCOPIC)
--- NOTE | 2021-11-16 16:45 | PC.NURSE ---
2 nd floor here to take pt upstairs
[2021-11-16 16:47] LABS: Basophils # 0.1 K/mm3 (0-0.2); Eosinophils # 0.4 K/mm3 (0.0-0.4); Eosinophils % 4.2 % (0.1-12.0); Hemoglobin 12.6 g/dL (12.2-16.2); Lymphocytes # 3.1 K/mm3 (0.7-4.5); Lymphocytes % 35.9 % (10-50); Mean Corpuscular HGB Conc 31.5 g/dL (31.8-35.4); Mean Corpuscular Hemoglobin 24.8 pg (27.0-31.2); Mean Corpuscular Volume 78.6 fl (81-99); Mean Platelet Volume 9.7 fl (7.4-10.4); Monocytes # 0.4 K/mm3 (0.1-1.0); Neutrophils # 4.7 K/mm3 (1.8-7.8); Platelet Count 255 K/mm3 (142-424); Red Blood Count 5.09 M/mm3 (4.20-5.40); Red Cell Distribution Width 15.5 % (11.5-17.5); White Blood Count 8.7 K/mm3 (4.8-10.8)
[2021-11-16 16:49] LABS: Appearance,Urine CLEAR (Clear); Bilirubin,Urine Negative (Negative); Blood, Urine Negative (Negative); Color,Urine YELLOW (Yellow); Glucose,Urine (UA) Negative (Negative); Ketones,Urine Negative (Negative); Leukocyte Esterase,Urine 1+ (Negative); Nitrate,Urine Negative (Negative); PH,Urine 6.5 (5.0-8.5); Protein,Urine Negative (Negative); Urobilinogen,Urine 0.2 EU/dl (0.2)
[2021-11-16 17:06] LABS: Bacteria,Urine 1+ /lpf; RBC,Urine Occasional #/hpf (0-3)
[2021-11-16 17:10] LABS: Alanine Aminotransferase 48 U/L (12-78); Albumin Level 3.9 g/dl (3.5-5.0); Albumin/Globulin Ratio 1.3 (1.1-1.8); Alkaline Phosphatase 110 U/L (38-126); Aspartate Amino Transferase 73 U/L (14-36); Bilirubin,Total 0.3 mg/dl (0.2-1.3); Blood Urea Nitrogen 12 mg/dl (7-17); Calcium 8.9 mg/dl (8.4-10.2); Carbon Dioxide 29 mmol/L (22.0-30.0); Chloride 100 mmol/L (98-107); Creatinine Clearance Estimated 44 mL/min (50-200); Estimated Glomerular Filt Rate 71 ml/min (>60); GFR (African American) 85 ML/MIN (>60); Glucose 123 mg/dl (74-100); Sodium 137 mmol/L (136-145); Total Protein,Serum 6.9 g/dl (6.3-8.2)
[2021-11-16 17:27] LABS: Troponin I < 0.01 ng/ml (0.00-0.034)
--- NOTE | 2021-11-16 17:52 | PC.NURSE ---
called dietary for a diabetic tray
--- NOTE | 2021-11-16 19:31 | PC.NURSE ---
PC patients grandson, he will be on his way to pick her up
[2021-11-16 19:39] LABS: Troponin I < 0.01 ng/ml (0.00-0.034)
--- NOTE | 2021-11-16 20:02 | PC.NURSE ---
pt requested a bag of baked lays. obtained from second floor. no further complaints at this time.
== END 2021-11-16 20:35 | disposition home or self-care (01) ==
PROVIDERS: Emergency Provider Student in an Organized Health Care Education/Training Program
DX: R07.9 Chest pain, unspecified (principal); N39.0 Urinary tract infection, site not specified; K21.9 Gastro-esophageal reflux disease without esophagitis; I10 Essential (primary) hypertension; Z20.822 Contact with and (suspected) exposure to COVID-19
CPT/HCPCS: 36415; 71045; 80053; 81001; 84484; 85025; 87086; 93005; 99284; C9803; U0003; U0005

== ENCOUNTER 2021-11-25 11:39 | Emergency (ER) | payer MEDICARE, OTHER, SELFPAY ==
[2021-11-25 11:34] VITALS: BP 145/66; PULSE 61; RESP 18; TEMP 37.1; O2SAT 98; BMI 21.9
--- NOTE | 2021-11-25 11:45 | ECG_ITS ---
APPROVED REPORT Exam: Resting ECG HR:58 bpm ECG Measurements Heart Rate 58 AXES IL 142 P 35 QRSd 76 QRS 23 QT 417 T 36 QTc 415 Conclusion SINUS BRADYCARDIA BORDERLINE ECG UNCONFIRMED REPORT Electronically signed by : Robert Zayas MD 11/25/2021 13:48:49
[2021-11-25 12:00] VITALS: BP 126/76; PULSE 67; O2SAT 96
--- NOTE | 2021-11-25 12:12 | XR_ITS ---
FINAL REPORT CLINICAL HISTORY: sob COMPARISON: 11/16/2021 FINDINGS: A single portable view of the chest was obtained. The heart size and pulmonary vascularity are within normal limits. The mediastinum is within normal limits. There are low lung volumes. There is mild left lung base atelectasis. A spinal stimulator is present with the tip extending into the lower lumbar spine. The bony thorax is intact. IMPRESSION: Mild left lung base atelectasis. Reviewed, Interpreted and Dictated by Steve Diaz III, MD Transcribed by Nancy Blanca Authenticated and [facility]
--- NOTE | 2021-11-25 12:16 | HMH.EDGENADL ---
ED Disposition Clinical Impression: Viral syndrome Disposition: Home, Self-Care Condition on Discharge: Good Additional Instructions: At this time was felt you are safe to be discharged from the emergency department. If new or worsening symptoms please do not hesitate to return for continued evaluation. Please follow-up with your family doctor within 5 days for continued evaluation. Referrals: Provider,Referral, [Primary Care Provider] - - Critical Care Critical Care Time: No Attestation: On 11/25/21, the high probability of a clinically significant, sudden or life threatening deterioration of the following system(s) required my full and direct attention, intervention and personal management. The time I documented below is in addition to time spent performing reported procedures but includes the following listed in this critical care notation. Medical Decision Making - [place] Inquiry Pt receiving controlled substance: No Vital Signs: 11/25/21 11:34 11/25/21 12:00 11/25/21 13:00 Temperature 98.7 F Temperature Source Oral Pulse Rate 67 65 Pulse Rate [Radial] 61 Respiratory Rate 18 17 Blood Pressure 126/76 127/77 Blood Pressure [Right Arm] 145/66 H Blood Pressure Mean 103 103 Blood Pressure Mean [Right Arm] 92 Blood Pressure Position [Right Arm] Sitting 02 Sat by Pulse Oximetry 98 96 98 Oxygen Delivery Method Room Air Room Air - Lab Data Lab Results 11/25/21 12:32: WBC 7.2, RBC 4.68, Hgb 11.9 L, Hct 37.3, MCV 79.7 L, MCH 25.3 L, MCHC 31.8, RDW 15.9, Plt Count 248, MPV 10.1, Neut % (Auto) 57.0, Lymph % (Auto) 29.9, [place] % (Auto) 5.9, Eos % (Auto) 5.7, Baso % (Auto) 1.5, Neut # (Auto) 4.1, Lymph # (Auto) 2.2, [place] # (Auto) 0.4, Eos # (Auto) 0.4, Baso # (Auto) 0.1 11/25/21 12:32: Troponin I < 0.01, C-Reactive Protein 2.0 11/25/21 12:32: Sodium 138, Potassium 3.5, Chloride 104, Carbon Dioxide 26, Anion Gap 11.5, BUN 15, Creatinine 0.90, Estimated Creat Clear 42, Estimated GFR 62, Est GFR ( Amer) 74, Glucose 148 H, Calcium 9.1 Result diagrams: 11/25/21 12:32 11/25/21 12:32 Orders (Tests/Meds): ED MEDICATIONS Discontinued Medications Generic Name Dose Route Start Last Admin Trade Name Vikas PRN Reason Stop Dose Admin Ondansetron HCl 4 mg 11/25/21 12:15 11/25/21 12:35 Ondansetron 4mg Odt SL 11/25/21 12:16 4 mg ONCE ONE Administration ORDERS Category Date Time Status Rapid PCR Covid and Flu A/B Stat Lab 11/25/21 12:12 Ordered Troponin I Q3H Lab 11/25/21 15:15 Ordered Troponin I Q3H Lab 11/25/21 18:15 Ordered - ECG Data Tracing #1 Independently interpreted by me, the rate is 58, rhythm is regular, axis is normal, QTC 415, no significant ST elevation in anatomical contiguous leads. Medical Decision Narrative: In summary this is a 71-year-old female with past medical history described low presents emergency department for evaluation of shortness of breath. Patient is hemodynamically stable nontoxic-appearing upon arrival. Differential diagnosis includes COVID-19, atypical ACS, pneumonia, among others. Work-up will be conducted with hematologic labs, chest x-ray, EKG, troponin. Initial interventions includes Zofran. Work-up is reviewed by me, hematologic labs are nonactionable, EKG shows no signs of ischemia, initial troponin is undetectably low. Chest x-ray shows no acute lobar opacities or large pneumothorax. Upon repeat evaluation patient was tolerating p.o. at bedside, remained hemodynamically stable. Given that there is no concern for true ACS second troponin will be deferred as patient only has shortness of breath and cough symptoms are likely consistent with viral syndrome. Patient was given return precautions and verbalized understanding. General Adult HPI - General Chief complaint: Shortness of Breath/Dyspnea Stated complaint: SOB, nausea Time Seen by Provider: 11/25/21 12:16 Mode of Arrival: EMS Limitations: No Limitations
--- NOTE | 2021-11-25 12:52 | PC.NURSE ---
pt given ice water and crackers; call light is within reach. She has no other needs at this time.
[2021-11-25 12:54] LABS: Basophils # 0.1 K/mm3 (0-0.2); Basophils % 1.5 % (0.1-2.0); Eosinophils # 0.4 K/mm3 (0.0-0.4); Eosinophils % 5.7 % (0.1-12.0); Hematocrit 37.3 % (37.0-47.0); Hemoglobin 11.9 g/dL (12.2-16.2); Lymphocytes # 2.2 K/mm3 (0.7-4.5); Lymphocytes % 29.9 % (10-50); Mean Corpuscular HGB Conc 31.8 g/dL (31.8-35.4); Mean Corpuscular Hemoglobin 25.3 pg (27.0-31.2); Mean Corpuscular Volume 79.7 fl (81-99); Mean Platelet Volume 10.1 fl (7.4-10.4); Monocytes # 0.4 K/mm3 (0.1-1.0); Monocytes % 5.9 % (1.7-9.3); Neutrophils # 4.1 K/mm3 (1.8-7.8); Platelet Count 248 K/mm3 (142-424); Red Blood Count 4.68 M/mm3 (4.20-5.40); Red Cell Distribution Width 15.9 % (11.5-17.5); White Blood Count 7.2 K/mm3 (4.8-10.8)
[2021-11-25 13:00] VITALS: BP 127/77; PULSE 65; RESP 17; O2SAT 98
[2021-11-25 13:05] LABS: Chloride 104 mmol/L (98-107); Sodium 138 mmol/L (136-145)
[2021-11-25 13:06] LABS: Potassium 3.5 mmoL/L (3.5-5.1)
[2021-11-25 13:08] LABS: Anion Gap 11.5 mEq/L (5-15); Blood Urea Nitrogen 15 mg/dl (7-17); Carbon Dioxide 26 mmol/L (22.0-30.0); Creatinine Clearance Estimated 42 mL/min (50-200); Estimated Glomerular Filt Rate 62 ml/min (>60); GFR (African American) 74 ML/MIN (>60)
[2021-11-25 13:09] LABS: Calcium 9.1 mg/dl (8.4-10.2); Glucose 148 mg/dl (74-100)
--- NOTE | 2021-11-25 13:29 | PC.NURSE ---
Provided pt with warm blankets at this time. Pt has no other needs.
[2021-11-25 13:40] LABS: Troponin I < 0.01 ng/ml (0.00-0.034)
--- NOTE | 2021-11-25 13:51 | PC.NURSE ---
Spoke with daughter on phone and updated her on POC and results.
--- NOTE | 2021-11-25 14:04 | PC.NURSE ---
Called and spoke with grandson regarding patient being discharged and needing a ride home, he reports he is unable to come but his will be able to come and pick her up and he will reach out to her.
[2021-11-25 14:23] LABS: Coronavirus 19, PCR Not Detected (NotDetected); Influenza A, PCR Not Detected (NotDetected); Influenza B, PCR Not Detected (NotDetected)
[2021-11-25 14:26] VITALS: BP 131/74; PULSE 78; RESP 16; TEMP 36.6; O2SAT 98
== END 2021-11-25 14:30 | disposition home or self-care (01) ==
PROVIDERS: Emergency Provider Emergency Medicine
DX: B34.9 Viral infection, unspecified (principal); N39.0 Urinary tract infection, site not specified; R06.02 Shortness of breath; R00.2 Palpitations; R11.0 Nausea; Z20.822 Contact with and (suspected) exposure to COVID-19; I10 Essential (primary) hypertension; I34.1 Nonrheumatic mitral (valve) prolapse; E78.5 Hyperlipidemia, unspecified; K21.9 Gastro-esophageal reflux disease without esophagitis; E11.9 Type 2 diabetes mellitus without complications; M19.90 Unspecified osteoarthritis, unspecified site; H26.9 Unspecified cataract; F32.A Depression, unspecified; F41.9 Anxiety disorder, unspecified; Z79.1 Long term (current) use of non-steroidal anti-inflammatories (NSAID); Z79.84 Long term (current) use of oral hypoglycemic drugs; Z79.899 Other long term (current) drug therapy; Z88.8 Allergy status to other drugs, medicaments and biological substances
CPT/HCPCS: 71045; 80048; 84484; 85025; 86140; 93005; 99285; C9803; U0003; U0005

== ENCOUNTER → 2022-01-15 13:49 | Outpatient (POV) | payer MEDICARE, OTHER, SELFPAY ==
--- NOTE | 2022-01-15 14:07 | A.OFFVIS_ITS ---
[facility] Pain Management SOAP Note Subjective:: Patient is a pleasant 71-year-old female who presents today for follow-up. We are currently treating the patient for osteoarthritis bilateral knees, degenerative disc disease lumbar spine with lumbar radiculopathy symptoms. Today she rates her pain a 0 out of 10. Patient states she does occasionally have pain due to her arthritis and neuropathy however she has done well following her last injection. Patient is currently managed with [place] 5 mg daily and Duexis. Patient denies any side effects from this medication. She states these medications do adequately manage her pain. She is requesting refills at today's visit. Patient did state that her spinal cord stimulator feels like it occasionally gets hot and she has to take ibuprofen to decrease the temperature of the device. Patient denies any discomfort or problems with her spinal cord stimulator. Her Jordan is [id number]. It has been reviewed and is appropriate. Review of Systems: General: No recent weight changes, no fever, no sleep disturbances Respiratory: No cough, no shortness of air, no recurring pulmonary infections Cardiovascular/peripheral vascular: No chest pain, no palpitations, no edema, no shortness of breath Gastrointestinal: No new onset incontinence, normal bowel movements reported Genitourinary: No new onset incontinence Musculoskeletal: Low back pain Psychiatric: [Normal mood/affect] Neurological: [Denies weakness in extremities], [denies balance issues] Objective:: Physical Exam: General: Alert and oriented x3, no acute distress, pleasant and cooperative Lungs: Respirations even and unlabored, symmetrical chest expansion Eyes: PERRL Musculoskeletal: Flexion and extension of lumbar [spine] somewhat guarded secondary to pain, [antalgic gait noted] Neurological: Speech clear, no gross sensory deficit Assessment:: Osteoarthritis bilateral knees, degenerative disc disease lumbar spine with lumbar radiculopathy symptoms Plan:: Patient continues to have significant pain improvement following her last intra- articular right knee injection. I will refill the patient's [place] 5 mg daily and provide a 1 month supply of this medication. I have talked to the patient regarding contacting her spinal cord stimulator payable representative to see about having it checked and/or reprogrammed. I will contact them today to get in touch with the patient. We will schedule a 1 month follow-up. Patient return to clinic in 1 month for reevaluation of symptoms and medication refill. I have also discussed with the patient that following this visit we can do a telehealth visit due to her trouble scheduling transportation to the hospital. Patient has been advised of risks of oversedation with the prescribed medication. Narcan has been offered to the patient in the event of oversedation. Patient has been advised that a family member should also be educated regarding administration of Narcan. Patient has been instructed to contact the clinic with any concerns before the next appointment. Dr. Navarro has reviewed this note and agrees with this plan of care. This note was dictated using voice recognition software and make contain errors or omissions. PFSH PFSH Social History Smoking Status: Never smoker second hand exposure: No alcohol intake: never substance use type: denies use current occupational status: other Travel in the last 8 weeks: None household members: none housing: house current occupational exposures/hazards: No caffeine: Yes
[2022-01-15 14:09] VITALS: BP 144/83; PULSE 69; RESP 18; TEMP 36.3; O2SAT 97; BMI 21.2
== END | disposition home or self-care (01) ==
PROVIDERS: Visit Provider Nurse Practitioner Family
DX: M51.16 Intervertebral disc disorders with radiculopathy, lumbar region (principal); M17.0 Bilateral primary osteoarthritis of knee
CPT/HCPCS: 99212; G0463

== ENCOUNTER 2022-02-06 23:49 | Emergency (ER) | payer MEDICARE, OTHER, SELFPAY ==
[2022-02-06 23:50] VITALS: BP 99/68; PULSE 76; RESP 18; TEMP 36.4; O2SAT 99; BMI 23.0
--- NOTE | 2022-02-07 00:35 | XR_ITS ---
PROCEDURE INFORMATION: Exam: XR Pelvis Exam date and time: 02/07/2022 1:43 AM Age: 71 years old Clinical indication: Injury or trauma; Fall; Blunt trauma (contusions or hematomas); Bilateral; Pelvic region TECHNIQUE: Imaging protocol: Radiologic exam of the pelvis. Views: 1 or 2 view. COMPARISON: CR XR HIP LT 2-3V W/PELVIS 11/06/2020 1:42 PM FINDINGS: Tubes, catheters and devices: Stable appearance of neurostimulator device projecting over the lower lumbar spine. Bones/joints: No acute fracture or malalignment. Pubic symphysis and bilateral sacroiliac joints are congruent. Soft tissues: Unremarkable. IMPRESSION: No evidence of acute osseous abnormality in the pelvis.
--- NOTE | 2022-02-07 00:35 | XR_ITS ---
PROCEDURE INFORMATION: Exam: XR Sacrum and Coccyx, 2 or More Views Exam date and time: 02/07/2022 1:45 AM Age: 71 years old Clinical indication: Injury or trauma; Fall; Blunt trauma (contusions or hematomas) TECHNIQUE: Imaging protocol: XR of the sacrum and coccyx, 2 or more views. COMPARISON: CR XR PELVIS 1-2V 02/07/2022 1:43 AM FINDINGS: Bones/joints: Sacroiliac joints are congruent. Sacral alar arcs appear intact. Coccyx is within normal limits. No acute fracture or malalignment. Soft tissues: Unremarkable. IMPRESSION: No evidence of acute osseous abnormality in the sacrum or coccyx.
--- NOTE | 2022-02-07 00:35 | XR_ITS ---
PROCEDURE INFORMATION: Exam: XR Chest Exam date and time: 02/07/2022 1:38 AM Age: 71 years old Clinical indication: Injury or trauma; Fall; Blunt trauma (contusions or hematomas) TECHNIQUE: Imaging protocol: Radiologic exam of the chest. Views: 2 views. COMPARISON: CR XR CHEST PORTABLE 11/25/2021 12:25 PM FINDINGS: Tubes, catheters and devices: Stable appearance of intrathecal neurostimulator device leads. Lungs: No acute airspace consolidation. No appreciable pulmonary edema. Pleural spaces: No pleural effusion. No pneumothorax. Heart/Mediastinum: Cardiomediastinal silouhette is within normal limits. Bones/joints: No evidence of acute osseous abnormality. IMPRESSION: No acute findings.
--- NOTE | 2022-02-07 02:50 | HMH.EDFALL ---
Discharge Plan Disposition Patient Disposition: Home, Self-Care Chief Complaint: Fall Prescriptions Prescriptions: No Action cholecalciferol (vitamin D3) 25 mcg (1,000 unit) capsule 25 mcg PO DAILY atorvastatin 40 mg tablet 40 mg PO HS Qty: 90 3RF hydrochlorothiazide 25 mg tablet 25 mg PO DAILY Qty: 90 3RF esomeprazole magnesium 40 mg capsule,delayed release(DR/EC) 40 mg PO DAILY metformin 500 mg tablet 500 mg PO BID paroxetine HCl 25 mg tablet extended release 24 hr 50 mg PO DAILY loratadine 10 tablet 10 mg PO DAILY Label Comments: clonazepam 1 MG tablet 1 mg PO TID hydrochlorothiazide 12.5 MG tablet 12.5 mg PO DAILY meclizine 25 MG tablet 25 mg PO TIDP PRN (Reason: Vertigo) Qty: 15 0RF bisoprolol fumarate 5 MG tablet See Rx Instructions .Route .COMPLEX Rx Instructions: TAKE 1/2 TABLET BY MOUTH DAILY FOR HIGH BLOOD PRESSURE cefdinir 300 MG capsule 300 mg PO BID ibuprofen-famotidine 1 EACH tablet 1 tab PO TID PRN (Reason: pain) Qty: 90 2RF hydrocodone-acetaminophen 1 EACH tablet 1 tab PO DAILY Qty: 30 0RF Referrals Follow up/Referrals: Deneen Noriega MD [Primary Care Provider] - See instructions Clinical Impressions Clinical Impression: Fall, Contusion of elbow, Coccyx contusion Instructions Patient Instructions: How to Prevent Falls Discharge ED Provider: Yahir Cain Fall HPI General Chief Complaint: Fall Stated Complaint: AO fall left elbow pain Time Seen by Provider: 02/07/22 02:50 Mode of Arrival: EMS Source of Information: Patient, EMS and Medical Record Limitations: No Limitations Description of Symptoms (Recalled from ER Triage Doc. by RN): pt states was in kitchen and fell. pt c/o her butt and rt elbow pain History of Present Illness HPI Narrative: pt with fall and injured lt elbow and pelvis region - no loc and no chest pain complaint: fall Onset (ago): hour(s) Fall from: standing Fall witnessed: no Place fall occurred: home Loss of consciousness: none Prolonged down time: no Symptoms prior to fall: none Context: tripped/slipped Location of injury: pelvis and buttocks Location of injury - extremities: Left: elbow Severity: moderate Associated symptoms (after fall): denies Related Data Home Medications Medication Instructions Recorded Confirmed loratadine 10 mg tablet 10 mg PO DAILY allergies 07/02/17 01/15/22 clonazepam 1 mg tablet 1 mg PO TID Anxiety 11/18/18 01/15/22 cholecalciferol (vitamin D3) 25 25 mcg PO DAILY Supplement 08/28/19 01/15/22 mcg (1,000 unit) capsule esomeprazole magnesium 40 mg 40 mg PO DAILY . 07/18/20 01/15/22 capsule,delayed release metformin 500 mg tablet 500 mg PO BID Diabetes 07/18/20 01/15/22 paroxetine HCl 25 mg 50 mg PO DAILY Depression 07/18/20 01/15/22 tablet,extended release 24 hr hydrochlorothiazide 12.5 mg tablet 12.5 mg PO DAILY Fluid 07/03/21 01/15/22 bisoprolol fumarate 5 mg tablet See Rx Instructions .Route 10/23/21 01/15/22 .COMPLEX HTN cefdinir 300 mg capsule 300 mg PO BID Infection 01/15/22 01/15/22 Previous Rx's Medication Instructions Recorded atorvastatin 40 mg tablet 40 mg PO HS Cholesterol #90 tabs 12/14/19 hydrochlorothiazide 25 mg tablet 25 mg PO DAILY High blood pressure 12/14/19 #90 tabs meclizine 25 mg tablet 25 mg PO TIDP PRN Vertigo #15 tabs 11/26/20 hydrocodone 5 mg-acetaminophen 325 1 tab PO DAILY Pain #30 tabs 01/15/22 mg tablet ibuprofen 800 mg-famotidine 26.6 1 tab PO TID PRN pain #90 tabs 01/15/22 mg tablet Allergies Allergy/AdvReac Type Severity Reaction Status Date / Time pregabalin [From Lyrica] Allergy Severe swelling Verified 09/26/21 14:43 in face gabapentin Allergy Intermediate NA-HALLUCIN [facility]26[facility]21 [facility] Social History Smoking Status: Never smoker second hand exposure: No alcohol intake: never substance use type: denies use
--- NOTE | 2022-02-07 02:57 | XR_ITS ---
PROCEDURE INFORMATION: Exam: XR Left Elbow Exam date and time: 02/07/2022 2:53 AM Age: 71 years old Clinical indication: Injury or trauma; Fall; Blunt trauma (contusions or hematomas); Elbow; Left TECHNIQUE: Imaging protocol: Radiologic exam of the Left elbow. Views: 3 or more views. COMPARISON: No relevant prior studies available. FINDINGS: Bones/joints: No acute fracture or malalignment. No significant elbow joint effusion. Soft tissues: Unremarkable. IMPRESSION: No evidence of acute osseous abnormality in the left elbow.
[2022-02-07 03:56] VITALS: BP 108/71; PULSE 70; RESP 18; TEMP 36.4; O2SAT 99
== END 2022-02-07 03:57 | disposition home or self-care (01) ==
PROVIDERS: Emergency Provider Emergency Medicine; PCP Family Medicine
DX: M53.3 Sacrococcygeal disorders, not elsewhere classified (principal); S50.02XA Contusion of left elbow, initial encounter; S30.0XXA Contusion of lower back and pelvis, initial encounter; W19.XXXA Unspecified fall, initial encounter; Y92.000 Kitchen of unspecified non-institutional (private) residence as the place of occurrence of the external cause; Z79.84 Long term (current) use of oral hypoglycemic drugs; Z79.899 Other long term (current) drug therapy; F41.9 Anxiety disorder, unspecified; E11.9 Type 2 diabetes mellitus without complications; F32.A Depression, unspecified; I10 Essential (primary) hypertension; E78.5 Hyperlipidemia, unspecified; Z88.8 Allergy status to other drugs, medicaments and biological substances
CPT/HCPCS: 71046; 72170; 72220; 73080; 99285

== ENCOUNTER → 2022-03-24 14:36 | Outpatient (POV) | payer MEDICARE, OTHER, SELFPAY ==
--- NOTE | 2022-03-24 15:28 | EXP.PAIN.SOA ---
[facility] Pain Management SOAP Note Subjective:: Patient is a pleasant 71-year-old female who presents today via telehealth visit for follow-up and medication refill. This audio telehealth visit is occurring at the patient's home and she is consented for this visit. We are currently treating the patient for osteoarthritis bilateral knees, degenerative disc disease of lumbar spine with lumbar radiculopathy symptoms. Today she rates her pain a 0 out of 10. Patient states that she does occasionally have pain in her foot however she is doing really well with her current medicine. Patient does have a history of arthritis and neuropathy. Patient is currently managed with [place] 5 mg daily. Patient denies any side effects from this medication. Patient states she does not need refills at this time on this medication. Patient does have a spinal cord stimulator in place however patient states that she has not been charging it because she has not needed it. Patient does state that she recently had a fall however had no residual injuries or fractures. Patient's Jordan is [id number]. Its been reviewed and appropriate. Review of Systems: General: No recent weight changes, no fever, no sleep disturbances Respiratory: No cough, no shortness of air, no recurring pulmonary infections Cardiovascular/peripheral vascular: No chest pain, no palpitations, no edema, no shortness of breath Gastrointestinal: No new onset incontinence, normal bowel movements reported Genitourinary: No new onset incontinence Musculoskeletal: Low back pain, foot pain Psychiatric: [Normal mood/affect] Neurological: [Denies weakness in extremities], [denies balance issues] Objective:: General: Alert and oriented x3, pleasant and cooperative Lungs: Patient is able to say complete sentences without dyspnea Neurological: Speech clear Assessment:: Degenerative disc disease of lumbar spine with lumbar radiculopathy symptoms, osteoarthritis bilateral knees Plan:: Patient continues to experience some pain however she is managed well with her current medication regimen. Patient states she just had her [place] recently refilled and does not require anything additional at this time. Patient will return to clinic in 1 month for reevaluation of symptoms, medication refill and follow-up. Patient has been advised of risks of oversedation with the prescribed medication. Narcan has been offered to the patient in the event of oversedation. Patient has been advised that a family member should also be educated regarding administration of Narcan. Patient has been instructed to contact the clinic with any concerns before the next appointment. Dr. Navarro has reviewed this note and agrees with this plan of care. This note was dictated using voice recognition software and make contain errors or omissions. [facility] Disclaimer: The information contained in this section may have been updated after the patient was seen, as this information can be updated by other users. Social History Smoking Status: Never smoker second hand exposure: No alcohol intake: never substance use type: denies use current occupational status: retired Travel in the last 8 weeks: None household members: none housing: house current occupational exposures/hazards: No caffeine: Yes
== END ==
PROVIDERS: Visit Provider Nurse Practitioner Family
DX: M51.16 Intervertebral disc disorders with radiculopathy, lumbar region (principal); M17.0 Bilateral primary osteoarthritis of knee
CPT/HCPCS: 99212; G0463

== ENCOUNTER 2022-04-07 19:15 | Emergency (ER) | payer MEDICARE, OTHER, SELFPAY ==
[2022-04-07] VITALS (12 sets, daily range): BP systolic 104–166; BP diastolic 58–70; PULSE 54–56; RESP 13–18; TEMP 36.8; O2SAT 96–97; BMI 23.2; BMI 26.5
--- NOTE | 2022-04-07 19:17 | ECG_ITS ---
APPROVED REPORT Exam: Resting ECG HR:52 bpm ECG Measurements Heart Rate 52 AXES NH 154 P 51 QRSd 76 QRS 31 QT 433 T 38 QTc 412 Conclusion SINUS BRADYCARDIA MINIMAL ST DEPRESSION [0.025+ mV ST DEPRESSION] BORDERLINE ECG UNCONFIRMED REPORT Electronically signed by : Robert Zayas MD 04/10/2022 09:01:23
[2022-04-07 20:00] LABS: Alanine Aminotransferase 26 U/L (12-78); Albumin Level 4.7 g/dl (3.5-5.0); Albumin/Globulin Ratio 1.4 (1.1-1.8); Alkaline Phosphatase 90 U/L (38-126); Anion Gap 14.8 mEq/L (5-15); Aspartate Amino Transferase 45 U/L (14-36); Bilirubin,Total 0.6 mg/dl (0.2-1.3); Blood Urea Nitrogen 23 mg/dl (7-17); Calcium 9.7 mg/dl (8.4-10.2); Carbon Dioxide 29 mmol/L (22.0-30.0); Chloride 99 mmol/L (98-107); Creatinine Clearance Estimated 42 mL/min (50-200); Estimated Glomerular Filt Rate 40 ml/min (>60); GFR (African American) 49 ML/MIN (>60); Globulin 3.3 g/dL (1.3-3.2); Glucose 139 mg/dl (74-100); Sodium 140 mmol/L (136-145)
[2022-04-07 20:02] LABS: Potassium 2.8 mmoL/L (3.5-5.1)
--- NOTE | 2022-04-07 20:02 | PC.NURSE ---
notified ER MD guzmán of critical potassium
[2022-04-07 20:13] LABS: Troponin I < 0.01 ng/ml (0.00-0.034)
[2022-04-07 20:41] LABS: Basophils # 0.1 K/mm3 (0-0.2); Basophils % 1.2 % (0.1-2.0); Eosinophils # 0.4 K/mm3 (0.0-0.4); Eosinophils % 5.6 % (0.1-12.0); Hematocrit 42.2 % (37.0-47.0); Hemoglobin 13.3 g/dL (12.2-16.2); Lymphocytes # 3.2 K/mm3 (0.7-4.5); Mean Corpuscular HGB Conc 31.4 g/dL (31.8-35.4); Mean Corpuscular Hemoglobin 24.6 pg (27.0-31.2); Mean Corpuscular Volume 78.2 fl (81-99); Mean Platelet Volume 9.1 fl (7.4-10.4); Monocytes # 0.4 K/mm3 (0.1-1.0); Monocytes % 4.7 % (1.7-9.3); Neutrophils # 3.5 K/mm3 (1.8-7.8); Neutrophils % 46.4 % (37.0-80.0); Platelet Count 300 K/mm3 (142-424); Red Blood Count 5.39 M/mm3 (4.20-5.40); White Blood Count 7.5 K/mm3 (4.8-10.8)
[2022-04-07 22:55] LABS: Coronavirus 19, PCR Not Detected (NotDetected); Influenza A, PCR Not Detected (NotDetected); Influenza B, PCR Not Detected (NotDetected)
[2022-04-07 23:28] LABS: Troponin I < 0.01 ng/ml (0.00-0.034)
--- NOTE | 2022-04-08 00:06 | HMH.EDHA ---
Discharge Plan Disposition Patient Disposition: Home, Self-Care Chief Complaint: Headache Prescriptions Prescriptions: No Action cholecalciferol (vitamin D3) 25 mcg (1,000 unit) capsule 25 mcg PO DAILY atorvastatin 40 mg tablet 40 mg PO HS Qty: 90 3RF hydrochlorothiazide 25 mg tablet 25 mg PO DAILY Qty: 90 3RF esomeprazole magnesium 40 mg capsule,delayed release(DR/EC) 40 mg PO DAILY metformin 500 mg tablet 500 mg PO BID paroxetine HCl 25 mg tablet extended release 24 hr 50 mg PO DAILY loratadine 10 tablet 10 mg PO DAILY Label Comments: clonazepam 1 MG tablet 1 mg PO TID hydrochlorothiazide 12.5 MG tablet 12.5 mg PO DAILY hydrocodone-acetaminophen 5-325 mg tablet 1 tab PO NEEDED PRN (Reason: Pain) meclizine 25 MG tablet 25 mg PO TIDP PRN (Reason: Vertigo) Qty: 15 0RF bisoprolol fumarate 5 MG tablet See Rx Instructions .Route .COMPLEX Rx Instructions: TAKE 1/2 TABLET BY MOUTH DAILY FOR HIGH BLOOD PRESSURE cefdinir 300 MG capsule 300 mg PO BID ibuprofen-famotidine 1 EACH tablet 1 tab PO TID PRN (Reason: pain) Qty: 90 2RF hydrocodone-acetaminophen 1 EACH tablet 1 tab PO DAILY Qty: 30 0RF Referrals Follow up/Referrals: Provider,Referral, MD [Primary Care Provider] - See instructions Clinical Impressions Clinical Impression: Acute hypokalemia Instructions Patient Instructions: DI for Headache, DI for Hypokalemia Discharge ED Provider: Yahir Cain Headache HPI General Chief Complaint: Headache Stated Complaint: AMS Time Seen by Provider: 04/08/22 00:06 Mode of Arrival: EMS Source of Information: Patient, EMS and Medical Record Limitations: No Limitations Description of Symptoms (Recalled from ER Triage Doc. by RN): Patient arrives via ems with several vague complaints. C/O hypertension, however, per EMS patients blood pressure cuff had the batteries in incorrectly so she had not been taking her blood pressure at home. Additionally c/o dizziness for prior week but has a history of vertigo. States that she has had a headache today and earlier today had chest pain but she isnt having any now. States that she has also been having some confusion and has been calling family at all hours of the night . Patient is currently a&ox4 upon arrival. History of Present Illness HPI Narrative: pt with hoyos and concern about elevated bp - occ dizzyness-- some confusion - no fever/rash or trauma MD Complaint: headache Onset (ago): hour(s) Onset description: gradual Location: diffuse Severity: mild Quality: similar to previous headaches Treatments prior to arrival: acetaminophen Related Data Home Medications Medication Instructions Recorded Confirmed loratadine 10 mg tablet 10 mg PO DAILY allergies 07/02/17 04/08/22 clonazepam 1 mg tablet 1 mg PO TID Anxiety 11/18/18 04/08/22 cholecalciferol (vitamin D3) 25 25 mcg PO DAILY Supplement 08/28/19 04/08/22 mcg (1,000 unit) capsule esomeprazole magnesium 40 mg 40 mg PO DAILY . 07/18/20 04/08/22 capsule,delayed release metformin 500 mg tablet 500 mg PO BID Diabetes 07/18/20 04/08/22 paroxetine HCl 25 mg 50 mg PO DAILY Depression 07/18/20 04/08/22 tablet,extended release 24 hr hydrochlorothiazide 12.5 mg tablet 12.5 mg PO DAILY Fluid 07/03/21 04/08/22 bisoprolol fumarate 5 mg tablet See Rx Instructions .Route 10/23/21 04/08/22 .COMPLEX HTN cefdinir 300 mg capsule 300 mg PO BID Infection 01/15/22 04/08/22 hydrocodone 5 mg-acetaminophen 325 1 tab PO NEEDED PRN Pain 04/08/22 04/08/22 mg tablet Previous Rx's Medication Instructions Recorded atorvastatin 40 mg tablet 40 mg PO HS Cholesterol #90 tabs 12/14/19 hydrochlorothiazide 25 mg tablet 25 mg PO DAILY High blood pressure 12/14/19 #90 tabs meclizine 25 mg tablet 25 mg PO TIDP PRN Vertigo #15 tabs 11/26/20 hydrocodone 5 mg-acetaminophen 325 1 tab PO DAILY Pain #30 tabs 01/15/22 mg tablet i
[2022-04-08 00:19] VITALS: BP 116/61; BP 121/80; BP 144/84; PULSE 55; PULSE 65; PULSE 71
[2022-04-08 00:21] LABS: Microscopic, Urine URINE MICROSCOPIC (MICROSCOPIC)
[2022-04-08 00:23] LABS: Appearance,Urine CLEAR (Clear); Bilirubin,Urine Negative (Negative); Blood, Urine Negative (Negative); Color,Urine YELLOW (Yellow); Glucose,Urine (UA) Negative (Negative); Ketones,Urine Negative (Negative); Leukocyte Esterase,Urine TRACE (Negative); Nitrate,Urine Negative (Negative); Protein,Urine Negative (Negative); Urobilinogen,Urine 0.2 EU/dl (0.2)
[2022-04-08 00:28] LABS: Squamous Epithelial Cell,Urine Occasional #/hpf (0-5); WBC,Urine Occasional #/hpf (0-3)
[2022-04-08 01:30] VITALS: BP 112/75; PULSE 60; RESP 18; TEMP 36.8; O2SAT 97
== END 2022-04-08 02:00 | disposition home or self-care (01) ==
PROVIDERS: Emergency Medicine; Emergency Provider Emergency Medicine
DX: R42 Dizziness and giddiness (principal); R00.2 Palpitations; M54.9 Dorsalgia, unspecified; E87.6 Hypokalemia; R00.1 Bradycardia, unspecified; Z20.822 Contact with and (suspected) exposure to COVID-19; R41.0 Disorientation, unspecified; R51.9 Headache, unspecified; I10 Essential (primary) hypertension; I34.1 Nonrheumatic mitral (valve) prolapse; R01.1 Cardiac murmur, unspecified; K21.9 Gastro-esophageal reflux disease without esophagitis; E03.9 Hypothyroidism, unspecified; M19.90 Unspecified osteoarthritis, unspecified site; H26.9 Unspecified cataract; F32.A Depression, unspecified; F41.9 Anxiety disorder, unspecified; Z79.1 Long term (current) use of non-steroidal anti-inflammatories (NSAID); Z79.84 Long term (current) use of oral hypoglycemic drugs; Z79.899 Other long term (current) drug therapy; Z88.8 Allergy status to other drugs, medicaments and biological substances; Z87.891 Personal history of nicotine dependence
CPT/HCPCS: 80053; 81001; 84484; 85025; 93005; 96360; 99284; C9803; U0003; U0005

== ENCOUNTER → 2022-05-11 14:05 | Outpatient (POV) | payer MEDICARE, OTHER, SELFPAY ==
--- NOTE | 2022-05-11 14:49 | EXP.PAIN.SOA ---
[facility] Pain Management SOAP Note Subjective:: Patient is a pleasant 71-year-old female who presents today for medication refill and follow-up. We are currently treating the patient for degenerative disc disease of lumbar spine with lumbar radiculopathy symptoms, osteoarthritis bilateral knees. Today she rates her pain a 6 out of 10. Patient denies any new trauma. Patient denies any change location or type of pain she experiences. Patient is currently managed with clonazepam 1 mg 3 times a day from her primary care doctor and [place] 5 mg daily from our office. Patient denies any side effects from this medication. She states this medication does help manage her pain symptoms. She is requesting a refill at today's visit. Her Jordan is [phone]. Its been reviewed and appropriate. Review of Systems: General: No recent weight changes, no fever, no sleep disturbances Respiratory: No cough, no shortness of air, no recurring pulmonary infections Cardiovascular/peripheral vascular: No chest pain, no palpitations, no edema, no shortness of breath Gastrointestinal: No new onset incontinence, normal bowel movements reported Genitourinary: No new onset incontinence Musculoskeletal: Low back pain Psychiatric: [Normal mood/affect] Neurological: [Denies weakness in extremities], [denies balance issues] Objective:: Physical Exam: General: Alert and oriented x3, no acute distress, pleasant and cooperative Lungs: Respirations even and unlabored, symmetrical chest expansion Eyes: PERRL Musculoskeletal: Flexion and extension of lumbar [spine] somewhat guarded secondary to pain, [antalgic gait noted] Neurological: Speech clear, no gross sensory deficit ORT score updated with moderate risk Family history of prescription drug abuse Personal history of prescription drug abuse OCD and depression Assessment:: Degenerative disc disease of lumbar spine with lumbar radiculopathy symptoms, osteoarthritis bilateral knees Plan:: Patient continues to experience significant pain in her low back however she is doing well with her current medication regimen. We will refill her [place] 5 mg daily and provide a 1 month supply of this medication. Patient will return to clinic via telehealth visit in 1 month for reevaluation of symptoms, medication refill and follow-up. Patient has been advised of risks of oversedation with the prescribed medication. Narcan has been offered to the patient in the event of oversedation. Patient has been advised that a family member should also be educated regarding administration of Narcan. Patient has been instructed to contact the clinic with any concerns before the next appointment. Dr. Navarro has reviewed this note and agrees with this plan of care. This note was dictated using voice recognition software and make contain errors or omissions. [facility] Disclaimer: The information contained in this section may have been updated after the patient was seen, as this information can be updated by other users. Social History Smoking Status: Former smoker pack-years: 10 second hand exposure: No alcohol intake: never substance use type: denies use current occupational status: retired Travel in the last 8 weeks: None household members: none housing: house current occupational exposures/hazards: No caffeine: Yes
[2022-05-11 15:47] VITALS: BP 112/85; PULSE 74; RESP 18; O2SAT 98; BMI 22.4
== END | disposition home or self-care (01) ==
PROVIDERS: PCP Nurse Practitioner Family; Visit Provider Nurse Practitioner Family
DX: M51.16 Intervertebral disc disorders with radiculopathy, lumbar region (principal); M17.0 Bilateral primary osteoarthritis of knee
CPT/HCPCS: 99212; G0463

== ENCOUNTER → 2022-05-11 15:01 | Outpatient (CLI) | payer MEDICARE, OTHER, SELFPAY ==
[2022-05-11 16:55] LABS: Amphetamine/Metha Screen,Urine Negative ng/ml (<1000)
[2022-05-11 16:56] LABS: Barbiturates Screen,Urine Negative ng/ml (<200); Benzodiazepines Screen,Urine Negative ng/ml (<200)
[2022-05-11 16:57] LABS: Cannabinoid Screen,Urine Negative ng/ml (<50); Cocaine Screen,Urine Negative ng/ml (<300)
[2022-05-11 16:58] LABS: Methadone Screen,Urine Negative ng/ml (<300)
[2022-05-11 16:59] LABS: Opiate Screen,Urine Negative ng/ml (<300); Phencyclidine Screen,Urine Negative ng/ml (<25)
== END ==
PROVIDERS: PCP Nurse Practitioner Family; Visit Provider Nurse Practitioner Family
DX: Z79.891 Long term (current) use of opiate analgesic (principal)
CPT/HCPCS: 80305; 80361; 80365; 99212; G0463; G0480

== ENCOUNTER 2022-05-31 14:29 | Emergency (ER) | payer MEDICARE, OTHER, SELFPAY ==
[2022-05-31 14:39] VITALS: BP 180/94; PULSE 75; RESP 15; TEMP 36.8; O2SAT 98; BMI 22.4
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
[2022-05-31 15:01] VITALS: BP 119/50; PULSE 70; O2SAT 99
--- NOTE | 2022-05-31 15:07 | PC.NURSE ---
phone given to pt to call home
--- NOTE | 2022-05-31 15:11 | PC.NURSE ---
PT DAUGHTER CALLED TO CHECK ON MOM,SAID TO UPDATE AND LET HER KNOW WHAT GOING ON LEFT A CALL BACK NAME AND NUMBER PADMA THAKKAR #
[2022-05-31 15:31] VITALS: BP 134/48; PULSE 70; O2SAT 99
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
[2022-05-31 16:00] VITALS: BP 136/85; PULSE 69; O2SAT 99
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
[2022-05-31 16:23] VITALS: BP 136/85; PULSE 63; RESP 17; TEMP 36.8; O2SAT 96
== END 2022-05-31 16:38 | disposition home or self-care (01) ==
PROVIDERS: Emergency Provider Emergency Medicine; PCP Nurse Practitioner Family
DX: S06.0X0A Concussion without loss of consciousness, initial encounter (principal); S32.009A Unspecified fracture of unspecified lumbar vertebra, initial encounter for closed fracture; V47.6XXA Car passenger injured in collision with fixed or stationary object in traffic accident, initial encounter
CPT/HCPCS: 70450; 72131; 99285

== ENCOUNTER → 2022-06-08 14:29 | Outpatient (POV) | payer MEDICARE, OTHER, SELFPAY ==
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
[2022-06-08 15:15] VITALS: BP 121/71; PULSE 75; RESP 18; O2SAT 97; BMI 22.4
== END | disposition home or self-care (01) ==
PROVIDERS: PCP Nurse Practitioner Family; Visit Provider Nurse Practitioner Family
DX: M51.16 Intervertebral disc disorders with radiculopathy, lumbar region (principal); M17.0 Bilateral primary osteoarthritis of knee; S32.009A Unspecified fracture of unspecified lumbar vertebra, initial encounter for closed fracture
CPT/HCPCS: 99212; G0463

== ENCOUNTER → 2022-07-06 14:14 | Outpatient (POV) | payer MEDICARE, OTHER, SELFPAY ==
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
[2022-07-06 15:13] VITALS: BP 149/71; PULSE 69; RESP 18; O2SAT 96; BMI 23.4
== END | disposition home or self-care (01) ==
PROVIDERS: PCP Nurse Practitioner Family; Visit Provider Nurse Practitioner Family
DX: M51.16 Intervertebral disc disorders with radiculopathy, lumbar region (principal); Z79.891 Long term (current) use of opiate analgesic; M17.0 Bilateral primary osteoarthritis of knee
CPT/HCPCS: 99212; G0463

== ENCOUNTER → 2022-08-03 14:16 | Outpatient (POV) | payer MEDICARE, OTHER, SELFPAY ==
[2022-08-03 15:20] VITALS: BP 98/66; PULSE 77; RESP 18; O2SAT 98; BMI 23.2
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
== END | disposition home or self-care (01) ==
PROVIDERS: PCP Family Medicine; Visit Provider Nurse Practitioner Family
DX: M51.16 Intervertebral disc disorders with radiculopathy, lumbar region (principal); M17.0 Bilateral primary osteoarthritis of knee
CPT/HCPCS: 99212; G0463

== ENCOUNTER 2022-08-13 21:28 | Emergency (ER) | payer MEDICARE, OTHER, SELFPAY ==
[2022-08-13 21:30] VITALS: BP 133/75; BP 139/56; PULSE 92; PULSE 97; RESP 16; TEMP 37; O2SAT 98; O2SAT 99; BMI 23.4
--- NOTE | 2022-08-13 21:40 | HMH.EDGENADL ---
Discharge Plan Disposition Patient Disposition: Home, Self-Care Condition: Good Prescriptions Prescriptions: New nitrofurantoin monohyd/m-cryst [Macrobid] 100 mg capsule 100 mg PO BID 7 Days Qty: 14 0RF Rx Instructions: must administer with a meal/food No Action cholecalciferol (vitamin D3) 25 mcg (1,000 unit) capsule 25 mcg PO DAILY esomeprazole magnesium 40 mg capsule,delayed release(DR/EC) 40 mg PO DAILY metformin 500 mg tablet 500 mg PO BID paroxetine HCl 25 mg tablet extended release 24 hr 50 mg PO DAILY hydrochlorothiazide 12.5 mg tablet 12.5 mg PO DAILY Qty: 90 3RF bisoprolol fumarate 5 mg tablet See Rx Instructions .Route .COMPLEX Qty: 90 3RF Rx Instructions: TAKE 1/2 TABLET BY MOUTH DAILY FOR HIGH BLOOD PRESSURE atorvastatin 40 mg tablet 40 mg PO HS Qty: 90 3RF ibuprofen-famotidine 800-26.6 mg tablet 1 tab PO TID PRN (Reason: pain) Qty: 90 2RF loratadine 10 tablet 10 mg PO DAILY Label Comments: clonazepam 1 MG tablet 1 mg PO TID meclizine 25 MG tablet 25 mg PO TIDP PRN (Reason: Vertigo) Qty: 15 0RF hydrocodone-acetaminophen 1 EACH tablet 1 tab PO DAILY Qty: 30 0RF Referrals Follow up/Referrals: Deneen Noriega MD [Primary Care Provider] - See instructions Activity Restrictions/Add. Instructions Additional Instructions/Restrictions: You were evaluated in the emergency department today. You were diagnosed with a urinary tract infection. Please picker tender your prescription and take the full course as prescribed. Return to the emergency department for new or worsening symptoms. Follow-up with your primary care provider over the next 3 days. Clinical Impressions Clinical Impression: UTI (urinary tract infection) Qualifiers: Urinary tract infection type: acute cystitis Instructions Patient Instructions: DI for Urinary Tract Infection (UTI) Discharge ED Provider: Kaelyn Murphy General Adult HPI General Chief complaint: Urogenital-Female Stated complaint: Headache Time Seen by Provider: 08/13/22 21:32 Mode of Arrival: EMS Source of Information: EMS Limitations: No Limitations Description of Symptoms (Recalled from ER Triage Doc. by RN): Per ems, pt c/o burning with urination for prior week, headache prior 4 hours, chills and bodyaches. Pt states that she called 911 tonight because shes had a headache and began getting chills and shaking so she called 911 History of Present Illness HPI narrative: This patient is a 71-year-old female presenting to the emergency department for evaluation with concern for an episode of shakiness. She states that just prior to arrival, she felt like her blood sugar dropped acutely. She states that she does have diabetes, but she is not on insulin. She states that she takes metformin for this. She states that she still has issues with her blood sugar sometimes. She states that she has been eating and drinking normally. She denies any fevers, abdominal pain, nausea, vomiting, changes in bowel movements, or other concerns. On review of systems, she does admit to dysuria for approximately 1 week. She states that it is improving, but still persistent. She denies any other concerns at this time. Related Data Home Medications Medication Instructions Recorded Confirmed loratadine 10 mg tablet 10 mg PO DAILY allergies 07/02/17 08/03/22 clonazepam 1 mg tablet 1 mg PO TID Anxiety 11/18/18 08/03/22 cholecalciferol (vitamin D3) 25 25 mcg PO DAILY Supplement 08/28/19 08/03/22 mcg (1,000 unit) capsule esomeprazole magnesium 40 mg 40 mg PO DAILY . 07/18/20 08/03/22 capsule,delayed release metformin 500 mg tablet 500 mg PO BID Diabetes 07/18/20 08/03/22 paroxetine HCl 25 mg 50 mg PO DAILY Depression 07/18/20 08/03/22 tablet,extended release 24 hr Previous Rx's Medication Instructions Recorded meclizine 25 mg tablet 25 mg PO TIDP PRN Vertigo #15 tabs 11/26/20 ibupr
[2022-08-13 22:01] VITALS: BP 143/65; PULSE 92; O2SAT 99
[2022-08-13 22:06] LABS: Chloride 98 mmol/L (98-107); Potassium 3.7 mmoL/L (3.5-5.1); Sodium 135 mmol/L (136-145)
[2022-08-13 22:09] LABS: Anion Gap 16.7 mEq/L (5-15); Blood Urea Nitrogen 13 mg/dl (7-17); Calcium 8.4 mg/dl (8.4-10.2); Carbon Dioxide 24 mmol/L (22.0-30.0); Creatinine Clearance Estimated 44 mL/min (50-200); Estimated Glomerular Filt Rate 62 ml/min (>60); GFR (African American) 74 ML/MIN (>60); Glucose 179 mg/dl (74-100)
[2022-08-13 22:12] LABS: Microscopic, Urine URINE MICROSCOPIC (MICROSCOPIC)
[2022-08-13 22:13] LABS: Appearance,Urine CLEAR (Clear); Bilirubin,Urine Negative (Negative); Blood, Urine 3+ (Negative); Color,Urine YELLOW (Yellow); Glucose,Urine (UA) Negative (Negative); Ketones,Urine Negative (Negative); Leukocyte Esterase,Urine 2+ (Negative); Nitrate,Urine Negative (Negative); Protein,Urine 1+ (Negative); Specific Gravity, Urine 1.015 (1.005-1.030); Urobilinogen,Urine 0.2 EU/dl (0.2)
--- NOTE | 2022-08-13 22:15 | ECG_ITS ---
APPROVED REPORT Exam: Resting ECG HR:90 bpm ECG Measurements Heart Rate 90 AXES IN 135 P 21 QRSd 74 QRS 36 QT 322 T 37 QTc 370 Conclusion SINUS RHYTHM MINIMAL ST DEPRESSION [0.025+ mV ST DEPRESSION] BORDERLINE ECG UNCONFIRMED REPORT Electronically signed by : Robert Zayas MD 08/15/2022 15:56:49
[2022-08-13 22:16] LABS: Basophils % 0.2 % (0.1-2.0); Eosinophils # 0.1 K/mm3 (0.0-0.4); Eosinophils % 1.2 % (0.1-12.0); Hematocrit 34.2 % (37.0-47.0); Hemoglobin 10.5 g/dL (12.2-16.2); Lymphocytes # 0.9 K/mm3 (0.7-4.5); Lymphocytes % 7.6 % (10-50); Mean Corpuscular HGB Conc 30.7 g/dL (31.8-35.4); Mean Corpuscular Hemoglobin 23.9 pg (27.0-31.2); Mean Corpuscular Volume 77.6 fl (81-99); Mean Platelet Volume 8.5 fl (7.4-10.4); Monocytes # 0.7 K/mm3 (0.1-1.0); Monocytes % 5.6 % (1.7-9.3); Neutrophils # 10.5 K/mm3 (1.8-7.8); Neutrophils % 85.5 % (37.0-80.0); Platelet Count 203 K/mm3 (142-424); Red Blood Count 4.41 M/mm3 (4.20-5.40); Red Cell Distribution Width 16.5 % (11.5-17.5); White Blood Count 12.3 K/mm3 (4.8-10.8)
[2022-08-13 22:18] LABS: MANUAL DIFFERENTIAL MANUAL DIFFERENTIAL (MANUAL DIFF)
[2022-08-13 22:30] VITALS: BP 118/67; PULSE 87; O2SAT 96
[2022-08-13 22:30] LABS: Bacteria,Urine Trace /lpf; WBC,Urine 20-50 #/hpf (0-3)
[2022-08-13 22:57] VITALS: BP 116/78; PULSE 81; RESP 18; TEMP 37; O2SAT 96
[2022-08-13 23:04] LABS: Lymphocytes % 5 % (10-50); Microcytosis 1+; Monocytes % 4 % (2-9); Neutrophils % 91 % (42-76); Ovalocytes 1+; Platelet Estimate Normal; Total Cells Counted 100
== END 2022-08-13 22:59 | disposition home or self-care (01) ==
PROVIDERS: Emergency Provider Emergency Medicine; PCP Family Medicine
DX: N30.90 Cystitis, unspecified without hematuria (principal)
CPT/HCPCS: 80048; 81001; 85007; 85025; 87077; 87086; 87088; 93005; 99284; 99285

== ENCOUNTER 2022-08-15 17:40 | Inpatient (IN) | payer MEDICARE, OTHER, SELFPAY ==
[2022-08-15 17:45] VITALS: BP 123/58; PULSE 72; RESP 18; TEMP 36.5; O2SAT 93; BMI 22.4
[2022-08-15 18:09] LABS: Chloride 93 mmol/L (98-107); Potassium 3.2 mmoL/L (3.5-5.1); Sodium 133 mmol/L (136-145)
[2022-08-15 18:11] LABS: Basophils % 0.1 % (0.1-2.0); Eosinophils # 0.1 K/mm3 (0.0-0.4); Eosinophils % 0.5 % (0.1-12.0); Hematocrit 34.3 % (37.0-47.0); Hemoglobin 10.9 g/dL (12.2-16.2); Lymphocytes # 0.6 K/mm3 (0.7-4.5); Lymphocytes % 2.8 % (10-50); Mean Corpuscular HGB Conc 31.8 g/dL (31.8-35.4); Mean Corpuscular Hemoglobin 23.8 pg (27.0-31.2); Mean Platelet Volume 8.7 fl (7.4-10.4); Monocytes # 0.4 K/mm3 (0.1-1.0); Monocytes % 1.8 % (1.7-9.3); Neutrophils # 20.7 K/mm3 (1.8-7.8); Neutrophils % 94.9 % (37.0-80.0); Platelet Count 197 K/mm3 (142-424); Red Blood Count 4.58 M/mm3 (4.20-5.40); Red Cell Distribution Width 17.4 % (11.5-17.5); White Blood Count 21.9 K/mm3 (4.8-10.8)
[2022-08-15 18:12] LABS: Alanine Aminotransferase 44 U/L (12-78); Albumin Level 3.4 g/dl (3.5-5.0); Albumin/Globulin Ratio 1.1 (1.1-1.8); Alkaline Phosphatase 100 U/L (38-126); Anion Gap 23.2 mEq/L (5-15); Aspartate Amino Transferase 56 U/L (14-36); Bilirubin,Total 0.9 mg/dl (0.2-1.3); Blood Urea Nitrogen 32 mg/dl (7-17); Carbon Dioxide 20 mmol/L (22.0-30.0); Creatinine Clearance Estimated 28 mL/min (50-200); Estimated Glomerular Filt Rate 34 ml/min (>60); GFR (African American) 41 ML/MIN (>60); Globulin 3.1 g/dL (1.3-3.2); MANUAL DIFFERENTIAL MANUAL DIFFERENTIAL (MANUAL DIFF); Total Protein,Serum 6.5 g/dl (6.3-8.2)
[2022-08-15 18:13] LABS: Glucose 166 mg/dl (74-100)
--- NOTE | 2022-08-15 18:20 | PC.NURSE ---
pt laying in bed, no needs at this time
[2022-08-15 18:23] LABS: Hypochromasia 2+; Lymphocytes % 4 % (10-50); Monocytes % 1 % (2-9); Neutrophils % 94 % (42-76); Platelet Estimate Normal; Total Cells Counted 100
[2022-08-15 18:24] LABS: Burr Cells 1+; Microcytosis 1+; Ovalocytes 1+
[2022-08-15 18:30] VITALS: BP 89/49; PULSE 91; O2SAT 100
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
--- NOTE | 2022-08-15 18:39 | PC.NURSE ---
Called lab to help with Blood Cultures
--- NOTE | 2022-08-15 18:45 | PC.NURSE ---
Lab at beside completing Blood cultures
[2022-08-15 18:56] LABS: Lactic Acid 4.3 mmol/L (0.7-2.1)
[2022-08-15 18:58] VITALS: BP 105/68; PULSE 95; O2SAT 88
[2022-08-15 19:00] VITALS: BP 103/74
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
[2022-08-15 19:11] LABS: Coronavirus 19, PCR Not Detected (NotDetected); Influenza A, PCR Not Detected (NotDetected); Influenza B, PCR Not Detected (NotDetected)
[2022-08-15 19:48] VITALS: BP 105/73; PULSE 91; RESP 18; TEMP 36.5; O2SAT 94
--- NOTE | 2022-08-15 19:59 | PC.NURSE ---
PT ARRIVED TO FLOOR AT THIS TIME.
[2022-08-15 20:00] VITALS: BP 98/49; PULSE 81; RESP 16; TEMP 36.9; O2SAT 99; BMI 23.2
[2022-08-15 22:35] LABS: Reflex Lactic Add Lactic Reflex
[2022-08-15 23:52] LABS: Lactic Acid Follow Up (RFLX 1) 6.8 mmol/L (0.7-2.1)
[2022-08-16] VITALS: BP 109/57; PULSE 104; RESP 18; TEMP 39.4; O2SAT 96
--- NOTE | 2022-08-16 00:05 | PC.NURSE ---
joaquina from lab reported a critical lactic of 6.8, name and verified. notified BLADE Booker, orders to give a fluid bolus.
[2022-08-16 01:24] LABS: Reflex Lactic (2 hrs) Add Lactic Reflex
[2022-08-16 01:59] LABS: Lactic Acid Follow up (RFLX 2) 1.4 mmol/L (0.7-2.1)
[2022-08-16 04:00] VITALS: BP 90/51; PULSE 90; RESP 19; TEMP 36.8; O2SAT 91; BMI 23.0
--- NOTE | 2022-08-16 05:24 | PC.NURSE ---
pt. a&oX4. no c/o of pain or nausea since admission. pt. had a temp of 103 but was medicated with tylenol per mar and blankets were removed, temp. decreased to 98.3. call mays is in reach.
[2022-08-16 05:42] LABS: POC Glucose,Bedside 118 (70-110)
[2022-08-16 07:16] VITALS: BP 85/50; PULSE 81; RESP 16; TEMP 36.8; O2SAT 92
--- NOTE | 2022-08-16 07:20 | EXP.SEPSISRE ---
[facility] Tissue Perfusion Eval Sepsis Re-Evaluation Performed: Yes Date Performed: 08/15/22 Time Performed: 19:10
[2022-08-16 08:03] LABS: POC Glucose,Bedside 178 (70-110)
[2022-08-16 08:13] LABS: Alanine Aminotransferase 23 U/L (12-78); Albumin Level 2.3 g/dl (3.5-5.0); Albumin/Globulin Ratio 1.1 (1.1-1.8); Alkaline Phosphatase 57 U/L (38-126); Anion Gap 12.6 mEq/L (5-15); Aspartate Amino Transferase 41 U/L (14-36); Bilirubin,Total 0.7 mg/dl (0.2-1.3); Blood Urea Nitrogen 28 mg/dl (7-17); Calcium 6.9 mg/dl (8.4-10.2); Carbon Dioxide 21 mmol/L (22.0-30.0); Chloride 106 mmol/L (98-107); Chol/HDL Ratio 6.7 (1-3.5); Cholesterol 80 mg/dl (140-200); Creatinine Clearance Estimated 36 mL/min (50-200); Estimated Glomerular Filt Rate 44 ml/min (>60); GFR (African American) 53 ML/MIN (>60); Globulin 2.1 g/dL (1.3-3.2); Glucose 108 mg/dl (74-100); HDL Cholesterol 12 mg/dl (40-60); Magnesium 1.4 mg/dl (1.6-2.3); Phosphorous 2.8 mg/dl (2.5-4.5); Potassium 3.6 mmoL/L (3.5-5.1); Sodium 136 mmol/L (136-145); Total Protein,Serum 4.4 g/dl (6.3-8.2); Triglycerides 235 mg/dl (30-150); VLDL Cholesterol 47 mg/dL (0-40)
[2022-08-16 08:29] LABS: Direct LDL Cholesterol < 30.00 mg/dL (100-129)
--- NOTE | 2022-08-16 10:10 | ECG_ITS ---
APPROVED REPORT Exam: Resting ECG HR:85 bpm ECG Measurements Heart Rate 85 AXES MN 145 P 35 QRSd 77 QRS 45 QT 342 T 30 QTc 385 Conclusion SINUS RHYTHM MINIMAL ST DEPRESSION [0.025+ mV ST DEPRESSION] BORDERLINE ECG UNCONFIRMED REPORT Electronically signed by : Robert Zayas MD 08/16/2022 21:43:52
[2022-08-16 10:23] LABS: Basophils % 0.1 % (0.1-2.0); Lymphocytes # 0.6 K/mm3 (0.7-4.5); Monocytes # 0.3 K/mm3 (0.1-1.0)
[2022-08-16 10:24] VITALS: BP 101/55; PULSE 83; RESP 16; TEMP 37; O2SAT 94
--- NOTE | 2022-08-16 10:25 | EXP.ACUTE.PN ---
Subjective *Date: 08/16/22 *Time: 11:59 Interval history: Patient feeling much better this morning. Afebrile overnight. Tolerating p.o. intake. Denies any dysuria or flank pain beyond her chronic low back pain. No chest pain or shortness of breath. Stable on room air. Medical Exam Vital signs and Labs for Last 24 Hours: Vital Signs Temp Pulse Pulse Resp BP BP Pulse Ox 08/16/22 07:16 98.3 F 81 16 85/50 L 92 L 08/16/22 04:00 98.3 F 90 19 90/51 L 91 L 08/16/22 00:00 103 F H 104 H 18 109/57 L 96 08/15/22 20:00 98.4 F 81 16 98/49 L 99 08/15/22 19:48 97.7 F 91 H 18 105/73 L 08/15/22 19:00 103/74 L 08/15/22 18:58 95 H 105/68 L 88 L 08/15/22 18:30 91 H 89/49 L 100 08/15/22 17:45 97.7 F 72 18 123/58 L 93 L Intake and Output 08/15/22 08/16/22 08/16/22 23:59 07:59 15:59 Intake Total 2286 / 2286 Output Total 0 / 0 Balance 2286 / 2286 Intake: Intake, Oral Amount 480 / 480 Intake, Total IV Amount 1806 / 1806 0.9 % Sodium Chloride 1000ML 1, 196 / 196 000 ml @ 50 mls/hr IV .Q20H [facility] Rx#:[id number] 0.9 % Sodium Chloride 1000ML 1, 1610 / 1610 610 ml @ 805 mls/hr IV .Q2H [facility] Rx#:[id number] Output: Output, Urine Amount 0 / 0 Other: Number of Unmeasured Voids 0 Weight 53.66 kg 53.252 kg Patient Weight 08/16/22 23:59 Weight 53.252 kg Laboratory Results - last 24 hr 08/15/22 17:57: WBC 21.9 H* D, RBC 4.58, Hgb 10.9 L, Hct 34.3 L, MCV 75.0 L, MCH 23.8 L, MCHC 31.8, RDW 17.4, Plt Count 197, MPV 8.7, Neut % (Auto) 94.9 H, Lymph % (Auto) 2.8 L, [place] % (Auto) 1.8, Eos % (Auto) 0.5, Baso % (Auto) 0.1, Neut # (Auto) 20.7 H, Lymph # (Auto) 0.6 L, [place] # (Auto) 0.4, Eos # (Auto) 0.1, Baso # (Auto) 0.0, Total Counted 100, Neutrophils % (Manual) 94 H, Band Neutrophils % 1.0, Lymphocytes % (Manual) 4 L, Monocytes % (Manual) 1 L, Platelet Estimate Normal, Hypochromasia 2+, Microcytosis 1+, Ovalocytes 1+, Netta Cells 1+ 08/15/22 17:57: Sodium 133 L, Potassium 3.2 L, Chloride 93 L, Carbon Dioxide 20 L, Anion Gap 23.2 H, BUN 32 H D, Creatinine 1.50 H D, Estimated Creat Clear 28, Estimated GFR 34 L, Est GFR ( Amer) 41 L D, Glucose 166 H, Calcium 8.0 L, Total Bilirubin 0.9, AST 56 H, ALT 44, Alkaline Phosphatase 100, Total Protein 6.5, Albumin 3.4 L, Globulin 3.1, Albumin/Globulin Ratio 1.1 08/15/22 18:31: Lactate 4.3 H 08/15/22 18:36: SARS-CoV-2 (PCR) Not detected, Influenza A Untype (PCR) Not detected, Influenza Type B (PCR) Not detected 08/15/22 21:21: POC Glucose 178 H 08/15/22 22:45: Lactate 6.8 H 08/16/22 01:40: Lactate 1.4 08/16/22 05:29: POC Glucose 118 H 08/16/22 07:45: Sodium 136, Potassium 3.6, Chloride 106, Carbon Dioxide 21 L, Anion Gap 12.6, BUN 28 H, Creatinine 1.20 H, Estimated Creat Clear 36, Estimated GFR 44 L, Est GFR ( Amer) 53 L D, Glucose 108 H D, Calcium 6.9 L, Phosphorus 2.8, Magnesium 1.4 L, Total Bilirubin 0.7, AST 41 H D, ALT 23 D, Alkaline Phosphatase 57, Total Protein 4.4 L D, Albumin 2.3 L D, Globulin 2.1, Albumin/Globulin Ratio 1.1, Triglycerides 235 H, Cholesterol 80 L, LDL Cholesterol Direct < 30.00 L, VLDL Cholesterol 47 H, HDL Cholesterol 12 L, Cholesterol/HDL Ratio 6.7 H I & O for Labs for Last 24 Hours: Intake & Output 08/13/22 08/14/22 08/15/22 08/16/22 23:59 23:59 23:59 23:59 Intake Total 2286 / 2286 Output Total 0 / 0 Balance 228 / 2286 Weight 53.66 kg 53.252 kg Constitutional: Present no acute distress and average body habitus Head: Present atraumatic and normocephalic ENT: Present normal exam Comment:: Bruise left anterior neck Respiratory: Present normal respiratory effort; Absent rhonchi, wheezes or crackles Cardiac: Present Reg Rate and Rhythm GI: Present soft and normal bowel sounds; Absent distention or tenderness Extremities: Present normal inspection and full ROM Skin: Present intact; Absent erythema Neuro: Present Grossly Intact,
[2022-08-16 10:28] LABS: Eosinophils # 0.1 K/mm3 (0.0-0.4); Eosinophils % 0.6 % (0.1-12.0); Hematocrit 26.6 % (37.0-47.0); Lymphocytes % 4.8 % (10-50); Mean Corpuscular HGB Conc 33.4 g/dL (31.8-35.4); Mean Corpuscular Hemoglobin 24.4 pg (27.0-31.2); Monocytes % 2.8 % (1.7-9.3); Neutrophils # 11.2 K/mm3 (1.8-7.8); Neutrophils % 91.7 % (37.0-80.0); Platelet Count 151 K/mm3 (142-424); Red Blood Count 3.64 M/mm3 (4.20-5.40); Red Cell Distribution Width 17.5 % (11.5-17.5); White Blood Count 12.2 K/mm3 (4.8-10.8)
[2022-08-16 10:30] LABS: Hemoglobin 8.9 g/dL (12.2-16.2); MANUAL DIFFERENTIAL MANUAL DIFFERENTIAL (MANUAL DIFF)
[2022-08-16 10:47] LABS: Hemoglobin A1C 7.2 % (4.0-6.0)
[2022-08-16 10:50] LABS: Anisocytosis 1+; Lymphocytes % 1 % (10-50); Monocytes % 3 % (2-9); Neutrophils % 96 % (42-76); Ovalocytes 1+; Platelet Estimate Slight Decrease; Total Cells Counted 100
[2022-08-16 10:56] LABS: Microscopic, Urine URINE MICROSCOPIC (MICROSCOPIC)
[2022-08-16 10:58] LABS: Appearance,Urine CLEAR (Clear); Bilirubin,Urine Negative (Negative); Blood, Urine 2+ (Negative); Color,Urine YELLOW (Yellow); Glucose,Urine (UA) Negative (Negative); Ketones,Urine Negative (Negative); Leukocyte Esterase,Urine TRACE (Negative); Nitrate,Urine Negative (Negative); PH,Urine 6.5 (5.0-8.5); Protein,Urine 2+ (Negative); Specific Gravity, Urine 1.015 (1.005-1.030); Urobilinogen,Urine 0.2 EU/dl (0.2)
[2022-08-16 11:11] LABS: Bacteria,Urine 1+ /lpf; Squamous Epithelial Cell,Urine Occasional #/hpf (0-5)
[2022-08-16 14:26] VITALS: BP 103/73; PULSE 94; RESP 18; TEMP 37.6; O2SAT 96
[2022-08-16 16:47] LABS: POC Glucose,Bedside 130 (70-110)
--- NOTE | 2022-08-16 18:13 | PC.NURSE ---
Patient complained of chest pain at beginning of shift. Pain did not radiate and patient stated she didn't know how to describe the pain, it was just pain. VS stable and EKG obtained. MD notified. No orders placed. Patient did not complain of chest pain after ekg obtained. IV antibiotic given. Patient remained on room air. Lung sounds clear. Some nausea noted and zofran given. Relief of symptoms noted.
[2022-08-16 20:00] VITALS: BP 104/60; PULSE 94; RESP 16; TEMP 37.1; O2SAT 92; O2SAT 98
[2022-08-16 21:26] LABS: POC Glucose,Bedside 127 (70-110)
[2022-08-17] VITALS: BP 111/54; PULSE 67; RESP 16; TEMP 38.2; O2SAT 100
--- NOTE | 2022-08-17 03:11 | PC.NURSE ---
pt. is aox 3, 22g R fa SL, up with assist times 1, had a temp of 100.8 during the night, call mays in reach, no other changes noted.
[2022-08-17 04:00] VITALS: BP 102/60; PULSE 85; RESP 16; TEMP 37.6; O2SAT 97; BMI 24.3
[2022-08-17 05:43] LABS: POC Glucose,Bedside 107 (70-110)
[2022-08-17 06:45] LABS: Alanine Aminotransferase 22 U/L (12-78); Albumin Level 2.6 g/dl (3.5-5.0); Alkaline Phosphatase 76 U/L (38-126); Aspartate Amino Transferase 42 U/L (14-36); Bilirubin,Total 0.6 mg/dl (0.2-1.3); Blood Urea Nitrogen 23 mg/dl (7-17); Calcium 7.5 mg/dl (8.4-10.2); Carbon Dioxide 18 mmol/L (22.0-30.0); Chloride 102 mmol/L (98-107); Creatinine Clearance Estimated 41 mL/min (50-200); Estimated Glomerular Filt Rate 49 ml/min (>60); GFR (African American) 59 ML/MIN (>60); Globulin 2.7 g/dL (1.3-3.2); Glucose 95 mg/dl (74-100); Magnesium 2.1 mg/dl (1.6-2.3); Sodium 136 mmol/L (136-145); Total Protein,Serum 5.3 g/dl (6.3-8.2)
[2022-08-17 07:00] LABS: Basophils % 0.2 % (0.1-2.0); Eosinophils % 0.1 % (0.1-12.0); Hematocrit 27.9 % (37.0-47.0); Hemoglobin 8.9 g/dL (12.2-16.2); Lymphocytes # 1.2 K/mm3 (0.7-4.5); Mean Corpuscular Hemoglobin 24.2 pg (27.0-31.2); Mean Corpuscular Volume 75.5 fl (81-99); Monocytes # 0.4 K/mm3 (0.1-1.0); Monocytes % 3.5 % (1.7-9.3); Neutrophils # 9.2 K/mm3 (1.8-7.8); Neutrophils % 85.2 % (37.0-80.0); Platelet Count 175 K/mm3 (142-424); Red Blood Count 3.69 M/mm3 (4.20-5.40); Red Cell Distribution Width 17.5 % (11.5-17.5); White Blood Count 10.8 K/mm3 (4.8-10.8)
[2022-08-17 07:02] LABS: MANUAL DIFFERENTIAL MANUAL DIFFERENTIAL (MANUAL DIFF)
--- NOTE | 2022-08-17 07:12 | PC.NURSE ---
. called about pt's potassium of 3 called by lab.
--- NOTE | 2022-08-17 07:19 | EXP.DC.SUM ---
General Admission date:: 08/15/22 Discharge date: 08/17/22 HPI HPI HPI: Ms. Canales is a 71 year old female who was treated in the ER for acute cystitis. Urinalysis was abnormal. Labs at that time were unremarkable. Therefore, she was discharged home on Macrobid 100 mg po BID x 7 days. Since starting the medication, patient has been experiencing nausea and vomiting. She presented to the ER this evening for further evaluation and work-up. Repeat labs demonstrated profound leukocytosis with WBC 21.9. Chemistry demonstrated REENA with CR increased from 0.9 to 1.5. Her lactate was elevated at 4.5. She was afebrile, but stated she had experienced chills and shaking prior to coming in. She was treated with IVF bolus and Rocephin 1 gm IV. Review of preliminary urine culture is growing gram negative rods. Discussion with ER physician, Dr. Murphy, agree to admit patient with early urosepsis, failed outpatient therapy. Hospital Course Hospital Course Hospital Course: 71-year-old female who failed outpatient therapy for UTI, presented with sepsis.? Symptoms defervesced since admission, tolerating Rocephin.? Has been afebrile for over 24 hours. Tolerating p.o. intake. Meeting discharge criteria. Problems addressed as follows: Acute Pyelonephritis with Early Urosepsis, Failed Outpatient Treatment Preliminary urine culture from 08/13/2022 growing gram negative rods. Marked leukocytosis on admission at 21,000, normalized to 10.8 on day of discharge. Blood cultures remain negative at 48 hours. Responded well to cephalosporins with normalization of white cell count. Will transition to oral cefdinir to complete 7 days of antibiotic therapy. REENA with suspected underlying CKD: Baseline 0.9. 1.5 on admission. 1.1 on day of discharge. Recommend monitoring at follow-up with repeat labs in 4 to 6 weeks. DM, Type 2: A1c 7.2. Monitored with fingersticks ACHS, sliding scale insulin initiated. Resume home meds at discharge. Primary Essential HTN: Well-controlled without meds. Held bisoprolol and HCTZ due to low blood pressure. Recommend reviewing necessity follow-up with PCP. Mixed Hyperlipidemia: On atorvastatin 40 mg q pm. Lipid level controlled. Continue home regimen GERD: On PPI at home. Will continue. Anemia Iron deficient anemia. Iron studies very low. Above threshold for transfusion. One dose of venofer prior to DC. Initiate PO iron supplement daily. Needs monitoring with repeat labs in 4-6 weeks. Would benefit from further work-up for source of anemia, recommend updating cancer screenings. Medically stable for discharge home. Complete antibiotics as prescribed. Follow-up with PCP in 1 to 2 weeks for further evaluation of her anemia and to monitor for resolution of symptoms. Exam Data for Last 24 hours Vital signs and Labs for Last 24 Hours: Temp Pulse Resp BP Pulse Ox 99.6 F 85 16 102/60 L 97 08/17/22 04:00 08/17/22 04:00 08/17/22 04:00 08/17/22 04:00 08/17/22 04:00 Laboratory Results - last 24 hr 08/15/22 21:21: POC Glucose 178 H 08/16/22 07:45: Sodium 136, Potassium 3.6, Chloride 106, Carbon Dioxide 21 L, Anion Gap 12.6, BUN 28 H, Creatinine 1.20 H, Estimated Creat Clear 36, Estimated GFR 44 L, Est GFR ( Amer) 53 L D, Glucose 108 H D, Calcium 6.9 L, Phosphorus 2.8, Magnesium 1.4 L, Total Bilirubin 0.7, AST 41 H D, ALT 23 D, Alkaline Phosphatase 57, Total Protein 4.4 L D, Albumin 2.3 L D, Globulin 2.1, Albumin/Globulin Ratio 1.1, Triglycerides 235 H, Cholesterol 80 L, LDL Cholesterol Direct < 30.00 L, VLDL Cholesterol 47 H, HDL Cholesterol 12 L, Cholesterol/HDL Ratio 6.7 H 08/16/22 10:08: WBC 12.2 H D, RBC 3.64 L, Hgb 8.9 L D, Hct 26.6 L, MCV 73.0 L, MCH 24.4 L, MCHC 33.4, RDW 17.5, Plt Count 151, MPV 9.0, Neut % (Auto) 91.7 H, Lymph % (Auto) 4.8 L, [place] % (Auto) 2.8, Eos % (Auto) 0.6, Baso % (Auto) 0.1, Neut # (Auto) 11.2 H, Lymph # (Auto) 0.6 L, [place] # (Auto) 0.3, Eos # (Auto) 0.1, Baso # (Auto) 0.0, Total Counted 100
[2022-08-17 07:30] LABS: Iron 17 ug/dL (37-170)
[2022-08-17 07:40] LABS: Total Iron Binding Capacity 265 ug/dL (265-497)
[2022-08-17 07:47] LABS: Lymphocytes % 8 % (10-50); Monocytes % 2 % (2-9); Neutrophils % 90 % (42-76); Platelet Estimate Normal; Total Cells Counted 100
[2022-08-17 07:48] LABS: Microcytosis 1+
[2022-08-17 08:00] VITALS: BP 102/59; PULSE 87; RESP 18; TEMP 36.9; O2SAT 96
[2022-08-17 12:00] VITALS: BP 115/62; PULSE 74; RESP 18; TEMP 36.4; O2SAT 97
[2022-08-17 12:03] LABS: POC Glucose,Bedside 149 (70-110)
--- NOTE | 2022-08-17 13:35 | HMH.PHAINT1 ---
Pharmacy Intervention Comments: DISCHARGE MEDICATION COUNSELING PROVIDED. DISCUSSED STOPPING THE BISOPROLOL AND MACROBID AND STARTING THE FOLLOWING: -CEFDINIR (ANTIBIOTIC, TWICE DAILY, TAKE WITH FOOD, MAY CAUSE N/V/D) -FERROUS SULFATE (IRON SUPPLEMENT, DAILY, CAN TAKE WITH FOOD, NAUSEA POSSIBLE, MAY DARKEN STOOLS, CONSTIPATION POSSIBLE) PATIENT VERBALIZED NO QUESTIONS AT THIS TIME.
--- NOTE | 2022-08-18 12:49 | CARE MANAGER ---
Called and spoke with patient regarding recent discharge. Patient stated that she is feeling better, and has started new medication prescribed at discharge. No complaints/concerns voiced at time of call.
[2022-08-18 14:23] LABS: Transferrin 184 mg/dL (192-364)
== END 2022-08-17 12:56 | disposition home or self-care (01) | DRG 872 ==
LOC: ER 18:34 → 2ND 19:53
PROVIDERS: Nurse Practitioner; Admitting Provider Internal Medicine Adolescent Medicine; Emergency Provider Emergency Medicine; PCP Family Medicine; Visit Provider Internal Medicine Adolescent Medicine
DX: A41.9 Sepsis, unspecified organism (principal); N10 Acute pyelonephritis; N17.9 Acute kidney failure, unspecified; I10 Essential (primary) hypertension; K21.9 Gastro-esophageal reflux disease without esophagitis; E87.6 Hypokalemia; E11.9 Type 2 diabetes mellitus without complications; E78.2 Mixed hyperlipidemia; D50.9 Iron deficiency anemia, unspecified
CPT/HCPCS: 36415; 80053; 80061; 81001; 82962; 83036; 83540; 83550; 83605; 83735; 84100; 84466; 85007; 85025; 87040; 87086; 93005; 99285; C9803; J0696; J1756; J2405; J3475; U0003; U0005

== ENCOUNTER 2022-09-12 15:01 | Emergency (ER) | payer MEDICARE, OTHER, SELFPAY ==
[2022-09-12 15:02] VITALS: BP 159/83; PULSE 77; RESP 18; TEMP 36.5; O2SAT 98; BMI 22.6
--- NOTE | 2022-09-12 15:19 | PC.NURSE ---
urine and labs sent.
--- NOTE | 2022-09-12 15:20 | HMH.EDGENADL ---
Discharge Plan Disposition Patient Disposition: Home, Self-Care Prescriptions Prescriptions: New sulfamethoxazole-trimethoprim [Bactrim DS] 800-160 mg tablet 1 tab PO BID 7 Days Qty: 14 0RF No Action cholecalciferol (vitamin D3) 25 mcg (1,000 unit) capsule 25 mcg PO DAILY esomeprazole magnesium 40 mg capsule,delayed release(DR/EC) 40 mg PO DAILY metformin 500 mg tablet 500 mg PO BID paroxetine HCl 25 mg tablet extended release 24 hr 50 mg PO DAILY loratadine 10 tablet 10 mg PO DAILY Label Comments: clonazepam 1 MG tablet 1 mg PO TID ibuprofen-famotidine 800-26.6 mg tablet 1 tab PO TIDP PRN (Reason: INFLAMMATION/PAIN) Label Comments: TAKE ONE TABLET BY MOUTH THREE TIMES DAILY NEEDED atorvastatin 40 mg tablet 40 mg PO HS hydrocodone-acetaminophen 5-325 mg tablet 1 tab PO DAILY hydrochlorothiazide 12.5 mg tablet 12.5 mg PO DAILY cefdinir 300 mg capsule 300 mg PO BID 4 Days Qty: 8 0RF ferrous sulfate 324 mg (65 mg iron) tablet,delayed release (DR/EC) 324 mg PO DAILY 30 Days Qty: 30 2RF Referrals Follow up/Referrals: Kimmy López APRN [Primary Care Provider] - See instructions Activity Restrictions/Add. Instructions Additional Instructions/Restrictions: You have a recurrent urinary tract infection a urine culture has been sent. You are most recently on Omnicef, we will use different agent this time which is Bactrim. Please make sure you follow-up with primary care doctor regarding your culture and sensitivity to make sure you are on the right antibiotic. Your hemoglobin is improving but you need to follow-up with a GI doctor if you have not had a recent colonoscopy. Return to the emergency department any worsening symptoms. Clinical Impressions Clinical Impression: Recurrent urinary tract infection, Acute lower GI bleeding, Chronic anemia Instructions Patient Instructions: DI for Urinary Tract Infection (UTI), DI for Urinary Tract Infection in Children Discharge ED Provider: Bridget Almaguer General Adult HPI General Chief complaint: Urogenital-Female Stated complaint: blood in stool,possible UTI Time Seen by Provider: 09/12/22 15:20 Mode of Arrival: Ambulatory Source of Information: Patient Limitations: No Limitations Description of Symptoms (Recalled from ER Triage Doc. by RN): pt presents to ED stating that this am she noticed blood when she wiped. pt reports she has a hemorhoid, pt states she also has burning with urination and was recently hospitalized for an UTI. History of Present Illness HPI narrative: Patient is a 71-year-old female presenting with complaints of hematochezia as well as dysuria. She was recently admitted about a month ago for acute kidney injury and sepsis associated with urinary tract infection. She improved from that. She stated that she has a known history of hemorrhoids and had some small amount of blood when wiping. She does not know when her last colonoscopy was not has no history of diverticulitis or diverticulosis that she is aware of and has no abdominal pain associate with this today. She states that she has felt some irritation in her urethral area and her symptoms are similar to the urinary tract infection she had recently. She is not any anticoagulation or antiplatelet agents that she is aware of. Related Data Home Medications Medication Instructions Recorded Confirmed loratadine 10 mg tablet 10 mg PO DAILY allergies 07/02/17 08/15/22 clonazepam 1 mg tablet 1 mg PO TID Anxiety 11/18/18 08/15/22 cholecalciferol (vitamin D3) 25 25 mcg PO DAILY Supplement 08/28/19 08/15/22 mcg (1,000 unit) capsule esomeprazole magnesium 40 mg 40 mg PO DAILY Acid reflux 07/18/20 08/15/22 capsule,delayed release metformin 500 mg tablet 500 mg PO BID Diabetes 07/18/20 08/15/22 paroxetine HCl 25 mg 50 mg PO DAILY Depression 07/18/20 08/15/22 tablet,extended release 24 hr atorvastatin 4
[2022-09-12 15:25] LABS: Microscopic, Urine URINE MICROSCOPIC (MICROSCOPIC)
[2022-09-12 15:28] LABS: Basophils # 0.1 K/mm3 (0-0.2); Basophils % 0.5 % (0.1-2.0); Eosinophils # 0.3 K/mm3 (0.0-0.4); Eosinophils % 2.9 % (0.1-12.0); Hematocrit 42.7 % (37.0-47.0); Hemoglobin 12.8 g/dL (12.2-16.2); Lymphocytes # 3.2 K/mm3 (0.7-4.5); Lymphocytes % 32.3 % (10-50); Mean Corpuscular HGB Conc 29.9 g/dL (31.8-35.4); Mean Corpuscular Hemoglobin 23.9 pg (27.0-31.2); Mean Corpuscular Volume 79.8 fl (81-99); Mean Platelet Volume 8.1 fl (7.4-10.4); Monocytes # 0.4 K/mm3 (0.1-1.0); Monocytes % 3.8 % (1.7-9.3); Neutrophils # 6.1 K/mm3 (1.8-7.8); Neutrophils % 60.5 % (37.0-80.0); Platelet Count 341 K/mm3 (142-424); Red Blood Count 5.35 M/mm3 (4.20-5.40); Red Cell Distribution Width 18.1 % (11.5-17.5)
--- NOTE | 2022-09-12 15:28 | PC.NURSE ---
went in with MD for exam.
[2022-09-12 15:29] LABS: Appearance,Urine CLEAR (Clear); Bilirubin,Urine Negative (Negative); Blood, Urine 2+ (Negative); Color,Urine YELLOW (Yellow); Glucose,Urine (UA) Negative (Negative); Ketones,Urine Negative (Negative); Leukocyte Esterase,Urine 3+ (Negative); Nitrate,Urine Negative (Negative); Protein,Urine TRACE (Negative); Urobilinogen,Urine 0.2 EU/dl (0.2)
[2022-09-12 15:30] LABS: Chloride 103 mmol/L (98-107); Potassium 4.3 mmoL/L (3.5-5.1); Sodium 138 mmol/L (136-145)
[2022-09-12 15:33] LABS: Alanine Aminotransferase 65 U/L (12-78); Albumin Level 4.1 g/dl (3.5-5.0); Albumin/Globulin Ratio 1.1 (1.1-1.8); Alkaline Phosphatase 130 U/L (38-126); Anion Gap 17.3 mEq/L (5-15); Aspartate Amino Transferase 134 U/L (14-36); Bilirubin,Total 0.6 mg/dl (0.2-1.3); Blood Urea Nitrogen 18 mg/dl (7-17); Calcium 9.6 mg/dl (8.4-10.2); Carbon Dioxide 22 mmol/L (22.0-30.0); Creatinine Clearance Estimated 42 mL/min (50-200); Estimated Glomerular Filt Rate 62 ml/min (>60); GFR (African American) 74 ML/MIN (>60); Globulin 3.6 g/dL (1.3-3.2); Glucose 123 mg/dl (74-100); Total Protein,Serum 7.7 g/dl (6.3-8.2)
[2022-09-12 15:43] VITALS: BP 159/83; PULSE 77; RESP 18; TEMP 36.5; O2SAT 98
[2022-09-12 15:47] LABS: Bacteria,Urine Trace /lpf; Squamous Epithelial Cell,Urine Occasional #/hpf (0-5)
== END 2022-09-12 15:50 | disposition home or self-care (01) ==
PROVIDERS: Emergency Provider Student in an Organized Health Care Education/Training Program; PCP Nurse Practitioner Family
DX: K92.2 Gastrointestinal hemorrhage, unspecified (principal); D64.9 Anemia, unspecified; N39.0 Urinary tract infection, site not specified; I10 Essential (primary) hypertension; E78.5 Hyperlipidemia, unspecified; F17.200 Nicotine dependence, unspecified, uncomplicated
CPT/HCPCS: 80053; 81001; 85025; 87086; 87088; 87186; 99284

== ENCOUNTER → 2022-09-17 12:51 | Outpatient (POV) | payer MEDICARE, OTHER, SELFPAY ==
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
[2022-09-17 14:20] VITALS: BP 122/83; PULSE 66; RESP 18; O2SAT 97; BMI 24.4
[2022-09-17 14:37] LABS: Amphetamine/Metha Screen,Urine Negative ng/ml (<1000); Barbiturates Screen,Urine Negative ng/ml (<200)
[2022-09-17 14:38] LABS: Benzodiazepines Screen,Urine Negative ng/ml (<200); Cannabinoid Screen,Urine Negative ng/ml (<50)
[2022-09-17 14:39] LABS: Cocaine Screen,Urine Negative ng/ml (<300)
[2022-09-17 14:40] LABS: Methadone Screen,Urine Negative ng/ml (<300); Opiate Screen,Urine Positive ng/ml (<300)
[2022-09-17 14:41] LABS: Phencyclidine Screen,Urine Negative ng/ml (<25)
[2022-09-22 13:54] LABS: Codeine Negative (Cutoff=100); Hydrocodone Positive (.); Hydromorphone Negative (Cutoff=100); Morphine Negative (Cutoff=100); Opiates Positive (.)
== END | disposition home or self-care (01) ==
PROVIDERS: PCP Nurse Practitioner Family; Visit Provider Nurse Practitioner Family
DX: M51.16 Intervertebral disc disorders with radiculopathy, lumbar region (principal); Z79.891 Long term (current) use of opiate analgesic; M17.0 Bilateral primary osteoarthritis of knee
CPT/HCPCS: 80305; 80361; 80365; 99212; G0463; G0480

== ENCOUNTER → 2022-10-15 12:47 | Outpatient (POV) | payer MEDICARE, OTHER, SELFPAY ==
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
[2022-10-15 13:45] VITALS: BP 149/70; PULSE 67; RESP 18; O2SAT 99; BMI 24.2
== END | disposition home or self-care (01) ==
PROVIDERS: PCP Nurse Practitioner Family; Visit Provider Nurse Practitioner Family
DX: M51.16 Intervertebral disc disorders with radiculopathy, lumbar region (principal); M17.0 Bilateral primary osteoarthritis of knee
CPT/HCPCS: 99212; G0463

== ENCOUNTER → 2022-11-12 13:45 | Outpatient (POV) | payer MEDICARE, OTHER, SELFPAY ==
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
[2022-11-12 15:12] VITALS: BP 132/66; PULSE 60; RESP 18; O2SAT 99; BMI 24.2
== END | disposition home or self-care (01) ==
PROVIDERS: Visit Provider Nurse Practitioner Family
DX: M51.16 Intervertebral disc disorders with radiculopathy, lumbar region (principal); M17.0 Bilateral primary osteoarthritis of knee
CPT/HCPCS: 99212; G0463

== ENCOUNTER 2022-11-26 13:07 | Emergency (ER) | payer MEDICARE, OTHER, SELFPAY ==
[2022-11-26] VITALS (7 sets, daily range): BP systolic 119–162; BP diastolic 60–90; PULSE 60–62; RESP 16–18; TEMP 36.3–36.4; O2SAT 98–100; BMI 23.0
--- NOTE | 2022-11-26 15:03 | HMH.EDGENADL ---
Discharge Plan Disposition Condition: Good Chief Complaint: PAIN Prescriptions Prescriptions: No Action cholecalciferol (vitamin D3) 25 mcg (1,000 unit) capsule 25 mcg PO DAILY esomeprazole magnesium 40 mg capsule,delayed release(DR/EC) 40 mg PO DAILY metformin 500 mg tablet 500 mg PO BID paroxetine HCl 25 mg tablet extended release 24 hr 50 mg PO DAILY loratadine 10 tablet 10 mg PO DAILY Patient Comments: clonazepam 1 MG tablet 1 mg PO TID ibuprofen-famotidine 800-26.6 mg tablet 1 tab PO TIDP PRN (Reason: INFLAMMATION/PAIN) Qty: 90 0RF bisoprolol fumarate 5 mg tablet 2.5 mg PO DAILY ferrous sulfate 324 mg (65 mg iron) tablet,delayed release (DR/EC) 324 mg PO DAILY atorvastatin 40 mg tablet 40 mg PO HS hydrocodone-acetaminophen 5-325 mg tablet 1 tab PO DAILY Qty: 30 0RF Referrals Follow up/Referrals: Deneen Noriega MD [Primary Care Provider] - See instructions Activity Restrictions/Add. Instructions Additional Instructions/Restrictions: Please follow-up with your primary care provider. Please return to the emergency department if you develop any new or worsening symptoms or become concerned for your health. Clinical Impressions Clinical Impression: Right flank pain Discharge ED Provider: Thor Little Adult HPI General Chief complaint: PAIN Stated complaint: flank pain Time Seen by Provider: 11/26/22 15:00 Mode of Arrival: EMS Source of Information: Patient Limitations: No Limitations Description of Symptoms (Recalled from ER Triage Doc. by RN): Presents to ED with c/o constant right sided flank pain that began yesterday. Patient reports pain is worse upon ambulation; patient took Rx'd Lortab and 200mg Ibuprofen at 0900 with some relief. Patient reports having reoccurent UTI's and also states she has a CT scheduled for next Wednesday. Patient denies urinary symptoms or fever [employer]. History of Present Illness HPI narrative: 72-year-old female reported history of frequent UTIs, no history of kidney stones, history of chronic back pain stimulator presents with 2 days of right-sided flank pain. Pain is worse with movement. Patient has taken pain meds at home with some relief. She reports no fevers. Reports that she has had somewhat less urination than she was having previously. She reports that she just finished a round of antibiotics earlier this week but is unsure what it was called. She reports that she has a follow-up with a bladder specialist in the next week to have a CT scan and labs drawn. Reports history of cholecystectomy, no history of appendectomy. Related Data Home Medications Medication Instructions Recorded Confirmed loratadine 10 mg tablet 10 mg PO DAILY allergies 07/02/17 11/12/22 clonazepam 1 mg tablet 1 mg PO TID Anxiety 11/18/18 11/12/22 cholecalciferol (vitamin D3) 25 25 mcg PO DAILY Supplement 08/28/19 11/12/22 mcg (1,000 unit) capsule esomeprazole magnesium 40 mg 40 mg PO DAILY Acid reflux 07/18/20 11/12/22 capsule,delayed release metformin 500 mg tablet 500 mg PO BID Diabetes 07/18/20 11/12/22 paroxetine HCl 25 mg 50 mg PO DAILY Depression 07/18/20 11/12/22 tablet,extended release 24 hr atorvastatin 40 mg tablet 40 mg PO HS Cholesterol 08/16/22 11/12/22 ferrous sulfate 324 mg (65 mg 324 mg PO DAILY SUPPLIMENT 09/17/22 11/12/22 iron) tablet,delayed release bisoprolol fumarate 5 mg tablet 2.5 mg PO DAILY BLOOD PRESSURE 10/15/22 11/12/22 Previous Rx's Medication Instructions Recorded ibuprofen 800 mg-famotidine 26.6 1 tab PO TIDP PRN 10/15/22 mg tablet INFLAMMATION/PAIN #90 tabs hydrocodone 5 mg-acetaminophen 325 1 tab PO DAILY Pain #30 tabs 11/12/22 mg tablet Allergies Allergy/AdvReac Type Severity Reaction Status Date / Time pregabalin [From Lyrica] Allergy Severe swelling Verified 07/15/22 14:24 in face gabapentin Allergy Intermediate NA-HALLUCIN Verified 07/15/22 14:24
--- NOTE | 2022-11-26 15:18 | PC.NURSE ---
Dr. Little at bedside
--- NOTE | 2022-11-26 15:22 | PC.NURSE ---
Pt given a pillow for comfort and water in attempt to collect a urine specimen.
--- NOTE | 2022-11-26 15:25 | PC.NURSE ---
Patient ambulated to bathroom with Joceline LEE. Patient back in room call light within reach
[2022-11-26 15:35] LABS: Microscopic, Urine URINE MICROSCOPIC (MICROSCOPIC)
--- NOTE | 2022-11-26 15:39 | PC.NURSE ---
Pt called out requesting nursing staff to check her blood sugar d/t it can be high sometimes . It was 149 at this time. She also wanted to be sure that the MD was aware she had roaring and pain to her Left ear. MD notified.
--- NOTE | 2022-11-26 15:43 | PC.NURSE ---
Rounded on patient; Joceline LEE and I helped readjust patient in the bed. Call mays within reach of patient
[2022-11-26 15:47] LABS: POC Glucose,Bedside 149 (70-110)
--- NOTE | 2022-11-26 15:49 | PC.NURSE ---
Pt called out and wanted to let MD know she is having a ct scan and blood-work next Wednesday.
--- NOTE | 2022-11-26 15:57 | PC.NURSE ---
at bedside s/w pt & her daughter
[2022-11-26 16:06] LABS: Appearance,Urine CLEAR (Clear); Bilirubin,Urine Negative (Negative); Blood, Urine Negative (Negative); Color,Urine YELLOW (Yellow); Glucose,Urine (UA) Negative (Negative); Ketones,Urine Negative (Negative); Leukocyte Esterase,Urine TRACE (Negative); Nitrate,Urine Negative (Negative); Protein,Urine Negative (Negative); Specific Gravity, Urine <= 1.005 (1.005-1.030); Urobilinogen,Urine 0.2 EU/dl (0.2)
--- NOTE | 2022-11-26 16:14 | PC.NURSE ---
Rounded on patient; call mays within reach. Warm blanket provided to patient's daughter
--- NOTE | 2022-11-26 16:41 | PC.NURSE ---
Patient called out; rounded on patient. Patient requesting something to eat MD notified. ok for PO. Dietary has been called
[2022-11-26 16:45] LABS: Squamous Epithelial Cell,Urine Occasional #/hpf (0-5); WBC,Urine Occasional #/hpf (0-3)
--- NOTE | 2022-11-26 17:28 | PC.NURSE ---
pt's daughter come into ER asking can my mom go . I let her know we would be in to d/c her shortly. Updated on her wait times d/t critical pt care.
== END 2022-11-26 17:31 | disposition home or self-care (01) ==
PROVIDERS: Emergency Provider Emergency Medicine; PCP Family Medicine
DX: R10.9 Unspecified abdominal pain (principal); E11.9 Type 2 diabetes mellitus without complications; K21.9 Gastro-esophageal reflux disease without esophagitis; I10 Essential (primary) hypertension; E78.5 Hyperlipidemia, unspecified
CPT/HCPCS: 81001; 82962; 99283

== ENCOUNTER → 2022-12-04 07:44 | Outpatient (CLI) | payer MEDICARE, OTHER, SELFPAY ==
--- NOTE | 2022-12-04 07:55 | CT_ITS ---
FINAL REPORT CLINICAL HISTORY: HEMATURIA COMPARISON: None FINDINGS: The lung bases are clear. The liver is normal in size and attenuation. The gallbladder has been surgically resected. The spleen is unremarkable. The adrenals are normal. The pancreas is unremarkable. There are tiny nonobstructing stones noted in the lower poles of both kidneys. The collecting system in the left kidney is a duplex collecting system, and there is hydronephrosis in the lower pole segment of the left kidney. The upper pole of the left kidney is unremarkable in appearance. There is an 11 mm stone present at the left UPJ producing obstruction of the lower pole collecting system. This is best seen on axial image #45 of series 601. There is a stimulator device present overlying the right posterior flank. No intra-abdominal masses or adenopathy are otherwise seen. No free fluid is identified. The pelvis is unremarkable in appearance. 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 Multiple small nonobstructing renal stones are present bilaterally. Reviewed, Interpreted and Dictated by Sai Odonnell MD Transcribed by Brianna Dixon Authenticated and [facility]
[2022-12-04 08:10] LABS: Blood Urea Nitrogen 10 mg/dl (7-17); Estimated Glomerular Filt Rate 61 ml/min (>60); GFR (African American) 74 ML/MIN (>60)
== END ==
PROVIDERS: PCP Family Medicine; Visit Provider Urology
DX: R31.29 Other microscopic hematuria (principal)
CPT/HCPCS: 36415; 74178; 82565; 84520; Q9967

== ENCOUNTER → 2022-12-18 13:55 | Outpatient (POV) | payer MEDICARE, OTHER, SELFPAY ==
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
[2022-12-18 15:25] VITALS: BP 136/59; PULSE 66; RESP 18; O2SAT 95; BMI 24.2
== END | disposition home or self-care (01) ==
PROVIDERS: Visit Provider Nurse Practitioner Family
DX: M51.16 Intervertebral disc disorders with radiculopathy, lumbar region (principal); M51.14 Intervertebral disc disorders with radiculopathy, thoracic region; M50.10 Cervical disc disorder with radiculopathy, unspecified cervical region
CPT/HCPCS: 99212; G0463

== ENCOUNTER → 2023-01-18 14:05 | Outpatient (POV) | payer MEDICARE, OTHER, SELFPAY ==
[2023-01-18 14:17] VITALS: BP 151/77; PULSE 63; RESP 20; O2SAT 96; BMI 36.7
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
[2023-01-18 19:05] LABS: Amphetamine/Metha Screen,Urine Negative ng/ml (<1000); Barbiturates Screen,Urine Negative ng/ml (<200)
[2023-01-18 19:06] LABS: Benzodiazepines Screen,Urine Negative ng/ml (<200)
[2023-01-18 19:07] LABS: Cannabinoid Screen,Urine Negative ng/ml (<50); Cocaine Screen,Urine Negative ng/ml (<300)
[2023-01-18 19:08] LABS: Methadone Screen,Urine Negative ng/ml (<300)
[2023-01-18 19:09] LABS: Opiate Screen,Urine Negative ng/ml (<300); Phencyclidine Screen,Urine Negative ng/ml (<25)
[2023-01-24 12:18] LABS: Opiates Negative (Cutoff=100)
== END | disposition home or self-care (01) ==
PROVIDERS: PCP Family Medicine; Visit Provider Nurse Anesthetist, Certified Registered
DX: Z79.891 Long term (current) use of opiate analgesic (principal); M51.16 Intervertebral disc disorders with radiculopathy, lumbar region; M50.10 Cervical disc disorder with radiculopathy, unspecified cervical region; M46.1 Sacroiliitis, not elsewhere classified; M51.34 Other intervertebral disc degeneration, thoracic region
CPT/HCPCS: 80305; 80307; 80361; 80365; 99212; G0463; G0480

== ENCOUNTER → 2023-03-11 11:19 | Outpatient (POV) | payer MEDICARE, OTHER, SELFPAY ==
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
[2023-03-11 12:16] VITALS: BP 126/63; PULSE 63; RESP 18; O2SAT 97; BMI 23.0
== END | disposition home or self-care (01) ==
PROVIDERS: PCP Family Medicine; Visit Provider Nurse Practitioner Family
DX: M51.16 Intervertebral disc disorders with radiculopathy, lumbar region (principal); M17.0 Bilateral primary osteoarthritis of knee; G89.4 Chronic pain syndrome
CPT/HCPCS: 99212; G0463

== ENCOUNTER → 2023-04-28 13:06 | Outpatient (POV) | payer MEDICARE, OTHER, SELFPAY ==
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
[2023-04-28 16:00] VITALS: BP 185/77; PULSE 73; RESP 18; O2SAT 96; BMI 23.0
== END | disposition home or self-care (01) ==
PROVIDERS: PCP Family Medicine; Visit Provider Nurse Practitioner Family
DX: M51.16 Intervertebral disc disorders with radiculopathy, lumbar region (principal); M17.0 Bilateral primary osteoarthritis of knee
CPT/HCPCS: 99212; G0463

== ENCOUNTER → 2023-05-27 13:50 | Outpatient (POV) | payer MEDICARE, OTHER, SELFPAY ==
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
[2023-05-27 15:37] VITALS: BP 137/78; PULSE 78; RESP 20; O2SAT 94; BMI 23.1
[2023-05-27 16:56] LABS: Amphetamine/Metha Screen,Urine Negative ng/ml (<1000)
[2023-05-27 16:58] LABS: Benzodiazepines Screen,Urine Negative ng/ml (<200)
[2023-05-27 17:01] LABS: Cocaine Screen,Urine Negative ng/ml (<300)
[2023-05-27 17:05] LABS: Opiate Screen,Urine Positive ng/ml (<300); Phencyclidine Screen,Urine Negative ng/ml (<25)
[2023-05-27 17:10] LABS: Barbiturates Screen,Urine Negative ng/ml (<200)
[2023-05-27 17:11] LABS: Methadone Screen,Urine Negative ng/ml (<300)
[2023-05-27 17:14] LABS: Cannabinoid Screen,Urine Negative ng/ml (<50)
[2023-06-01 10:17] LABS: Codeine Negative (Cutoff=100); Hydrocodone Positive (.); Hydromorphone Positive (.); Morphine Negative (Cutoff=100); Opiates Positive (.)
== END | disposition home or self-care (01) ==
PROVIDERS: PCP Family Medicine; Visit Provider Nurse Practitioner Family
DX: Z79.891 Long term (current) use of opiate analgesic (principal); M51.16 Intervertebral disc disorders with radiculopathy, lumbar region; M17.0 Bilateral primary osteoarthritis of knee
CPT/HCPCS: 80307; 80361; 80365; 99212; G0463; G0480

== ENCOUNTER 2023-06-02 22:50 | Emergency (ER) | payer MEDICARE, OTHER, SELFPAY ==
[2023-06-02 22:33] VITALS: BP 154/76; PULSE 69; RESP 20; TEMP 37; O2SAT 97; BMI 23.4
[2023-06-02 23:00] VITALS: BP 132/81; PULSE 80; O2SAT 96
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
--- NOTE | 2023-06-02 23:06 | PC.NURSE ---
in room talking with patient at this time
[2023-06-02 23:37] LABS: Basophils # 0.1 K/mm3 (0-0.2); Basophils % 0.7 % (0.1-2.0); Eosinophils # 0.4 K/mm3 (0.0-0.4); Eosinophils % 4.1 % (0.1-12.0); Hematocrit 35.1 % (37.0-47.0); Hemoglobin 11.8 g/dL (12.2-16.2); Lymphocytes # 3.1 K/mm3 (0.7-4.5); Lymphocytes % 31.3 % (10-50); Mean Corpuscular HGB Conc 33.7 g/dL (31.8-35.4); Mean Corpuscular Hemoglobin 27.6 pg (27.0-31.2); Mean Corpuscular Volume 81.8 fl (81-99); Mean Platelet Volume 9.3 fl (7.4-10.4); Monocytes # 0.4 K/mm3 (0.1-1.0); Neutrophils % 59.9 % (37.0-80.0); Platelet Count 222 K/mm3 (142-424); Red Blood Count 4.29 M/mm3 (4.20-5.40); Red Cell Distribution Width 14.9 % (11.5-17.5); White Blood Count 9.9 K/mm3 (4.8-10.8)
[2023-06-02 23:42] LABS: Microscopic, Urine URINE MICROSCOPIC (MICROSCOPIC)
[2023-06-02 23:43] LABS: Acetone, Serum (Rapid) None Detected (None Detect)
[2023-06-02 23:44] LABS: Alanine Aminotransferase 51 U/L (12-78); Albumin Level 3.8 g/dl (3.5-5.0); Albumin/Globulin Ratio 1.3 (1.1-1.8); Alkaline Phosphatase 98 U/L (38-126); Anion Gap 12.4 mEq/L (5-15); Aspartate Amino Transferase 64 U/L (14-36); Bilirubin,Total 0.3 mg/dl (0.2-1.3); Blood Urea Nitrogen 10 mg/dl (7-17); Carbon Dioxide 22 mmol/L (22.0-30.0); Chloride 105 mmol/L (98-107); Creatinine Clearance Estimated 43 mL/min (50-200); Estimated Glomerular Filt Rate 70 ml/min (>60); GFR (African American) 85 ML/MIN (>60); Globulin 2.9 g/dL (1.3-3.2); Glucose 294 mg/dl (74-100); Potassium 4.4 mmoL/L (3.5-5.1); Sodium 135 mmol/L (136-145); Total Protein,Serum 6.7 g/dl (6.3-8.2)
[2023-06-03] VITALS: BP 117/79; PULSE 70; O2SAT 96
[2023-06-03 00:14] LABS: Appearance,Urine CLEAR (Clear); Bilirubin,Urine Negative (Negative); Blood, Urine TRACE-I (Negative); Color,Urine YELLOW (Yellow); Glucose,Urine (UA) 2+ (Negative); Ketones,Urine Negative (Negative); Leukocyte Esterase,Urine 2+ (Negative); Nitrate,Urine Negative (Negative); PH,Urine 7.5 (5.0-8.5); Protein,Urine Negative (Negative); Specific Gravity, Urine 1.015 (1.005-1.030); Urobilinogen,Urine 0.2 EU/dl (0.2)
[2023-06-03 00:16] LABS: Bacteria,Urine Trace /lpf; RBC,Urine Occasional #/hpf (0-3); Squamous Epithelial Cell,Urine Occasional #/hpf (0-5); Yeast,Urine Occasional /lpf
--- NOTE | 2023-06-03 00:23 | PC.NURSE ---
in room talking with patient at this time.
[2023-06-03] MEDS: SULFA/TRIMETHOPRIM 1 TABLET 1 EACH PO (00:46)
[2023-06-03 00:59] VITALS: BP 136/72; PULSE 80; RESP 18; TEMP 37; O2SAT 97
--- NOTE | 2023-06-08 23:54 | PC.NURSE ---
notified dr Thomas of urine culture results pt was prescribed bactrim bid X 7 days. no new orders given
== END 2023-06-03 00:59 | disposition home or self-care (01) ==
PROVIDERS: Emergency Provider Emergency Medicine; PCP Family Medicine
DX: E11.65 Type 2 diabetes mellitus with hyperglycemia (principal); N39.0 Urinary tract infection, site not specified; I10 Essential (primary) hypertension; E78.5 Hyperlipidemia, unspecified
CPT/HCPCS: 80053; 81001; 82009; 85025; 87086; 96365; 99285

== ENCOUNTER 2023-06-09 20:43 | Emergency (ER) | payer MEDICARE, OTHER, SELFPAY ==
[2023-06-09 20:46] VITALS: BP 145/72; PULSE 80; RESP 18; TEMP 36.6; O2SAT 98; BMI 23.6
--- NOTE | 2023-06-09 20:57 | ECG_ITS ---
APPROVED REPORT Exam: Resting ECG HR:63 bpm ECG Measurements Heart Rate 63 AXES SC 152 P 28 QRSd 74 QRS 29 QT 408 T 49 QTc 415 Conclusion SINUS RHYTHM NORMAL ECG UNCONFIRMED REPORT Electronically signed by : Robert Zayas MD 06/10/2023 20:02:10
[2023-06-09 21:44] VITALS: BP 115/72; PULSE 85; RESP 18; TEMP 36.7
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
== END 2023-06-09 22:00 | disposition home or self-care (01) ==
PROVIDERS: Emergency Provider Emergency Medicine; PCP Family Medicine
DX: T42.4X1A Poisoning by benzodiazepines, accidental (unintentional), initial encounter (principal); T38.3X1A Poisoning by insulin and oral hypoglycemic [antidiabetic] drugs, accidental (unintentional), initial encounter; T44.7X1A Poisoning by beta-adrenoreceptor antagonists, accidental (unintentional), initial encounter; E11.9 Type 2 diabetes mellitus without complications; E78.5 Hyperlipidemia, unspecified; I10 Essential (primary) hypertension
CPT/HCPCS: 93005; 99283

== ENCOUNTER 2023-07-08 13:13 | Outpatient (POV) | payer MEDICARE, OTHER, SELFPAY ==
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
[2023-07-08 13:36] VITALS: BP 147/72; PULSE 72; RESP 18; O2SAT 97; BMI 23.4
== END 2023-07-08 23:59 | disposition home or self-care (01) ==
PROVIDERS: PCP Family Medicine; Visit Provider Nurse Practitioner Family
DX: M51.16 Intervertebral disc disorders with radiculopathy, lumbar region (principal); M17.0 Bilateral primary osteoarthritis of knee
CPT/HCPCS: 99212; G0463

== ENCOUNTER 2023-08-11 13:57 | Outpatient (POV) | payer MEDICARE, OTHER, SELFPAY ==
[2023-08-11 14:28] VITALS: BP 116/70; PULSE 73; RESP 18; O2SAT 95; BMI 23.3
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
== END 2023-08-11 23:59 | disposition home or self-care (01) ==
PROVIDERS: PCP Family Medicine; Visit Provider Nurse Practitioner Family
DX: M51.16 Intervertebral disc disorders with radiculopathy, lumbar region (principal)
CPT/HCPCS: 99212; G0463

== ENCOUNTER 2023-09-13 13:39 | Outpatient (POV) | payer MEDICARE, OTHER, SELFPAY ==
[2023-09-13 13:46] VITALS: BP 141/66; PULSE 78; RESP 18; O2SAT 94; BMI 23.4
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
[2023-09-13 15:32] LABS: Amphetamine/Metha Screen,Urine Negative ng/ml (<1000); Benzodiazepines Screen,Urine Negative ng/ml (<200)
[2023-09-13 15:33] LABS: Barbiturates Screen,Urine Negative ng/ml (<200)
[2023-09-13 15:34] LABS: Cannabinoid Screen,Urine Negative ng/ml (<50); Cocaine Screen,Urine Negative ng/ml (<300)
[2023-09-13 15:35] LABS: Methadone Screen,Urine Negative ng/ml (<300); Opiate Screen,Urine Positive ng/ml (<300)
[2023-09-13 15:36] LABS: Phencyclidine Screen,Urine Negative ng/ml (<25)
[2023-09-19 18:29] LABS: Codeine Negative (Cutoff=100); Hydrocodone Positive (.); Hydromorphone Positive (.); Morphine Negative (Cutoff=100); Opiates Positive (.)
== END 2023-09-13 23:59 | disposition home or self-care (01) ==
PROVIDERS: PCP Family Medicine; Visit Provider Nurse Practitioner Family
DX: Z79.891 Long term (current) use of opiate analgesic (principal); M51.16 Intervertebral disc disorders with radiculopathy, lumbar region
CPT/HCPCS: 80307; 80361; 80365; 99212; G0463; G0480

== ENCOUNTER 2023-10-10 23:00 | Emergency (ER) | payer MEDICARE, OTHER, SELFPAY ==
[2023-10-10 23:01] VITALS: BP 142/69; PULSE 71; RESP 18; TEMP 36.7; O2SAT 96; BMI 21.2
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
[2023-10-10 23:30] VITALS: BP 128/72; PULSE 70; O2SAT 95
[2023-10-10] MEDS: ACETAMINOPHEN 500MG TAB 1000 MG PO (23:30)
--- NOTE | 2023-10-10 23:30 | PC.NURSE ---
Patient called out questioning that her bowel movement yesterday was green tinted. Patient reassured that stool can be various colors for a variety of reasons. Patient denies diarrhea, denies straining, states otherwise normal bowel movement.
--- NOTE | 2023-10-10 23:38 | PC.NURSE ---
Patient called out to request that she get a steroid shot in the butt , patient reasons that she goes to the pain clinic and gets steroids for her back pain. Offered to speak with the provider regarding this request. Provider notified.
--- NOTE | 2023-10-10 23:42 | PC.NURSE ---
Patient called out to inform this RN that her calves were sore. Discussed with patient possible reasons for this. Patient began discussing that her PCP had mentioned that she needed a test for asthma. Discussed with patient that if she and her PCP feel that this is something that needs to be investigated that should be something that she peruses with her family doctor. Patient reports that her daughter is coming to get her from [place]. Patient has drink at bedside, offered blankets, no further needs expressed at this time.
--- NOTE | 2023-10-10 23:47 | PC.NURSE ---
Patient called out and requested to make a phone call to her daughter. Assisted patient to call out to her daughter at this time utilizing our portable phones.
[2023-10-11 00:19] VITALS: BP 129/71; PULSE 80; RESP 18; TEMP 36.8; O2SAT 96
== END 2023-10-11 00:21 | disposition home or self-care (01) ==
PROVIDERS: Emergency Provider Emergency Medicine; PCP Family Medicine
DX: M54.50 Low back pain, unspecified (principal)
CPT/HCPCS: 99283

== ENCOUNTER 2023-10-18 14:42 | Outpatient (POV) | payer MEDICARE, OTHER, SELFPAY ==
[2023-10-18 14:50] VITALS: BP 150/73; PULSE 74; RESP 18; O2SAT 99; BMI 23.3
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
== END 2023-10-18 23:59 | disposition home or self-care (01) ==
PROVIDERS: PCP Family Medicine; Visit Provider Nurse Practitioner Family
DX: M54.16 Radiculopathy, lumbar region (principal); M54.50 Low back pain, unspecified; G89.29 Other chronic pain
CPT/HCPCS: 99212; G0463

== ENCOUNTER 2023-11-17 13:36 | Outpatient (POV) | payer MEDICARE, OTHER, SELFPAY ==
[2023-11-17 13:50] VITALS: BP 142/64; PULSE 66; RESP 16; O2SAT 95; BMI 23.6
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
== END 2023-11-17 23:59 | disposition home or self-care (01) ==
PROVIDERS: PCP Family Medicine; Visit Provider Nurse Practitioner Family
DX: M54.16 Radiculopathy, lumbar region (principal); M54.50 Low back pain, unspecified; G89.29 Other chronic pain; Z96.82 Presence of neurostimulator
CPT/HCPCS: 99212; G0463

== ENCOUNTER 2023-12-22 12:48 | Emergency (ER) | payer MEDICARE, OTHER, SELFPAY ==
[2023-12-22] VITALS (11 sets, daily range): BP systolic 134–161; BP diastolic 62–77; PULSE 56–64; RESP 18–20; TEMP 36.7; O2SAT 95–100; BMI 23.4
--- NOTE | 2023-12-22 13:02 | PC.NURSE ---
Pt requested something to drink. Advised pt that I would check with DR after he comes in to evaluate her.
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
--- NOTE | 2023-12-22 13:05 | PC.NURSE ---
DR GARNICA AT BEDSIDE
--- NOTE | 2023-12-22 13:24 | CT_ITS ---
FINAL REPORT CLINICAL HISTORY: Fall, abdominal pain COMPARISON: 12/04/2022 FINDINGS: CT OF THE ABDOMEN AND PELVIS WITH CONTRAST Axial CT images of the abdomen and pelvis were obtained after the administration of IV contrast. Coronal and sagittal reformatted images were also obtained and reviewed. This study was performed with techniques to keep radiation doses as low as reasonably achievable (ALARA). Individualized dose reduction techniques using automated exposure control or adjustment of mA and/or kV according to the patient's size were employed. Abdomen: There is mild atelectasis versus scar present in the lung bases.. The heart is normal in size. The liver has an unremarkable appearance, without evidence of mass or biliary ductal dilatation. The gallbladder has been surgically resected. The spleen is unremarkable. No adrenal mass is present. The pancreas has an unremarkable appearance. 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 Small bilateral nonobstructing renal stones are present. 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 The aorta is normal in caliber. There is no free fluid or adenopathy. No mass or abnormal fluid collection is seen. No evidence of organ injury or pneumoperitoneum is seen. Pelvis: The appendix is not well-visualized. The urinary bladder is unremarkable. No inflammatory process is seen. There is no evidence of mass or adenopathy. There is no evidence of bowel obstruction. A spinal stimulator is present. IMPRESSION: No evidence of acute intra-abdominal process. Mild atelectasis versus scar in the lung bases. Bilateral nonobstructing renal stones are again noted. Left renal duplicated collecting system reveals mild hydronephrosis once again present in the left lower pole moiety, but improved since the prior CT. Reviewed, Interpreted and Dictated by Steve Diaz III, MD Transcribed by Brianna Dixon Authenticated and [facility]
--- NOTE | 2023-12-22 13:24 | XR_ITS ---
FINAL REPORT CLINICAL HISTORY: Fall, right knee pain FINDINGS: Right knee Two views were obtained. There is no acute fracture or dislocation. The joint spaces appear normal. No soft tissue abnormality is identified. IMPRESSION: No acute process. Reviewed, Interpreted and Dictated by Steve Diaz III, MD Transcribed by Beverly Ernst Authenticated and [facility]
[2023-12-22] MEDS: ACETAMINOPHEN 500MG TAB 1000 MG PO (13:27)
[2023-12-22 14:24] LABS: Basophils # 0.1 K/mm3 (0-0.2); Basophils % 0.7 % (0.1-2.0); Eosinophils # 0.2 K/mm3 (0.0-0.4); Hematocrit 35.7 % (37.0-47.0); Hemoglobin 10.7 g/dL (12.2-16.2); Lymphocytes # 2.4 K/mm3 (0.7-4.5); Lymphocytes % 35.3 % (10-50); Mean Corpuscular Hemoglobin 23.7 pg (27.0-31.2); Mean Corpuscular Volume 79.1 fl (81-99); Mean Platelet Volume 9.1 fl (7.4-10.4); Monocytes # 0.4 K/mm3 (0.1-1.0); Monocytes % 5.2 % (1.7-9.3); Neutrophils # 3.8 K/mm3 (1.8-7.8); Neutrophils % 55.9 % (37.0-80.0); Platelet Count 194 K/mm3 (142-424); Red Blood Count 4.51 M/mm3 (4.20-5.40); Red Cell Distribution Width 16.3 % (11.5-17.5); White Blood Count 6.8 K/mm3 (4.8-10.8)
[2023-12-22 14:28] LABS: Chloride 107 mmol/L (98-107); Potassium 4.5 mmoL/L (3.5-5.1); Sodium 137 mmol/L (136-145)
[2023-12-22 14:31] LABS: Anion Gap 7.5 mEq/L (5-15); Blood Urea Nitrogen 16 mg/dl (7-17); Carbon Dioxide 27 mmol/L (22.0-30.0); Creatinine Clearance Estimated 42 mL/min (50-200); Estimated Glomerular Filt Rate 61 ml/min (>60); GFR (African American) 74 ML/MIN (>60)
[2023-12-22 14:32] LABS: Calcium 8.8 mg/dl (8.4-10.2); Glucose 179 mg/dl (74-100)
--- NOTE | 2023-12-22 14:37 | PC.NURSE ---
PT TO CT
[2023-12-22] MEDS: SODIUM CHLORIDE 0.9% 10ML SYR (RAD ONLY) 10 ML IV (14:49)
[2023-12-22] MEDS: IOPAMIDOL-370 (76%);100ML BOTTLE 75 ML IV (14:49)
== END 2023-12-22 16:47 | disposition home or self-care (01) ==
PROVIDERS: Student in an Organized Health Care Education/Training Program; Emergency Provider Emergency Medicine; PCP Family Medicine
DX: M25.561 Pain in right knee (principal); R10.9 Unspecified abdominal pain; W10.8XXA Fall (on) (from) other stairs and steps, initial encounter
CPT/HCPCS: 73560; 74177; 80048; 85025; 99284; Q9967

== ENCOUNTER 2023-12-23 10:02 | Outpatient (POV) | payer MEDICARE, OTHER, SELFPAY ==
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
== END 2023-12-23 23:59 | disposition home or self-care (01) ==
PROVIDERS: Visit Provider Nurse Practitioner Family
DX: M54.16 Radiculopathy, lumbar region (principal); M54.50 Low back pain, unspecified; G89.29 Other chronic pain; Z96.82 Presence of neurostimulator; Z79.899 Other long term (current) drug therapy
CPT/HCPCS: 99212; G0463

== ENCOUNTER 2024-02-04 09:40 | Outpatient (POV) | payer MEDICARE, OTHER, SELFPAY ==
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
[2024-02-04 15:20] VITALS: RESP 18; BMI 23.3
== END 2024-02-04 23:59 | disposition home or self-care (01) ==
PROVIDERS: Visit Provider Nurse Practitioner Family
DX: M51.16 Intervertebral disc disorders with radiculopathy, lumbar region (principal); Z96.82 Presence of neurostimulator; Z79.899 Other long term (current) drug therapy
CPT/HCPCS: 99212; G0463

== ENCOUNTER 2024-03-13 14:09 | Outpatient (POV) | payer MEDICARE, OTHER, SELFPAY ==
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
[2024-03-13 14:55] VITALS: BP 163/93; PULSE 75; RESP 14; O2SAT 98; BMI 23.4
== END 2024-03-13 23:59 | disposition home or self-care (01) ==
PROVIDERS: PCP Family Medicine; Visit Provider Nurse Practitioner Family
DX: M54.16 Radiculopathy, lumbar region (principal); M54.50 Low back pain, unspecified; G89.29 Other chronic pain; Z79.899 Other long term (current) drug therapy
CPT/HCPCS: 99212; G0463

== ENCOUNTER 2024-04-13 14:47 | Outpatient (POV) | payer MEDICARE, OTHER, SELFPAY ==
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
[2024-04-13 15:46] VITALS: BP 129/74; PULSE 69; RESP 14; O2SAT 98; BMI 22.6
== END 2024-04-13 23:59 | disposition home or self-care (01) ==
PROVIDERS: PCP Family Medicine; Visit Provider Nurse Practitioner Family
DX: M54.16 Radiculopathy, lumbar region (principal); M54.50 Low back pain, unspecified; G89.29 Other chronic pain; Z79.899 Other long term (current) drug therapy
CPT/HCPCS: 99212; G0463

== ENCOUNTER 2024-06-09 15:02 | Outpatient (POV) | payer MEDICARE, OTHER, SELFPAY ==
[2024-06-09 15:19] VITALS: BP 143/80; PULSE 79; RESP 16; O2SAT 95; BMI 23.4
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
== END 2024-06-09 23:59 | disposition home or self-care (01) ==
LOC: SC.PAIN 15:04
PROVIDERS: PCP Family Medicine; Visit Provider Nurse Practitioner Family
DX: M54.16 Radiculopathy, lumbar region (principal); M54.50 Low back pain, unspecified; G89.29 Other chronic pain
CPT/HCPCS: 99212; G0463

== ENCOUNTER 2024-11-29 09:41 | Outpatient (POV) | payer MEDICARE, OTHER, SELFPAY ==
--- OUTSIDE RECORDS SUMMARY | 2024-11-29 09:54 | XMS_ITS | Encounter Summary ---
Author Organization [facility] Address [address] [id number] Care Team Providers Care Upholstery Trimmer Name Role Phone Robert Lara MD Primary Care Provider + Encounter Details Date Type Department Care Team (Late st Contact Info) Description 09/23/2024 Results Follow-Up [facility] [address] [place] [address] Robert Lara MD [address] [place] [address] Social History Tobacco Use Types Packs/Day Years Used Date Smoking Tobacco: Former Cigarettes Smokeless Tobacco: Never Alcohol Use Standard Drinks/Week Comments Never 0 (1 standard drink = 0.6 oz pur e alcohol) PHQ-2 Answer Date Recorded Patient Health Questionnaire-2 Score 1 09/22/2024 Comments Unknown Sex and Gender Information Value Date Recorded Sex Assigned at Not on file Legal Sex Female 11:45 AM EDT Gender Identity Not on file Sexual Orientation Not on file documented as of this encounter Plan of Treatment Upcoming Encounters Date Type Department Care Team (Late st Contact Info) Description 03/23/2025 2:00 PM EST Office Visit [facility] [address] [place] [address] Robert Lara MD [address] [place] [address] documented as of this encounter Visit Diagnoses Diagnosis Hypercholesterolemia- Primary Pure hypercholesterolemia documented in this encounter Care Teams Upholstery Trimmer Relationship Specialty Start Date End Date Robert Lara MD [address] [place] [address] PCP - General Family Medicine 03/17/24 documented as of this encounter
--- OUTSIDE RECORDS SUMMARY | 2024-11-29 09:54 | XMS_ITS | Encounter Summary ---
Author Organization [facility] Address [address] [place] [address] Care Team Providers Care Internal Investigator Name Role Phone Robert Lara MD Primary Care Provider + Reason for Visit * Reason Onset Date Comments Med Management 10/12/2024 Encounter Details Date Type Department Care Team (Late st Contact Info) Description 10/12/2024 Telephone [facility] [address] [place] [address] Robert Lara MD [address] [place] [address] Med Management Social History Tobacco Use Types Packs/Day Years [...] on file documented as of this encounter Miscellaneous Notes * Telephone Encounter - Ambar Acosta MA - 10/12/2024 2:33 PM EDT I already tried to do the PA for this and she does not qualify for a CGM. I notified her granddaughter of this last week. * Telephone Encounter - Cari Day RegMamtaaline Rep - 10/12/2024 12:16 PM EDT Caller: Ally Iram Relationship: Self Best call back number: [phone] Which medication are you concerned about: Continuous Glucose Adult Caregiver (FreeStyle Joe 3 [place]) device Who prescribed you this medication: Robert Lara MD What are your concerns: PATIENT STATES THAT THE PHARMACY [facility] - [place], [place] - [address] - [phone] - [phone] FX STATES THAT THEY CAN'T ORDER IT FOR THE PATIENT BECAUSE HER [employer] PART B WONT PAY FOR IT. PHARMACY TOLD TO THE PATIENT TO ASK HER DOCTOR IF [employer] B AND MEDICARE WILL PAY FOR IT. documented in this encounter Plan of Treatment Upcoming Encounters Date Type Department Care Team (Late st Contact Info) Description 03/23/2025 2:00 PM EST Office Visit [facility] [address] [place] [id number] Robert Lara MD [address] [place] [address] documented as of this encounter Visit Diagnoses Not on filedocumented in this encounter Care Teams Internal Investigator Relationship Specialty Start Date End Date Robert Lara MD [address] [place] [address] PCP - General Family Medicine 03/17/24 documented as of this encounter
--- OUTSIDE RECORDS SUMMARY | 2024-11-29 09:55 | XMS_ITS | Encounter Summary ---
Author Organization Healthcare Address [address] [place] [address] Care Team Providers Care Workforce Specialist Name Role Phone Robert Lara MD Primary Care Provider [phone] Janak Noriega MD Primary Care Provider [phone] Robert Lara MD Primary Care Provider [phone] Kaelyn White APRN, DNP Unavailable [phone] Encounter Details Date Type Department Care Team (Late st Contact Info) Description 12/09/2022 Orders Only External Location [address] [place] [address] Cari Giraldo APRN [address] [place], [place] [id number] Social History Tobacco Use Types Packs/Day Years Used Date Smoking Tobacco: Never Assessed Comments Unknown Sex and Gender Information Value Date Recorded Sex Assigned at Female 04/22/2023 2:38 PM EST Legal Sex Female 8:10 PM EDT Gender Identity Female 04/22/2023 2:38 PM EST Sexual Orientation Not on file documented as of this encounter Plan of Treatment Upcoming Encounters Date Type Department Care Team (Late st Contact Info) Description 12/06/2024 10:20 AM EDT Office Visit [facility] [address] [place] [address] Kaelyn White APRN, DNP [address] [place] [address] documented as of this encounter Procedures Procedure Name Priority Date/Time Associated Diagnosis Comments XR ABDOMEN OUTSIDE IMAGES 12/09/2022 4:07 PM EDT documented in this encounter Results * XR ABDOMEN OUTSIDE IMAGES (12/09/2022 4:07 PM EDT) Anatomical Region Laterality Modality Radiographic Emeli ging 12/09/2022 4:07 PM EDT Cari Giraldo [facility]ER HAND IMG XR PROCEDURES Final Re sult documented in this encounter Visit Diagnoses Not on filedocumented in this encounter Care Teams Workforce Specialist Relationship Specialty Start Date End Date Robert Lara MD [address] [place] [address] PCP - General 08/23/20 03/08/23 Janak Noriega MD [address] [place] [address] [address] [place] [address] PCP - General 03/09/23 08/24/24 Robert Lara MD [address] [place] [address] [address] [place] [address] PCP - General 08/25/24 Kaelyn White APRN, DNP [address] [place] [address] Nurse Practitioner Urology 08/25/24 documented as of this encounter
--- OUTSIDE RECORDS SUMMARY | 2024-11-29 09:55 | XMS_ITS | Encounter Summary ---
Author Organization Healthcare Address [address] [place] [address] Care Team Providers Care Gastroenterologist Name Role Phone Robert Lara MD Primary Care Provider [phone] Janak Noriega MD Primary Care Provider [phone] Robert Lara MD Primary Care Provider [phone] Kaelyn White APRN, EVANGELINA Unavailable [phone] Encounter Details Date Type Department Care Team (Late st Contact Info) Description 12/04/2022 Orders Only External Location [address] [place] [address] Provider, External Social History Tobacco Use Types Packs/Day Years [...] Description 12/06/2024 10:20 AM EDT Office Visit [facility] [address] [place] [address] Kaelyn White APRN, DNP [address] [place] [address] documented as of this encounter Procedures Procedure Name Priority Date/Time Associated Diagnosis Comments CT OUTSIDE IMAGES 12/04/2022 8:42 AM EDT documented in this encounter Results * CT OUTSIDE IMAGES (12/04/2022 8:42 AM EDT) Anatomical Region Laterality Modality Computed Tomogra phy 12/04/2022 8:42 AM EDT us External Provider IMG CT PROCEDURES Final Result documented in this encounter Visit Diagnoses Not on filedocumented in this encounter Care Teams Gastroenterologist Relationship Specialty Start Date End Date Robert Lara MD [address] [place] [address] PCP - General 08/23/20 03/08/23 Janak Noriega MD [address] [facility] [address] [place] [address] PCP - General 03/09/23 08/24/24 Robert Lara MD [address] [place] [address] [address] [place] [address] PCP - General 08/25/24 Kaelyn White APRN, EVANGELINA [id number] [place] [address] Nurse Practitioner Urology 08/25/24 documented as of this encounter
--- OUTSIDE RECORDS SUMMARY | 2024-11-29 09:55 | XMS_ITS | Encounter Summary ---
Author Organization Healthcare Address [address] [place] [address] Care Team Providers Care Bilingual Account Manager Name Role Phone Robert Lara MD Primary Care Provider [phone] Janak Noriega MD Primary Care Provider [phone] Robert Lara MD Primary Care Provider [phone] Kaelyn White APRN, EVANGELINA Unavailable [phone] Encounter Details Date Type Department Care Team (Late st Contact Info) Description 01/06/2023 Orders Only External Location [address] [place] [address] Provider, External Social History Tobacco [...] Description 12/06/2024 10:20 AM EDT [facility] [address] [place] [address] Kaelyn White APRN, DNP [address] [place] [address] documented as of this encounter Procedures Procedure Name Priority Date/Time Associated Diagnosis Comments XR ABDOMEN OUTSIDE IMAGES 01/06/2023 8:17 AM EDT documented in this encounter Results * XR ABDOMEN OUTSIDE IMAGES (01/06/2023 8:17 AM EDT) Anatomical Region Laterality Modality Radiographic Emeli ging 01/06/2023 8:17 AM EDT External Provider IMG XR PROCEDURES Final Result documented in this encounter Visit Diagnoses Not on filedocumented in this encounter Care Teams Bilingual Account Manager Relationship Specialty Start Date End Date Robert Lara MD [address] [place] [address] PCP - General 08/23/20 03/08/23 Janak Noriega MD [address] [facility] [address] [place] [address] PCP - General 03/09/23 08/24/24 Robert Lara MD [address] [place] [address] [address] [place] [address] PCP - General 08/25/24 Kaelyn White APRN, DNP [id number] [place] [address] Nurse Practitioner Urology 08/25/24 documented as of this encounter
--- OUTSIDE RECORDS SUMMARY | 2024-11-29 09:55 | XMS_ITS | Encounter Summary ---
Author Organization [facility] Address [address] [place] [address] Care Team Providers Care Base Remover Name Role Phone Robert Lara MD Primary Care Provider + Reason for Visit * Reason Onset Date Comments APPT ISSUE 08/30/2024 Encounter Details Date Type Department Care Team (Late st Contact Info) Description 08/30/2024 Telephone [facility] [address] [place] [address] Robert Lara MD [address] [place] [address] APPT ISSUE Social History Tobacco Use Types Packs/Day Years [...] on file documented as of this encounter Functional Status documented as of this encounter Miscellaneous Notes * Telephone Encounter - Marry Ruiz RegSched Rep - 08/30/2024 3:27 PM EDT LVM RELAYING APPT AND TIME * Telephone Encounter - Shannan Norieag RegSched Rep - 08/30/2024 2:54 PM EDT Caller: Tali Canales Relationship: Self Best call back [phone] What is the best time to reach you: ANYTIME Who are you requesting to speak with (clinical staff, provider, specific staff member): CLERICAL STAFF Do you know the name of the person who called: TALI What was the call regarding: PATIENT IS ASKING IF OFFICE CAN CONTACT HER GRANDDAUGHTER FERNIE WITH APPT TIME IN SEPTEMBER Is it okay if the provider responds through MyChart: PLEASE CALL documented in this encounter Plan of Treatment Upcoming Encounters Date Type Department Care Team (Late st Contact Info) Description 03/23/2025 2:00 PM EST Office Visit [facility] [address] [place] [address] Robert Lara MD [address] [place] [address] documented as of this encounter Visit Diagnoses Not on filedocumented in this encounter Care Teams Base Remover Relationship Specialty Start Date End Date Robert Lara MD [address] [place] [address] PCP - General Family Medicine 03/17/24 documented as of this encounter
--- OUTSIDE RECORDS SUMMARY | 2024-11-29 09:55 | XMS_ITS | Encounter Summary ---
Author Organization [facility] Address [address] [place] [address] Care Team Providers Care Meter And Service Line Inspector Name Role Phone Robert Lara MD Primary Care Provider + Reason for Visit * Reason Onset Date Comments Advice Only 11/27/2024 Encounter Details Date Type Department Care Team (Late st Contact Info) Description 11/27/2024 Telephone [facility] [address] [place] [address] Robert Lara MD [address] [place] [address] Advice Only Social History Tobacco Use Types Packs/Day Years [...] encounter Miscellaneous Notes * Telephone Encounter - Isis Eldridge MA - 11/27/2024 9:43 AM EDT Suggested ER and/or to contact pain management office again and ask to be put on cx list (Dr Nav[facility]) Granddaughter Fernie aware and understood. * Telephone Encounter - ShannonOsirisKamrynAmanda mcmanus - 11/27/2024 9:26 AM EDT Caller: FERNIE TOVAR Relationship: Emergency Contact Best call back number: [phone] What is the best time to reach you: ANYTIME Who are you requesting to speak with (clinical staff, provider, specific staff member): CLINICAL STAFF What was the call regarding: PATIENT'S GRANDDAUGHTER IS CALLING TO SEE IF THE PATIENT NEEDS TO BE SEEN. SHE SAYS THAT THE PATIENT IS COMPLAINING OF LOWER BACK PAIN AND THERE APPEARS TO BE SOME SWELLING AROUND THE STIMULATOR. SHE SAYS THAT THE PATIENT HAS AN APPOINTMENT WITH PAIN MANAGEMENT ON WEDNESDAY AND DOESN'T KNOW IF THEY SHOULD WAIT UNTIL THEM OR NOT. Is it okay if the provider responds through MyChart: YES documented in this encounter Plan of Treatment Upcoming Encounters Date Type Department Care Team (Late st Contact Info) Description 03/23/2025 2:00 PM EST Office Visit [facility] [address] [place] [id number] Robert Lara MD [address] [place] [address] documented as of this encounter Visit Diagnoses Not on filedocumented in this encounter Care Teams Meter And Service Line Inspector Relationship Specialty Start Date End Date Robert Lara MD [address] [place] [address] PCP - General Family Medicine 03/17/24 documented as of this encounter
--- OUTSIDE RECORDS SUMMARY | 2024-11-29 09:55 | XMS_ITS | Clinical Summary ---
Author Organization Healthcare Address [address] [place] [address] Care Team Providers Care Bowling Ball Engraver Name Role Phone Robert Lara MD Primary Care Provider [phone] Kaelyn Whiet APRN, DNP Unavailable [phone] Allergies Active Allergy Reactions Criticality Noted Date Comments Amoxicillin-Pot Clavulanate Hives,Itching Medium Gabapentin Hallucinations Medium 09/26/2021 Pregabalin Hallucinations High 09/26/2021 Medications atorvastatin (Lipitor) 40 MG tablet Take 1 tablet (40 mg) by mouth every night. 3 Active azelastine (Astelin) 0.1 % nasal spray Administer 1 spray into each nostril if needed for allergies. 3 Active bisoprolol (Zebeta) 5 MG tablet Take 0.5 tablets (2.5 mg) by mouth 1 (one) time each day. 3 Active clonazePAM (KlonoPIN) 1 MG tablet Take 1 tablet (1 mg) by mouth 3 (three) times a day. 3 Active esomeprazole (NexIUM) [address] capsule Take 1 capsule (40 mg) by mouth 1 (one) time each day. 3 Active Ibuprofen-Famot idine 800-26.6 MG tablet Take 1 tablet by mouth 3 (three) times a day if needed (inflammation/p ain). With food 3 Active loratadine (Claritin) 10 MG tablet Take 1 tablet (10 mg) by mouth 1 (one) time each day. 3 Active metFORMIN (Glucophage) 500 MG tablet Take 1 tablet (500 mg) by mouth 2 (two) times a day with meals. 3 Active PARoxetine CR (Paxil-CR) 25 MG 24 hr tablet Take 2 tablets (50 mg) by mouth 1 (one) time each day in the morning. 3 Active multivitamin (Theragran) tablet Take 1 tablet by mouth 1 (one) time each day. Active Blood Glucose Monitoring Suppl (GNP Easy Touch Glucose Meter) device USE TO test blood sugar TWICE DAILY 4 Active GNP Easy Touch Glucose Test test strip USE TO test blood sugar TWICE DAILY 4 Active TRUEplus Lancets 30G misc USE TO test blood sugar TWICE DAILY 4 Active estradiol (Estrace) 0.1 MG/GM vaginal cream Insert 1 gram into the vagina 3x/week 30 g 3 5 Active methenamine hippurate (Hiprex) 1 g tabletIndicatio ns:Recurrent UTI Take 1 tablet by mouth 2 times a day. 60 tablet 11 5 08/26/19 26 Active Active Problems Problem Noted Date Diagnosed Date Coccyx contusion 08/25/2024 Fall 08/25/2024 Diastolic dysfunction 08/25/2024 Dizziness 08/25/2024 HLD (hyperlipidemia) 08/25/2024 Hypertension 08/25/2024 Palpitations 08/25/2024 Radiculopathy, lumbar region 06/09/2024 Chronic pain syndrome 03/17/2024 Generalized anxiety disorder 03/17/2024 Hypercholesterolemia 03/17/2024 Type 2 diabetes mellitus wit hout complication, without long-term current use of insulin 12/27/2023 Calculus of kidney 12/22/2023 Generalized abdominal pain 12/22/2023 Pain in right knee 12/22/2023 Stress incontinence (female) (male) 10/21/2023 Dorsalgia, unspecified 10/10/2023 Gastroesophageal reflux disease without esophagi tis 10/06/2023 Obstruction of left ureter 05/26/2023 Calculus of ureter 04/22/2023 Unspecified hydronephrosis 04/22/2023 Resolved Problems Problem Noted Date Diagnosed Date Resolved Date Ureteral obstruction, left 06/22/2023 0 06/24/2023 Family History Medical History Relation Name Comments Diabetes Father Dementia Mother Relation Name Status Comments Father Mother Social History Tobacco Use Types Packs/Day Years Used Date Smoking Tobacco: Never Passive Smoke Exposure: Never Smokeless Tobacco: Never Tobacco Cessation:Counseling Given: Not Answered Alcohol Use Standard Drinks/Week Comments Not Currently 0 (1 standard drink = 0.6 oz pur e alcohol) PHQ-2 Answer Date Recorded Patient Health Questionnaire-2 Score 0 10/21/2023 Comments No Sex and Gender Information Value Date Recorded Sex Assigned at Female 04/22/2023 2:38 PM EST Legal Sex Female 8:10 PM EDT Gender Identity Female 04/22/2023 2:38 PM EST Sexual Orientation Not on file Last Filed Vital Signs Vital Sign Reading Time Taken Comments Blood Pressure 125/83 08/25/2024 12:28 PM EDT Pulse 74 08/25/2024 12:28 PM EDT Temperature 36.5 C (97.7 F) 08/25/2024 12:28 PM EDT Respiratory Rate 15 06/24/2023 11:56 AM EDT Oxygen Saturation 96% 08/25/2024 12:28 PM EDT Inhaled Oxygen Concentration - - Weight 52.9 kg (116 lb 10 oz) 08/25/2024 12:28 P M EDT Height 152.4 cm (5') 10/21/2023 2:34 PM EDT Body Mass Index 22.78 10/21/2023 2:34 PM EDT Plan of Treatment Upcoming Encounters Date Type Department Care Team (Late st Contact Info) Description 12/06/2024 10:20 AM EDT Office Visit [facility] [address] [place] [address] Kaelyn White, SCHOOL BUS DRIVER, DNP [address] [place] [address] Health Maintenance Due Date Last Done Comments [facility]-Bone Density Scan 1950 [facility]-Hepatitis C Screening 1950 [facility]-Medicare Annual Wellness (AWV) 1950 [facility]-Infant/Child/Adol SDOH Screenings 1950 Diabetes: Dental Exam 10/12/1959 [facility]- SDOH Screenings 10/12/1967 [facility]-Adult SDOH Screenings 10/12/1967 [facility]-DTaP,Tdap,and Td Vaccines (1 - Tdap) 1968 CT Colonography 1994 Colonoscopy 1994 FIT-DNA 1994 FIT 1994 FOBT 1994 Sigmoidoscopy 1994 [facility]-Colorectal Cancer Screening 1994 [facility]-Zoster Vaccines (1 of 2) 10/12/1999 [facility]-Pneumococcal Vaccine: 50+ Years (2 of 2 - PCV) 03/20/2015 03/20/2014 [id number] Vaccine ( season) 2023 02/11/2022, 02/26/2021, 06/05/2020, Additional history exists [facility]-Diabetes: Hemoglobin A1C 06/16/2024 03/17/2024 [facility]-RSV Vaccine: 60+ Years or (1 - 1-dose 75+ series) 2024 [facility]-Depression Screening 10/20/2024 10/21/2023 [facility]-Influenza Vaccine (#1) 12/11/202412/25, 03/19/2023, 01/20/2016 HPV Vaccines Aged Out No longer eligi ble based on patient's age to complete this topic [facility]-HIB Vaccines Aged Out No longer e ligible based on patient's age to complete this topic [facility]-Hepatitis A Vaccines Aged Out No longer eligible based on patient's age to complete this topic [facility]-IPV Vaccines Aged Out No longer e ligible based on patient's age to complete this topic [facility]-Rotavirus Vaccines Aged Out No lo nger eligible based on patient's age to complete this topic Medical Devices Implanted Type Area Building Analyst/Supervisor Device Identifier Shelf Expiration Date Model / Serial / Lot Spinal Cord Stimulator Spinal Cord Stimulator N/A: Back Stent Ureteral [employer] Monofilament 7f/22cm - S. - [id number] Implanted:Qty: 1 on 06/21/2023 by Jose Guillen MD at [facility] Stent Left: Ureter [employer] [id number] 09/20/2025 [id number] / . / Stent Ureteral Double Pigtail Pos 6fr 22cm - [id number] Implanted:Qty: 1 on 05/24/2023 by Jose Guillen MD at [facility] Left: Ureter [id number] 12/17/2024 [id number] / / [id number] Insurance MEDICARE [employer] MEDICAID Advance Directives * Full Code (Latest Code Status on File) Date Activated Date Inactivated Comments 06/21/2023 12:26 PM 06/24/2023 2:53 PM Question Answer Comments Patient has decision-making capacity? Yes Care Teams Bowling Ball Engraver Relationship Specialty Start Date End Date Robert Lara MD PCP - General 08/25/24 Kaelyn White, SCHOOL BUS DRIVER, DNP [address] [place] [address] Nurse Practitioner Urology 08/25/24
--- OUTSIDE RECORDS SUMMARY | 2024-11-29 09:55 | XMS_ITS | Encounter Summary ---
Author Organization [facility] Address [address] [place] [address] Care Team Providers Care Curbstone Setter Name Role Phone Robert Lara MD Primary Care Provider + Encounter Details Date Type Department Care Team (Late st Contact Info) Description 07/09/2024 Results Follow-Up [facility] [address] [place] [address] Robert Lara MD [address] [place] [address] Social History Tobacco Use Types Packs/Day Years Used Date Smoking Tobacco: Former Cigarettes Smokeless Tobacco: Never Alcohol Use Standard Drinks/Week Comments Never 0 (1 standard drink = 0.6 oz pur e alcohol) PHQ-2 Answer Date Recorded Patient Health Questionnaire-9 Score 4 03/17/2024 Comments Unknown Sex and Gender Information Value Date Recorded Sex Assigned at Not on file Legal Sex Female 11:45 AM EDT Gender Identity Not on file Sexual Orientation Not on file documented as of this encounter Progress Notes * Kaelyn Wright RegSched Rep - 07/10/2024 3:14 PM EDT RELAYED MESSAGE TO GRANDDAUGHTER AND SHE STATED THEY WOULD NOT BE ABLE TO BRING HER BACK IN UNTIL WEDNESDAY. documented in this encounter Plan of Treatment Upcoming Encounters Date Type Department Care Team (Late st Contact Info) Description 03/23/2025 2:00 PM EST Office Visit [facility] [address] [place], [place] [address] Robert Lara MD [address] [place], [place] [id number] documented as of this encounter Results * (ABNORMAL) Urine Culture - Urine, Urine, Clean Catch (07/12/2024 2:06 PM EDT) Urine Culture Final report(A) [facility] Result 1 Enterococcus faecalis(A) [facility] Comment: Enterococci susceptible to penicillin are predictably susceptible to ampicillin, amoxicillin, ampicillin-sulbactam, amoxicillin-clavulanate, and piperacillin-tazobactam for [id number] producing enterococci. (CLSI 2018) For Enterococcus species, aminoglycosides (except for high-level resistance screening), cephalosporins, clindamycin, and trimethoprim-sulfamethoxazole are not effective clinically. (CLSI, [id number]-[id number], 2016) Greater than 100,000 colony forming units per mL Note: this isolate is vancomycin-susceptible. This information is provided for epidemiologic purposes only: vancomycin is not among the antibiotics recommended for therapy of urinary tract infections caused by Enterococcus. Susceptibility Testing Comment [facility] Comment: S = Susceptible; I = Intermediate; R = Resistant P = Positive; N = Negative MICS are expressed in micrograms per mL Antibiotic RSLT#1 RSLT#2 RSLT#3 RSLT#4 Ciprofloxacin S Levofloxacin S Nitrofurantoin S Penicillin S Tetracycline S Vancomycin S Urine Urine specimen obtained by clean catch procedure / Unknown 07/12/2024 2:06 PM EDT 07/12/2024 Comment: Mat [facility]) - 07/15/2024 8:08 PM EDT Performed at: [facility] [id number] Snow Shoveler: Guillaume Stroud PhD, Phone: [phone] Patient Fasting: N us Robert Lara MD MICROBIOLOGY - GENERAL O RDERABLES Final Result [facility] [address] [place] [address], [place] [phone] [facility] [address] [place] [address], [place] [phone] documented in this encounter Visit Diagnoses Diagnosis Acute cystitis with hematuria- Primary documented in this encounter Care Teams Curbstone Setter Relationship Specialty Start Date End Date Robert Lara MD [address] [place] [id number] PCP - General Family Medicine 03/17/24 documented as of this encounter
--- OUTSIDE RECORDS SUMMARY | 2024-11-29 09:55 | XMS_ITS | Clinical Summary ---
Author Organization [facility] Address [address] [place] [address] Care Team Providers Care Equal Employment Opportunity Officer Name Role Phone Robert Lara MD Primary Care Provider + Allergies Active Allergy Reactions Criticality Noted Date Comments Amoxicillin-Pot Clavulanate Hives,Itching Medium Gabapentin Delirium 03/17/2024 Pregabalin Rash Low 03/17/2024 Medications atorvastatin (LIPITOR) 40 MG tabletIndications :Hypercholesterol emia Take 1 tablet by mouth Daily. 90 tablet 3 4 Active esomeprazole (nexIUM) 40 MG capsuleIndication s:Gastroesophagea l reflux disease without esophagitis Take 1 capsule by mouth Every Morning Before Breakfast. 90 capsule 3 4 Active loratadine (CLARITIN) 10 MG tablet Take 1 tablet by mouth Daily. 90 tablet 3 4 Active ibuprofen (ADVIL,MOTRIN) 600 MG tablet Take 1 tablet by mouth Every 6 (Six) Hours As Needed for Mild Pain. Active PARoxetine CR (PAXIL-CR) 25 MG 24 hr tabletIndications :Generalized anxiety disorder TAKE 2 TABLETS BY MOUTH EVERY MORNING 90 tablet 3 5 Active metFORMIN (GLUCOPHAGE) 500 MG tabletIndications :Type 2 diabetes mellitus without complication, without long-term current use of insulin TAKE 1 TABLET BY MOUTH TWICE DAILY WITH MEALS 180 tablet 1 5 Active bisoprolol (ZEBeta) 5 MG tabletIndications :Primary hypertension TAKE 1/2 TABLET BY MOUTH DAILY 45 tablet 1 5 Active methenamine (HIPREX) 1 g tablet Take 1 tablet by mouth 2 (Two) Times a Day With Meals. Active estradiol (ESTRACE) 0.1 MG/GM vaginal cream Insert 2 g into the vagina 3 (Three) Times a Week. Active clonazePAM (KlonoPIN) 1 MG tabletIndications :Generalized anxiety disorder Take 1 tablet by mouth 3 (Three) Times a Day As Needed for Anxiety. for anxiety 90 tablet 5 5 Active ezetimibe (Zetia) 10 MG tabletIndications :Hypercholesterol emia Take 1 tablet by mouth Daily. 30 tablet 5 5 Active Continuous Glucose Sensor (FreeStyle Joe 3 Plus Sensor)Indication s:Type 2 diabetes mellitus with hyperglycemia, without long-term current use of insulin Use Every 15 (Fifteen) Days. 2 each 5 Active Continuous Glucose Auto Air Conditioning Installer (FreeStyle Joe 3 [place]) deviceIndications :Type 2 diabetes mellitus with hyperglycemia, without long-term current use of insulin Use 1 each Daily. 1 each 5 Active Active Problems Problem Noted Date Diagnosed Date Type 2 diabetes mellitus wit hout complication, without long-term current use of insulin 03/17/2024 Assessment & Plan (09/22/2024 3:15 PM EDT): Orders: Hemoglobin A1c Comprehensive Metabolic Panel POC Albumin/Creatinine Ratio Urine Assessment & Plan (03/17/2024 3:52 PM EST): Suspected to be controlled. Surveillance A1c ordered today. Reassess every 6 months Gastroesophageal reflux disease without esophagi tis 03/17/2024 Assessment & Plan (09/22/2024 3:15 PM EDT): Assessment & Plan (03/17/2024 3:50 PM EST): Stable. Continue PPI. Reassess every 6 to 12 months Generalized anxiety disorder 03/17/2024 Assessment & Plan (09/22/2024 3:15 PM EDT): Orders: clonazePAM (KlonoPIN) 1 MG tablet; Take 1 tablet by mouth 3 (Three) Times a Day As Needed for Anxiety. for anxiety Assessment & Plan (03/17/2024 3:51 PM EST): Stable. Continue paroxetine and as needed clonazepam. Patient advised to reduce clonazepam to half tablet when able. She has been made aware that use of medication such as clonazepam can increase her risk of fall Hypercholesterolemia 03/17/2024 Assessment & Plan (09/22/2024 3:15 PM EDT): Orders: Lipid Panel Comprehensive Metabolic Panel Assessment & Plan (03/17/2024 3:51 PM EST): Likely stable. Surveillance lipid ordered today. Continue statin therapy Chronic pain syndrome 03/17/2024 Assessment & Plan (03/17/2024 3:50 PM EST): Stable. Managed at [facility] interventional pain management. Follow-up as directed Primary hypertension 03/17/2024 Assessment & Plan (09/22/2024 3:15 PM EDT): Orders: Comprehensive Metabolic Panel CBC (No Diff) Assessment & Plan (03/17/2024 3:52 PM EST): Stable. Continue low-dose bisoprolol. Reassess in 6 months Encounters Date Type Department Care Team Description 11/27/2024 [facility] MEDICINE [address] [address] Robert Lara MD Advice Only 10/12/2024 [facility] FAMILY MEDICINE [address] [address] Robert Lara MD Med Management 09/27/2024 [facility] MEDICINE [address] [address] Robert Lara MD Prior Authorization (Free Style Joe 3 Sensor & [place] ) 09/25/2024 [facility] MEDICINE [address] [address] Robert Lara MD CONTINUOUS GLUCOSE MONITOR 09/23/2024 Results Follow-Up [facility] MEDICINE [address] [place] [address] Robert Lara MD 09/22/2024 2:15 PM EDT Office Visit [facility] [address] [place] [address] Robert Lara MD Medicare annual wellness visit, subsequent (Primary Dx); Primary hypertension; Type 2 diabetes mellitus with hyperglycemia, without long-term current use of insulin; Hypercholesterolemia; Generalized anxiety disorder; Gastroesophageal reflux disease without esophagitis 09/22/2024 Travel 09/19/[address] [facility] [address] [place] [address] Robert Lara MD Blood Sugar Problem; Advice Only 09/09/[address] [facility] [address] [place] [address] Robert Lara MD Type 2 diabetes mellitus without complication, without long-term current use of insulin; Primary hypertension 09/07/[address] [facility] [address] [place] [address] Robert Lara MD SUGAR LEVEL S QUESTION 09/05/[address] [facility] [address] [place] [address] Robert Lara MD Generalized anxiety disorder 08/31/[address] [facility] [address] [place] [address] Robert Lara MD Med Management 08/30/[address] [facility] MEDICINE [address] [place] [address] Robert Lara MD APPT ISSUE from Last 3 Months Immunizations Immunization Administration Dates Next Due Fluzone High-Dose 65+YRS 12/26/2023,01/20/2016 Fluzone High-Dose 65+yrs 03/19/2023 Pneumococcal Polysaccharide (PPSV23) 03/20/2014 Family History Medical History Relation Name Comments Diabetes Father No Known Problems Mother Relation Name Status Comments Father Mother Social History Tobacco Use Types Packs/Day Years Used Date Smoking Tobacco: Former Cigarettes Smokeless Tobacco: Never Tobacco Cessation:Counseling Given: Not Answered Alcohol Use Standard Drinks/Week Comments Never 0 (1 standard drink = 0.6 oz pur e alcohol) PHQ-2 Answer Date Recorded Patient Health Questionnaire-2 Score 1 09/22/2024 Comments Unknown Sex and Gender Information Value Date Recorded Sex Assigned at Not on file Legal Sex Female 11:45 AM EDT Gender Identity Not on file Sexual Orientation Not on file Last Filed Vital Signs Vital Sign Reading Time Taken Comments Blood Pressure 120/65 09/22/2024 2:18 PM EDT Pulse 67 09/22/2024 2:18 PM EDT Temperature 36.2 C (97.1 F) 09/22/2024 2:18 PM EDT Respiratory Rate 20 09/22/2024 2:18 PM EDT Oxygen Saturation 99% 09/22/2024 2:18 PM EDT Inhaled Oxygen Concentration - - Weight 54.6 kg (120 lb 6.4 oz) 09/22/2024 2:18 P M EDT Height 152.4 cm (5') 09/22/2024 2:18 PM EDT Body Mass Index 23.51 09/22/2024 2:18 PM EDT Plan of Treatment Upcoming Encounters Date Type Department Care Team (Late st Contact Info) Description 03/23/2025 2:00 PM EST Office Visit [facility] FAMILY MEDICINE [address] [address] Robert Lara MD [address] [address] Health Maintenance Due Date Last Done Comments DXA SCAN 1949 DIABETIC EYE EXAM 10/12/1959 DIABETIC FOOT EXAM 10/12/1959 TDAP/TD VACCINES (1 - Tdap) 1968 COLOGUARD 1994 COLON CANCER SCREENING 5 YEA R SIGMOIDOSCOPY 1994 COLONOSCOPY 1994 [address]AL CANCER SCREENING 1994 CT COLONOGRAPHY 1994 FECAL OCCULT BLOOD TEST 1994 FIT Testing (1 year) 1994 ZOSTER VACCINE (1 of 2) 10/12/1999 Pneumococcal Vaccine 50+ (2 of 2 - PCV) 03/20/2015 03/20/2014 COVID-19 Vaccine (5 - 2023-2 5 season) 2023 02/11/2022, 02/26/2021, 06/05/2020, Additional history exists HEPATITIS C SCREENING 02/07/2024 RSV Vaccine - Adults (1 - 1- dose 75+ series) 2024 INFLUENZA VACCINE 01/10/2025 12/26/2023, , 01/20/2016 HEMOGLOBIN A1C 03/24/2025 09/22/2024, 03/17/2024 ANNUAL WELLNESS VISIT 09/22/2025 09/22/2024, 025 LIPID PANEL 09/22/2025 09/22/2024, 03/17/2024 URINE MICROALBUMIN-CREATININ E RATIO (uACR) 09/22/2025 09/22/2024 Procedures Procedure Name Priority Date/Time Associated Diagnosis Comments CBC (NO DIFF) Routine 09/22/2024 3:00 PM EDT Primary hypertension COMPREHENSIVE METABOLIC PANEL Routine 09/22/2024 3:00 PM EDT Primary hypertension Type 2 diabetes mellitus with hyperglycemia, without long-term current use of insulin Hypercholesterolemia LIPID PANEL Routine 09/22/2024 3:00 PM EDT Hypercholesterolemia HEMOGLOBIN A1C Routine 09/22/2024 3:00 PM EDT Type 2 diabetes mellitus with hyperglycemia, without long-term current use of insulin POC ALBUMIN/CREATININE RATIO Routine 09/22/2024 2:57 PM EDT Type 2 diabetes mellitus with hyperglycemia, without long-term current use of insulin from Last 3 Months Results * (ABNORMAL) CBC (No Diff) (09/22/2024 3:00 PM EDT) WBC 10.9(H) 3.4 - 10.8 x10E3/uL [facility] RBC 5.31(H) 3.77 - 5.28 x10E6/uL [facility] Hemoglobin 12.3 11.1 - 15.9 g/dL [facility] Hematocrit 41.6 34.0 - 46.6 % [facility] MCV 78(L) 79 - 97 fL [facility] MCH 23.2(L) 26.6 - 33.0 pg [facility] MCHC 29.6(L) 31.5 - 35.7 g/dL [facility] RDW 15.6(H) 11.7 - 15.4 % [facility] Platelets 304 150 - 450 x10E3/uL [facility] Blood 09/22/2024 3:00 PM EDT 09/22/2024 Narrative [facility] (AMBULATORY) - 09/23/2024 6:09 AM EDT Performed at: 01 - [address] [id number] Toll Settlement Clerk: Guillaume Stroud PhD, Phone: [phone] Patient Fasting: N us Robert Lara MD LAB BLOOD ORDERABLES Fin al Result [facility] (AMBULATORY) [address] [place], [place] [id number], [facility] [address] [place] [address], * (ABNORMAL) Hemoglobin A1c (09/22/2024 3:00 PM EDT) Hemoglobin A1C 7.6(H) 4.8 - 5.6 % [facility] Comment: Prediabetes: 5.7 - 6.4 Diabetes: >6.4 Glycemic control for adults with diabetes: <7.0 Blood 09/22/2024 3:00 PM EDT 09/22/2024 Narrative [facility] (AMBULATORY) - 09/23/2024 6:09 AM EDT Performed at: 01 - [address] [id number] Toll Settlement Clerk: Guillaume Stroud PhD, Phone: [phone] Patient Fasting: N Robert Lara MD LAB BLOOD ORDERABLES Fin al Result Performing Organization Address City/[facility]/ZIP Co de Phone Number [facility] [address] [place] [address], [place] [phone] [facility] [address] [place] [address], [place] [phone] * (ABNORMAL) Lipid Panel (09/22/2024 3:00 PM EDT) Total Cholesterol 182 100 - 199 mg/dL [facility] Triglycerides 169(H) 0 - 149 mg/dL [facility] HDL Cholesterol 40 >39 mg/dL [facility] VLDL Cholesterol Dwight 30 5 - 40 mg/dL [facility] LDL Chol Calc (NIH) 112(H) 0 - 99 mg/dL [facility] Blood 09/22/2024 3:00 PM EDT 09/22/2024 [facility] (AMBULATORY) - 09/23/2024 6:09 AM EDT Performed at: - [address] [id number] Toll Settlement Clerk: Guillaume Stroud PhD, Phone: [phone] Patient Fasting: N Robert Lara MD LAB BLOOD ORDERABLES Fin al Result Performing Organization Address City/[facility]/ZIP Co de Phone Number [facility] [address] [place] [address], [place] [phone] [facility] [address] [place] [address], [place] [phone] * (ABNORMAL) Comprehensive Metabolic Panel (09/22/2024 3:00 PM EDT) Glucose 153(H) 70 - 99 mg/dL [facility] BUN 20 8 - 27 mg/dL [facility] Creatinine 0.91 0.57 - 1.00 mg/dL [facility] EGFR Result 66 >59 mL/min/1.7 3 [facility] BUN/Creatinine Ratio 22 12 - 28 [facility] Sodium 140 134 - 144 mmol/L [facility] Potassium 4.1 3.5 - 5.2 mmol/L [facility] Chloride 102 96 - 106 mmol/L [facility] Total CO2 23 20 - 29 mmol/L [facility] Calcium 9.6 8.7 - 10.3 mg/dL [facility] Total Protein 7.3 6.0 - 8.5 g/dL [facility] Albumin 4.5 3.8 - 4.8 g/dL [facility] Globulin 2.8 1.5 - 4.5 g/dL [facility] Total Bilirubin 0.4 0.0 - 1.2 mg/dL [facility] Alkaline Phosphatase 107 44 - 121 IU/L [facility] AST (SGOT) 36 0 - 40 IU/L [facility] ALT (SGPT) 23 0 - 32 IU/L [facility] Blood 09/22/2024 3:00 PM EDT 09/22/2024 Narrative [facility] (AMBULATORY) - 09/23/2024 6:09 AM EDT Performed at: - [address] [id number] Toll Settlement Clerk: Guillaume Stroud PhD, Phone: [phone] Patient Fasting: N us Robert Lara MD LAB BLOOD ORDERABLES Fin al Result [facility] (AMBULATORY) [address] [place] [address], [facility] [address] [place] [address], * (ABNORMAL) POC Albumin/Creatinine Ratio Urine (09/22/2024 2:57 PM EDT) POC ALBUMIN, URINE 80 mg/L POC CREATININE, URINE 200 mg/dL POC Urine Albumin Creatinine Ratio 30-300 mg/g <30 Comment:abnormal Lot Number [id number] Expiration Date 08/09/2025 Urine 09/22/2024 2:57 PM EDT Robert Lara MD POINT OF CARE TEST ORDER CANDY Final Result from Last 3 Months Insurance [id number] [place] [address] [facility] MEDICARE B ONLY Member Subscriber Plan / Payer (Ef fective 2014-Present) Name:Ally Iram Member ID:[id number] Relation to Subscriber:Self Name:Ally Iram Subscriber ID:[id number] Payer ID:[id number] Group ID:Not on file Type:Not on file Address: [place] [id number] Care Teams Equal Employment Opportunity Officer Relationship Specialty Start Date End Date Robert Lara MD [facility] [place] [address] PCP - General Family Medicine 03/17/24
--- OUTSIDE RECORDS SUMMARY | 2024-11-29 09:55 | XMS_ITS | Encounter Summary ---
Author Organization Healthcare Address [address] [place] [address] Care Team Providers Care Bath Design Sales Consultant Name Role Phone Robert Lara MD Primary Care Provider [phone] Janak Noriega MD Primary Care Provider [phone] Robert Lara MD Primary Care Provider [phone] Kaelyn White APRN, EVANGELINA Unavailable [phone] Encounter Details Date Type Department Care Team (Late st Contact Info) Description 02/17/2023 Orders Only External Location [address] [place] [address] Provider, External Social History Tobacco [...] Description 12/06/2024 10:20 AM EDT Office Visit [facility] [address] [place] [address] Kaelyn White APRN, DNP [address] [place] [address] documented as of this encounter Procedures Procedure Name Priority Date/Time Associated Diagnosis Comments XR ABDOMEN OUTSIDE IMAGES 02/17/2023 11:32 AM EST documented in this encounter Results * XR ABDOMEN OUTSIDE IMAGES (02/17/2023 11:32 AM EST) Anatomical Region Laterality Modality Radiographic Emeli ging 02/17/2023 11:3 2 AM EST us External Provider IMG XR PROCEDURES Final Result documented in this encounter Visit Diagnoses Not on filedocumented in this encounter Care Teams Bath Design Sales Consultant Relationship Specialty Start Date End Date Robert Lara MD [address] [place] [address] PCP - General 08/23/20 03/08/23 Janak Noriega MD [address] [place] [address] [address] [place] [address] PCP - General 03/09/23 08/24/24 Robert Lara MD [address] [place] [address] [address] [place] [address] PCP - General 08/25/24 Kaelyn White APRN, DNP [id number] [place] [address] Nurse Practitioner Urology 08/25/24 documented as of this encounter
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
[2024-11-29 10:48] VITALS: BP 186/88; PULSE 67; RESP 14; O2SAT 97; BMI 27.3
== END 2024-11-29 23:59 | disposition home or self-care (01) ==
PROVIDERS: PCP Family Medicine; Visit Provider Nurse Practitioner Family
DX: M51.26 Other intervertebral disc displacement, lumbar region (principal); Z79.899 Other long term (current) drug therapy; Z79.1 Long term (current) use of non-steroidal anti-inflammatories (NSAID)
CPT/HCPCS: 99212; G0463